=== PATIENT | male | born 1955 | race Caucasian/White ===

== ENCOUNTER 2023-10-25 07:55 | Outpatient (OUT) | payer OTHER, SELFPAY ==
--- NOTE | 2023-10-25 | XR_ITS ---
The [address] [address] Patient Name: VANESSA KEY MRN: [id number] date: 1955 Sex: M Assigned Patient Location: Current Patient Location: Accession/Order Number: [id number] Exam Date: 10/25/2023 07:56 Report Date: 10/27/2023 04:17 At the request of: NIR JEFFERS Procedure: XR shoulder LT min 2V PROCEDURE: XR shoulder LT min 2V HISTORY: LEFT SHOULDER PAIN since falling 3 months ago COMPARISON: None. FINDINGS: BONES:Small calcification along superior lateral margin of humeral head near site of rotator cuff attachment. Unremarkable glenohumeral joint and acromioclavicular joint. SOFT TISSUES:No visible soft tissue swelling. EFFUSION:None visible. OTHER: Negative. XR/XR shoulder LT min 2V IMPRESSION: 1. Nonspecific calcification near humeral head attachment of the superior rotator cuff; avulsion fracture versus calcific tendinitis. Consider MRI for further evaluation. Electronically authenticated by: NIR SANDOVAL Date: 10/27/2023 04:17
== END 2023-10-25 07:56 | disposition home or self-care (01) ==
LOC: EC 07:56
PROVIDERS: Visit Provider Orthopaedic Surgery
DX: M25.512 Pain in left shoulder (principal)
CPT/HCPCS: 73030

== ENCOUNTER 2023-12-24 10:12 | Outpatient (OUT) | payer OTHER, SELFPAY ==
--- OUTSIDE RECORDS SUMMARY | 2023-12-24 10:25 | XMS_ITS | CCD ---
Author Organization [facility] Care Team Providers Care Research Tech Name Role Phone PAULETTE CRAIN Unavailable Unavailable PAULETTE CRAIN Unavailable Unavailable REQUEST, NONE LISTED Consulting Unavaila ble REQUEST, NONE LISTED Admitting Unavaila ble REQUEST, NONE LISTED Attending Unavaila ble REQUEST, NONE LISTED Admitting Unavaila ble REQUEST, NONE LISTED Attending Unavaila ble REQUEST, NONE LISTED Consulting Unavaila ble REQUEST, NONE LISTED Consulting Unavaila ble REQUEST, NONE LISTED Admitting Unavaila ble REQUEST, NONE LISTED Attending Unavaila ble DO Corbin Mckinney Jr Attending Provider ARIELLE TERRELL Primary Care Physician Elayne Zepeda Referring Unavaila ble Elayne Zepeda Attending Unavaila Elayne Weiner Admitting Unavaila ble Elayne Zepeda Attending Unavaila ble Medications Current Medications Medication Drug Class(es) Dates Sig (Normalized) Sig (Original) {1 (Ascorbic Acid 7540 MG / POLYETHYLENE GLYCOL 3350 28815 MG / Potassium Chloride 1200 MG / Sodium Ascorbate 53018 MG / Sodium Chloride 3200 MG Powder for Oral Solution) / 1 (POLYETHYLENE GLYCOL 3350 409824 MG / Potassium Chloride 1000 MG / Sodium Chlori (1 source) Osmotic Laxative, Vitamin C Start: 12-16-2023 Plenvu oral powder for reconstitution See Instructions, 1 EA, Refill(s) 0, Oral, [id number], 78.2, kg, 12/16/23 12:35:00 EDT, Weight Dosing Start Date: 12/16/23 Status: Ordered Problems Active Problems Problem Classification Problem Date Documented Date Episodic/Chronic Other screening for suspected conditions (not mental disorders or infectious disease) (1 source) Screening for malignant neoplasm of colon done; Translations: [Encounter for screening for malignant neoplasm of colon] Onset: 12-14-2023 Episodic Unclassified (2 sources) Encounter for screening for cardiovascular disorders / Z13.6(ICD-9) Onset: 05-31-2017 Past or Other Problems Problem Classification Problem Date Documented Date Episodic/Chronic Unclassified (1 source) Encounter for screening for cardiovascular disorders; Translations: [Encounter for screening for cardiovascular disorders] Onset: 05-31-2017 Results Test Name Value Interpretation Reference Range Facility Main OR Intraoperative Recor don 12-23-2023 Main OR Intraoperative Record Main OR Intraoperative Record IntraOp Document Type FT Summary Primary Physician: Elayne Zepeda MD Finalized Date/Time: 12/23/23 10:58:27 Pt. Name: HARDYFROYLAN D.O.B./Sex: 1955 Male Med Rec #: [id number] Physician: Elayne Zepeda MD Financial #: [id number] Pt. Type: O Room/Bed: / Admit/Disch: 12/22/23 13:06:08 - 12/22/23 23:59:59 Institution: Case Times FT Entry 1 Patient Times In Room 12/22/23 14:02:00 Out Room 12/22/23 14:25:00 Procedure Times Start 12/22/23 14:04:00 Stop 12/22/23 14:22:00 Anesthesia Times Start 12/22/23 14:02:00 Stop 12/22/23 14:25:00 Time at [facility] 12/22/23 14:07:00 Last Modified By: Maria Douglas CST 12/23/23 10:58:25 General Comments: 12/23/23 Chart opened to review and send charges [facility]oth CSFA Case Attendance FT Entry 1 Entry 2 Entry 3 Case Attendee Alisha ENNIS, Yoel Pittman RN, Lisa Mohan Role Performed Anesthesiologist Repair Weaver - Primary Scrub - Primary Supervisor Keymodule [employer] Time In 12/22/23 14:00:00 12/22/23 14:00:00 12/22/23 14:00:00 Time Out 12/22/23 14:18:00 12/22/23 14:25:00 12/22/23 14:25:00 Procedure COLONOSCOPY(.) COLONOSCOPY(.) COLONOSCOPY(.) Comments Dr. Louis supervising case Last Modified By: Ish Pittman RN, RN, Ish Pires RN 12/22/23 14:25:57 12/22/23 14:25:57 12/22/23 14:25:57 Entry 4 Entry 5 Case Attendee Duane HARRIS, Elayne Murray DNP, TRAVEL ASSISTANT, [place]ie Stanley Role Performed Surgeon - Primary TRAVEL ASSISTANT Time In 12/22/23 14:00:00 12/22/23 14:17:00 Time Out 12/22/23 14:25:00 12/22/23 14:25:00 Procedure COLONOSCOPY(.) COLONOSCOPY(.) Comments Last Modified By: Ish Pittman RN, RN, Morgan E 12/22/23 14:25:57 12/22/23 14:25:57 Perioperative Protocols FT Pre-Care Text: Implements protective measures prior to operative or invasive procedure, confirms identity before the operative or invasive procedure, verifies operative procedure, surgical site, and laterality Entry 1 Procedure(s) COLONOSCOPY(.) Patient Identity Birthday, ID Band Verified (select at Check, Patient least 2): Participation Consents / H and P Anesthesia Consent, Operative Site N/A Verified H&P, Surgery/Procedure Marking Verified Consent Surgical Site No Laterality Verified n/a Verified Procedure Verified Yes Correct Patient Yes Position Verified Availability Equipment, Medication Prep Dry n/a Verified (If Applicable) PreOp Antibiotic No Time Out Yoel Shepherd, Given Participants Ish Pittman RN, Sparks, Micala E, Duane HARRIS, Elayne Mejias Time Out Complete 12/22/23 14:01:00 Outcomes Met? Yes Last Modified By: Ish Pittman RN 12/22/23 14:03:53 Post-Care Text: The patient is free from signs and symptoms of injury caused by extraneous objects Allergy Information FT Pre-Care Text: Verifies allergies Entry 1 Allergies Reviewed? Yes Allergies Reviewed Self/Patient With Outcomes Met? Yes Last Modified By: Ish Pittman RN 12/22/23 14:04:00 Post-Care Text: The patient received appropriate medication(s) safely administered during the perioperative period Surgical Procedures FT Entry 1 Procedure Description Procedure COLONOSCOPY Modifiers . Surgeon Description Colonoscopy with sigmoid colon polypectomy x2, hemoclip x1 applied to one of the polypectomy sites, sigmoid colon biopsy at 35cm, rectal polypectomy Primary Procedure Yes Primary Surgeon Elayne Zepeda MD Start 12/22/23 14:04:00 Stop 12/22/23 14:22:00 Anesthesia Type General Surgical Service Gastroenterology Wound Class 2 - Clean-Contaminated Last Modified By: Ish Pittman RN 12/22/23 14:32:37 General Case Data FT Pre-Care Text: Classifies surgical wound, implements aseptic technique, initiates traffic control Entry 1 Case Information OR ENDO 1 FT Case Level Level 2 Wound Class 2 - Clean-Contaminated Specialty Gastroenterology ASA Class 1 Preop Diagnosis Colon cancer screening Postop Same As Preop No Postop Diagnosis Diverticulosis, Sigmoid Outcomes Met? Yes colon polyps x2, Jacinta erythema in the sigmoid colon at 35cm, Rectal polyp, Internal hemorrhoids Last Modified By: Maria Douglas CST 12/23/23 10:58:10 Post-Care Text: The patient is free from signs and symptoms of infection Skin Assessment (Pre Procedure) FT Pre-Care Text: Implements protective measures to prevent skin/ tissue injury due to thermal or mechanical sources Evaluates for signs and symptoms of physical injury to skin and tissue Entry 1 Skin Integrity Dry, Warm Skin Abnormality No Outcomes Met? Yes Last Modified By: Ish Pittman RN 12/22/23 14:04:36 Post-Care Text: The patient is free from signs and symptoms of injury caused by extraneous objects Patient Positioning FT Pre-Care Text: Identifies physical alterations that require additional precautions for procedure-specific positioning, verifies presence of p (more content not included)... Normal [facility] Discharge Instructionson Discharge Instructions Discharge Instruc tions FROYLAN HARDY :1955 Visit Date:12/22/2023 Inpatient Discharge Instructions Your Care Team Admitting Physician - Elayne Zepeda MD Referring Physician - Elayne Zepeda MD Reason for Your Visit SCREEN FOR COLON CANCER Your Diagnosis Colon cancer screening Tests Performed Pathology Tissue Exam -- Results Pending -- Please visit your patient portal for your results or contact your primary care physician. Procedure History Colonoscopy (12/22/2023), right inguinal hernia repair (02/07/2016), hernia repair as child, History of right hip replacement, left ring finger tendon repair, right ankle fx. Discharge Vitals Temperature (Temporal Artery) 36.6 ?C Heart Rate (Monitored) 82 Respiratory Rate 19 Blood Pressure 120/82 Height 175.2 cm Weight 78.2 kg BMI 25.48 What to do next Instructions From Your Doctor Event Name Event Result Discharge Instructions Freetext Recommendations: Repeat colonoscopy: 3-5 years based on pathology Follow-up: in clinic for 1-2 weeks when pathology is available. Diet:: Previous. Medication resumption: Continue current medications, Avoid NSAIDs Discharge Activity Resume normal activities in 24 hours Discharge Restrictions No driving for 24 hrs Discharge Diet(s) Regular Call Your Doctor For Persistent or heavy bleeding Discharge Instructions Discharge Instructions New Follow Up Appointments after Discharge Follow Up with Duane HARRIS, ANUJA Taylor, [facility] When: Comments: Office will call to schedule follow up appointment and/or review any pending biopsy results Call for any problems. Where: [address] [place], [place] [address], [address] [address] [phone] Allergies No Known Allergies Education Materials Colon Polyps Colon polyps are tissue growths inside the colon, which is part of the large intestine. They are one of the types of polyps that can grow in the body. A polyp may be a round bump or a mushroom-shaped growth. You could have one polyp or more than one. Most colon polyps are noncancerous (benign). However, some colon polyps can become cancerous over time. Finding and removing the polyps early can help prevent this. What are the causes? The exact cause of colon polyps is not known. What increases the risk? The following factors may make you more likely to develop this condition: ? Having a family history of colorectal cancer or colon polyps. ? Being older than 45 years of age. ? Being younger than 45 years of age and having a significant family history of colorectal cancer or colon polyps or a genetic condition that puts you at higher risk of getting colon polyps. ? Having inflammatory bowel disease, such as ulcerative colitis or Crohn's disease. ? Having certain conditions passed from parent to child (hereditary conditions), such as: ? Familial adenomatous polyposis (FAP). ? Cedillo syndrome. ? Turcot syndrome. ? Peutz?Jeghers syndrome. ? MUTYH-associated polyposis (MAP). ? Being overweight. ? Certain lifestyle factors. These include smoking cigarettes, drinking too much alcohol, not getting enough exercise, and eating a diet that is high in fat and red meat and low in fiber. ? Having had childhood cancer that was treated with radiation of the abdomen. What are the signs or symptoms? Many times, there are no symptoms. If you have symptoms, they may include: ? Blood coming from the rectum during a bowel movement. ? Blood in the stool (feces). The blood may be bright red or very dark in color. ? Pain in the abdomen. ? A change in bowel habits, such as constipation or diarrhea. How is this diagnosed? This condition is diagnosed with a colonoscopy. This is a procedure in which a lighted, flexible scope is inserted into the opening between the buttocks (anus) and then passed into the colon to examine the area. Polyps are sometimes found when a colonoscopy is done as part of routine cancer screening tests. How is this treated? This condition is treated by removing any polyps that are found. Most polyps can be removed during a colonoscopy. Those polyps will then be tested for cancer. Additional treatment may be needed depending on the results of testing. Follow these instructions at home: Eating and drinking ? Eat foods that are high in fiber, such as fruits, vegetables, and whole grains. ? Eat foods that are high in calcium and vitamin D, such as milk, cheese, yogurt, eggs, liver, fish, and broccoli. ? Limit foods that are high in fat, such as fried foods and desserts. ? Limit the amount of red meat, precooked or cured meat, or other processed meat that you eat, such as hot dogs, sausages, harmon, or meat loaves. ? Limit sugary drinks. Lifestyle ? Maintain a healthy weight, or lose weight if recommended by your (more content not included)... Normal [facility] Comment on above: Result Comment: Elec tronically Signed By: Binta Silva RN\.haris\Date and Time Signed: 12/22/23 15:07 EDT Inpatient Patient Summaryon 12-22-2023 Inpatient Patient Summary Inpatient Patient Summary [place] [address] [facility] Clinical Discharge Instructions PERSON INFORMATION Name: FROYLAN HARDY PHYSICIANS Admitting Physician: Elayne Zepeda MD Attending Physician: Elayne Zepeda MD PCP: ARIELLE TERRELL DO Discharge Diagnosis: Colon cancer screening Comment: PATIENT EDUCATION INFORMATION Instructions: Medication Leaflets: Follow up: MEDICATION LIST Comment: Normal [facility] Main OR PACU II Recordon Main OR PACU II Record Main OR PACU II R ecord PACU Phase II Document Type FT Summary Primary Physician: Elayne Zepeda MD Finalized Date/Time: 12/22/23 15:35:35 Pt. Name: FROYLAN HARDY /Sex: 1955 Male Med Rec #: [id number] Physician: Elayne Zepeda MD Financial #: [id number] Pt. Type: O Room/Bed: / Admit/Disch: 12/22/23 13:06:08 - Institution: Case Times PACU II FT Pre-Care Text: Identifies barriers to communication and implements measures to provide psychological support and determines knowledge level Develops individualized plan of care, and ensures continuity of care Maintains patient's dignity and privacy, and maintains patient confidentiality Identifies and reports philosophical, cultural, and spiritual beliefs and values Identifies individual values and wishes concerning care administers prescribed antibiotic therapy and immunizing agents as ordered, Evaluates postoperative tissue perfusion Implements thermoregulation measures, and monitors body temperature Evaluates postoperative respiratory status Evaluates postoperative cardiac status Evaluates postoperative neurological status Assesses pain control, collaborated in initiating patient-controlled analgesia and implements alternative methods of pain control Verifies allergies, administers prescribed medications and solutions, evaluates response to medications Entry 1 In PACU II 12/22/23 14:26:00 Discharge from PACU 12/22/23 15:10:00 II Outcomes Met? Yes Last Modified By: Binta Silva RN 12/22/23 15:35:31 Post-Care Text: The patient demonstrates knowledge of the expected response to the operative or invasive procedure The patient's care is consistent with the individualized perioperative plan of care The patient's right to privacy is maintained The patient's value system, lifestyle, ethnicity, and culture are considered, respected, and incorporated into the perioperative plan of care The patient participates in decisions affecting his or her perioperative plan of care. The patient is free from signs and symptoms of infection The patient has wound/tissue perfusion consistent with or improved from baseline levels established preoperatively The patient is at or returning to normothermia at the conclusion of the immediate postoperative period The patient's respiratory function is consistent with or improved from baseline levels established preoperatively The patient's cardiovascular status is consistent with or improved from baseline levels established preoperatively The patient's neurological status is consistent with or improved from baseline levels established preoperatively The patient demonstrates and/or reports adequate pain control throughout the perioperative period The patient received appropriate medication(s), safely administered during the perioperative period Finalized By: Binta Silva RN Document Signatures Signed By: Binta Silva RN 12/22/23 15:35 Normal [facility] Main OR Preoperative Recordo n 12-22-2023 Main OR Preoperative Record Main OR Preoperative Record Holding Area Document Type FT Summary Primary Physician: Elayne Zepeda MD Finalized Date/Time: 12/22/23 13:17:19 Pt. Name: SHAHIDFROYLAN/Sex: 1955 Male Med Rec #: [id number] Physician: Elayne Zepeda MD Financial #: [id number] Pt. Type: O Room/Bed: / Admit/Disch: 12/22/23 13:06:08 - Institution: Case Times Holding FT Pre-Care Text: Verifies consent for planned procedure, identifies individual values and wishes concerning care, includes family members in perioperative teaching Secures patient's records' belongings, and valuables, maintains patient's dignity and privacy, and maintains patient confidentiality Entry 1 In Holding 12/22/23 13:15:00 Outcomes Met? Yes Last Modified By: Jana Harrison RN 12/22/23 13:15:58 Post-Care Text: The patient participates in decisions affecting his or her perioperative plan of care The patient's right to privacy is maintained Surgery Checklist FT Entry 1 Patient Birthday, ID Band Procedure History and Physical, Identification: Check, Patient Verification: Surgical Consent, With Participation Patient NPO after Midnight: No Date/Time: 12/22/23 08:30:00 Results Reviewed yellow results Personal Items: Glasses Comments: Personal Items right hip replacement Limitations: vision Comment: Complaints of Pain: No Pain Comment: denies Operative Site n/a Availability Equipment Marking: Verified: Does Patient Smoke No Patient states Yes Comment - Adult - Gagan postop adult Supervision supervision available Case Cancelled in No Holding Area see comments below for reason Last Modified By: Jana Harrison RN 12/22/23 13:17:15 General Comments: PT. NPO since bowel prep finished at 0830/AW RN Finalized By: Jana Harrison RN Document Signatures Signed By: Jana Harrison RN 12/22/23 13:17 Normal [facility] Outpatient Surgery Discharge Instructionon 12-22-2023 Outpatient Surgery Discharge Instruction Outpatient Surgery Discharge Instruction [place] [id number] Patient Discharge Instructions PERSON INFORMATION Name: HARDYFROYLAN Date of : 1955 Current Date: 12/22/2023 15:02:49 PHYSICIANS Admitting Physician: Duane HARRIS, Elayne Mejias Discharge Diagnosis: Colon cancer screening FROYLAN HARDY has been given the following list of follow-up instructions, prescriptions, and patient education materials: PATIENT FOLLOW-UP INFORMATION Diet: Regular Discharge Activity: Resume normal activities in 24 hours Discharge Restrictions: No driving for 24 hrs Call Your Doctor For: Persistent or heavy bleeding Additional Instructions: Recommendations: Repeat colonoscopy:: 3-5 years based on pathology . Follow-up:: in clinic for 1-2 weeks when pathology is available. Diet:: Previous. Medication resumption:: Continue current medications, Avoid NSAIDs. IF UNABLE TO CONTACT YOUR PHYSICIAN AND YOU FEEL IT IS AN EMERGENCY, GO TO THE NEAREST EMERGENCY ROOM OR CALL 911 I, FROYLAN HARDY, have received the attached patient education materials/instructions and have verbalized understanding: May we do a follow up call? Yes No I was present when discharge instructions were given Patient Signature Date Clinican/Nurse Signature ___ Date Follow up: Pharmacy Information: You may receive a survey from [facility] asking you to rate your care experience. Your feedback is important and will help us understand what we do well and how we can improve the quality of care we provide to you, your loved ones and our community. It?s an honor to serve you. Thank you for choosing [facility] HERE ARE THE MEDICATION CHANGES THAT OCCURRED DURING YOUR HOSPITAL STAY PATIENT EDUCATION INFORMATION Instructions: Medication Leaflets: Normal [facility] Ambulatory Visit Summaryon 0 12-16-2023 Ambulatory Visit Summary Ambulatory Visit Summary FROYLAN HARDY :1955 Visit Date:12/16/2023 Ambulatory Visit Instructions Your Diagnosis Screen for colon cancer Your Care Team Attending Physician - Duane HARRIS, Elayne Mejias Primary Care Physician - ARIELLE TERRELL DO This Is Your Medications List polyethylene glycol 3350 with electrolytes (Plenvu oral powder for reconstitution) Procedures Performed right inguinal hernia repair (02/07/2016), hernia repair as child, History of right hip replacement, left ring finger tendon repair, right ankle fx. Discharge Vitals Heart Rate (Peripheral) 89 Respiratory Rate 16 Blood Pressure 126/73 Weight 172.04 lb Weight 78.2 kg Medications What How Much When Why Instructions New polyethylene glycol 3350 with electrolytes (Plenvu oral powder for reconstitution) See instructions Screen for colon cancer Oral Pickup at [id number] Pharmacy Information [facility] #[id number]: [address] [place], [place] [phone] Allergies No Known Allergies Patient Survey You may receive a survey via text or e-mail asking about your office visit. Please share your experience with us by completing your survey. We appreciate your feedback and thank you for choosing us for your care. Normal [facility] Gastroenterology Office/Clin ic Noteon 12-16-2023 Gastroenterology Office/Clinic Note Gastroenterology Office/Clinic Note Chief Complaint screening HPI Staff This is a 68 year old male who presents today for a screening colonoscopy. Denies Blood Thinners. Denies GLP-1 Agonists. Denies any family history of colon cancer/polyps or IBD. Denies Dysphagia, abdominal pain, constipation, diarrhea or bloody stools. previous EGD/Colonoscopy- [address] [facility]. Denies recent imaging or labs. History of Present Illness Asymptomatic Review of Systems PHQ Score Initial Depression Screen Score: 0 SCORE Physical Exam Vitals & Measurements HR: 89(Peripheral) RR: 16 BP: 126/73 WT: 78.2 kg WT: 172.04 lb Assessment/Plan 1. Screen for colon cancer (Z12.11: Encounter for screening for malignant neoplasm of colon) discussed prep types patient is agreeable for colonoscopy Discussed all possible risk and benefits will proceed with colonoscopy, Ordered: polyethylene glycol 3350 with electrolytes, See Instructions, 1 EA, Refill(s) 0, Oral, [id number], 78.2, kg, 12/16/23 12:35:00 EDT, Weight Dosing E&M of New Patient Low 30-44 Min 34100 E&M of New Patient Moderate 45-59 Min 52354 Follow-up No qualifying data available Problem List/Past Medical History Ongoing No chronic problems Historical No qualifying data Procedure/Surgical History right inguinal hernia repair (02/07/2016), hernia repair as child, History of right hip replacement, left ring finger tendon repair, right ankle fx. Medications Plenvu oral powder for reconstitution, See Instructions Allergies No Known Allergies Social History Alcohol - Denies Alcohol Use, 01/31/2016 Substance Abuse - Denies Substance Abuse, 01/31/2016 Tobacco - Denies Tobacco Use, 01/31/2016 Never (less than 100 in lifetime) Tobacco Use:. Never Smokeless Tobacco Use:., 12/16/2023 Family History Family history is negative Normal [facility] Comment on above: Result Comment: Elec tronically Signed By: Duane HARRIS, Elayne Mejias\.haris\Date and Time Signed: 12/16/23 13:17 EDT Basophils Auto (Bld) [#/Vol] Ordered By: Corbin Mckinney on 07-01-2021 Basophils (Bld) [#/Vol] 0.0 10*3/uL 0.0-0.2 [facility] Basophils/100 WBC Auto (Bld) Ordered By: Corbin Mckinney on 07-01-2021 Basophils/100 WBC (Bld) 0.5 % [facility] Blood hemoglobin measurement (mass/volume)Ordered By: Corbin Mckinney on 07-01-2021 Hemoglobin (Bld) [Mass/Vol] 14.5 g/dL 13.0-17.0 [facility] Blood leukocytes automated c ount (number/volume)Ordered By: Corbin Mckinney on 07-01-2021 WBC (Bld) [#/Vol] 4.8 10*3/uL 4.5-11.0 [facility] Body fluid albumin measureme nt (mass/volume)Ordered By: Corbin Mckinney on 07-01-2021 Albumin (Body fld) [Mass/Vol] 4.2 g/dL 3.2-5.5 [facility] Cholesterol [Mass/volume] in Serum or PlasmaOrdered By: Corbin Mckinney on 07-01-2021 Cholesterol [Mass/Vol] 198 mg/dL 140-200 [facility] Comment on above: Chol less than 200 m g/dl low riskChol 201-239 mg/dl borderline riskChol 240 mg/dl and greater high risk Cholesterol in LDL Calc [Mas s/Vol]Ordered By: Corbin Mckinney on 07-01-2021 Cholesterol in LDL [Mass/Vol] 123 mg/dL 0-100 [facility] Comment on above: LDL ATP III CLASSIFI CATIONLDL less than 100 mg/dL OptimalLDL 100-129 mg/dL Near or above optimalLDL 130-159 mg/dL Borderline highLDL 160-189 mg/dL HighLDL greater than 189 mg/dL Very high Cholesterol in VLDL Calc [Ma ss/Vol]Ordered By: Corbin Mckinney on 07-01-2021 Cholesterol in VLDL [Mass/Vol] 24 mg/dL [facility] Complete Blood Count no refl exon 07-01-2021 Basophils (Bld) [#/Vol] 0.0 10*3/uL Normal 0.0-0.2 [facility] Comment on above: Result Comment: PERF ORMED BY: [place] [address] PATHOLOGIST LENS DOTTER COLE MELENDEZ M.D. Performed By: #### C MP, LIPID, CHC CBC #### [facility] [address] Basophils/100 WBC (Bld) 0.5 % Normal . [facility] Comment on above: Performed By: #### C MP, LIPID, CHC CBC #### [facility] [address] [place] [address] [place] Eosinophils (Bld) [#/Vol] 0.1 10*3/uL Normal 0.0-0.45 [facility] Comment on above: Performed By: #### C MP, LIPID, CHC CBC #### [facility] [address] [place] [address] [place] Eosinophils/100 WBC (Bld) 1.3 % Normal . [facility] Comment on above: Performed By: #### C MP, LIPID, CHC CBC #### [facility] [address] [place] [address] [place] Erythrocyte distribution width (RBC) [Ratio] 13.4 % Normal 12.0-14.8 [facility] Comment on above: Performed By: #### C MP, LIPID, CHC CBC #### [facility] [address] [place] [address] [place] Hematocrit (Bld) [Volume fraction] 42.1 % Normal 38.8-50.0 [facility] Comment on above: Performed By: #### C MP, LIPID, CHC CBC #### [facility] [address] Hemoglobin (Bld) [Mass/Vol] 14.5 g/dL Normal 13.0-17.0 [facility] Comment on above: Performed By: #### C MP, LIPID, CHC CBC #### [facility] [address] Lymphocytes (Bld) [#/Vol] 1.3 10*3/uL Normal 1.00-4.8 [facility] Comment on above: Performed By: #### C MP, LIPID, CHC CBC #### [address] Lymphocytes/100 WBC (Bld) 26.8 % Normal . [facility] Comment on above: Performed By: #### C MP, LIPID, CHC CBC #### [address] MCH (RBC) [Entitic mass] 32.4 pg Normal 27.5-35.2 [facility] Comment on above: Performed By: #### C MP, LIPID, CHC CBC #### [address] MCV (RBC) [Entitic vol] 93.8 fL Normal 83.5-101 [facility] Comment on above: Performed By: #### C MP, LIPID, CHC CBC #### [address] Mean Corpuscular HGB Conc 34.5 g/dL Normal 32.5-35.6 [facility] Comment on above: Performed By: #### C MP, LIPID, CHC CBC #### [place] [address] [place] Monocytes (Bld) [#/Vol] 0.4 10*3/uL Normal 0.0-0.8 [facility] Comment on above: Performed By: #### C MP, LIPID, CHC CBC #### [place] [address] [place] Monocytes/100 WBC (Bld) 7.7 % Normal . [facility] Comment on above: Performed By: #### C MP, LIPID, CHC CBC #### [facility] [address] [place] [address] [place] Neutrophils (Bld) [#/Vol] 3.0 10*3/uL Normal 1.8-7.7 [facility] Comment on above: Performed By: #### C MP, LIPID, CHC CBC #### [facility] [address] Neutrophils/100 WBC (Bld) 63.7 % Normal . [facility] Comment on above: Performed By: #### C MP, LIPID, CHC CBC #### [place] [address] [place] Nucleated RBC/100 WBC (Bld) [Ratio] 0.1 % Normal 0-0.5 [facility] Comment on above: Performed By: #### C MP, LIPID, CHC CBC #### [address] Platelet mean volume (Bld) [Entitic vol] 7.9 fL Normal 6.6-10.1 [facility] Comment on above: Performed By: #### C MP, LIPID, CHC CBC #### [place] [address] [place] Platelets (Bld) [#/Vol] 240 10*3/uL Normal 150-450 [facility] Comment on above: Performed By: #### C MP, LIPID, CHC CBC #### [facility] [address] [place] [address] [place] RBC (Bld) [#/Vol] 4.49 10*6/uL Normal 3.90-5.60 [facility] Comment on above: Performed By: #### C MP, LIPID, CHC CBC #### [place] [address] [place] WBC (Bld) [#/Vol] 4.8 10*3/uL Normal 4.5-11.0 [facility] Comment on above: Performed By: #### C MP, LIPID, CHC CBC #### [address] Comprehensive Metabolic Pane jimbo 07-01-2021 Albumin [Mass/Vol] 4.2 g/dL Normal 3.2-5.5 [facility] Comment on above: Performed By: #### C MP, LIPID, CHC CBC #### [facility] [address] Albumin/Globulin [Mass ratio] 1.7 {ratio} Normal [facility] Comment on above: Performed By: #### C MP, LIPID, CHC CBC #### [facility] [address] ALP [Catalytic activity/Vol] 49 U/L Normal 32-92 [facility] Comment on above: Performed By: #### C MP, LIPID, CHC CBC #### [address] ALT [Catalytic activity/Vol] 16 U/L Normal 10-60 [facility] Comment on above: Performed By: #### C MP, LIPID, CHC CBC #### [address] AST [Catalytic activity/Vol] 21 U/L Normal 10-42 [facility] Comment on above: Performed By: #### C MP, LIPID, CHC CBC #### [address] Bilirubin [Mass/Vol] 0.7 mg/dL Normal 0.3-1.2 [facility] Comment on above: Performed By: #### C MP, LIPID, CHC CBC #### [facility] [address] Calcium [Mass/Vol] 9.6 mg/dL Normal 8.2-10.2 [facility] Comment on above: Performed By: #### C MP, LIPID, CHC CBC #### [facility] [address] Chloride [Moles/Vol] 104 mmol/L Normal 95-114 [facility] Comment on above: Performed By: #### C MP, LIPID, CHC CBC #### [address] CO2 [Moles/Vol] 23.7 mmol/L Normal 22.0-30.0 [facility] Comment on above: Performed By: #### C MP, LIPID, CHC CBC #### [address] Creatinine [Mass/Vol] 0.92 mg/dL Normal 0.64-1.[address] [facility] Comment on above: Performed By: #### C MP, LIPID, CHC CBC #### [address] Estimated GFR ( Rebekah > 60 [facility] Comment on above: Result Comment: GFR estimated reference range: According to KDOQI guidelines, <60 ml/min/1.73m2 is sufficient to diagnose a patient with chronic kidney disease. Performed By: #### C MP, LIPID, CHC CBC #### [address] Estimated GFR (Non- Am > 60 [facility] Comment on above: Performed By: #### C MP, LIPID, CHC CBC #### [address] Globulin (S) [Mass/Vol] 2.5 g/dL [facility] Comment on above: Performed By: #### C MP, LIPID, CHC CBC #### [address] Glucose [Mass/Vol] 111 mg/dL High 70-100 [facility] Comment on above: Result Comment: [place] Glucose Reference Range is dependent on time and content of last meal. Glucose of more than 200 mg/dL in a nonstressed, ambulatory subject supports the diagnosis of Diabetes Mellitus. ADA recommended reference range Performed By: #### C MP, LIPID, CHC CBC #### [address] Potassium [Moles/Vol] 4.4 mmol/L Normal 3.5-5.[address] [facility] Comment on above: Performed By: #### C MP, LIPID, CHC CBC #### [address] [place] [address] [place] Protein [Mass/Vol] 6.7 g/dL Normal 6.1-7.9 [facility] Comment on above: Performed By: #### C MP, LIPID, CHC CBC #### [facility] [address] [place] [id number] [place] Sodium [Moles/Vol] 138 mmol/L Normal 136-146 [facility] Comment on above: Performed By: #### C MP, LIPID, CHC CBC #### [facility] [address] [place] [address] [place] Urea nitrogen [Mass/Vol] 19 mg/dL Normal 9-23 [facility] Comment on above: Performed By: #### C MP, LIPID, CHC CBC #### [facility] [address] [place] [address] [place] Creatinine and Glomerular fi ltration rate.predicted panel (S/P/Bld)Ordered By: Corbin Mckinney on 07-01-2021 Creatinine [Mass/Vol] 0.92 mg/dL 0.64-1.[address] [facility] Eosinophils Auto (Bld) [#/Vo l]Ordered By: Corbin Mckinney on 07-01-2021 Eosinophils (Bld) [#/Vol] 0.1 10*3/uL 0.0-0.45 [facility] Eosinophils/100 WBC Auto (Bl d)Ordered By: Corbin Mckinney on 07-01-2021 Eosinophils/100 WBC (Bld) 1.3 % [facility] Erythrocyte distribution wid th Auto (RBC) [Ratio]Ordered By: Corbin Mckinney on 07-01-2021 Erythrocyte distribution width (RBC) [Ratio] 13.4 % 12.0-14.8 [facility] Estimated glomerular filtrat ion rate (GFR) non- AmericanOrdered By: Corbin Mckinney on 07-01-2021 GFR/1.73 sq M.predicted among non-blacks MDRD (S/P/Bld) [Vol rate/Area] > 60 mL/Min [facility] Globulin Calc (S) [Mass/Vol] Ordered By: Corbin Mckinney on 07-01-2021 Globulin (S) [Mass/Vol] 2.5 g/dL [facility] Hematocrit Auto (Bld) [Volum e fraction]Ordered By: Corbin Mckinney on 07-01-2021 Hematocrit (Bld) [Volume fraction] 42.1 % 38.8-50.0 [facility] Laboratory - Hematology and Cell countsOrdered By: Corbin Mckinney on 07-01-2021 Nucleated RBC/100 WBC (Bld) [Ratio] 0.1 % 0-0.5 [facility] Lipid Panelon 07-01-2021 Cholesterol [Mass/Vol] 198 mg/dL Normal 140-200 [facility] Comment on above: Result Comment: Chol less than 200 mg/dl low risk Chol 201-239 mg/dl borderline risk Chol 240 mg/dl and greater high risk Performed By: #### C MP, LIPID, CHC CBC #### [facility] [address] Cholesterol in HDL [Mass/Vol] 50 mg/dL Normal 29-71 [facility] Comment on above: Result Comment: HDL CHOL ATP-III CLASSIFICATION Cardiovascular Risk HDL > or equal to 60 mg/dL LOW HDL < 40 mg/dL HIGH Performed By: #### C MP, LIPID, CHC CBC #### [facility] [address] Cholesterol.total/Chol esterol in HDL [Mass ratio] 4.0 {ratio} Normal <5.0 [facility] Comment on above: Result Comment: PERF ORMED BY: [place] [address] PATHOLOGIST LENS DOTTER COLE MELENDEZ M.D. Performed By: #### C MP, LIPID, CHC CBC #### [facility] [address] [place] [address] [place] LDL Cholesterol,Calculated 123 mg/dL High 0-100 [facility] Comment on above: Result Comment: LDL ATP III CLASSIFICATION LDL less than 100 mg/dL Optimal LDL 100-129 mg/dL Near or above optimal LDL 130-159 mg/dL Borderline high LDL 160-189 mg/dL High LDL greater than 189 mg/dL Very high Performed By: #### C MP, LIPID, CHC CBC #### [facility] [address] Triglyceride w/Reflex 124 mg/dL Normal 35-[address] [facility] Comment on above: Result Comment: TRIG ATP III CLASSIFICATION TRIG less than 150 mg/dL Normal TRIG 150-199 mg/dL Borderline high TRIG 200-500 mg/dL High TRIG greater than 500 mg/dL Very high Standard traceable to the Center for Disease Conrtrol and Prevention (CDC) test method. Performed By: #### C MP, LIPID, CHC CBC #### [facility] [address] VLDL CHOLESTEROL 24 mg/dL Normal [facility] Comment on above: Performed By: #### C MP, LIPID, CHC CBC #### [facility] [address] Lymphocytes Auto (Bld) [#/Vo l]Ordered By: Corbin Mckinney on 07-01-2021 Lymphocytes (Bld) [#/Vol] 1.3 10*3/uL 1.00-4.8 [facility] Lymphocytes/100 WBC Auto (Bl d)Ordered By: Corbin Mckinney on 07-01-2021 Lymphocytes/100 WBC (Bld) 26.8 % [facility] MCH Auto (RBC) [Entitic mass ]Ordered By: Corbin Mckinney on 07-01-2021 MCH (RBC) [Entitic mass] 32.4 pg 27.5-35.2 [facility] MCHC Auto (RBC) [Mass/Vol]Or dered By: Corbin Mckinney on 07-01-2021 MCHC (RBC) [Mass/Vol] 34.5 g/dL 32.5-35.[address] [facility] MCV Auto (RBC) [Entitic vol] Ordered By: Corbin Mckinney on 07-01-2021 MCV (RBC) [Entitic vol] 93.8 fL 83.5-101 [facility] Monocytes Auto (Bld) [#/Vol] Ordered By: Corbin Mckinney on 07-01-2021 Monocytes (Bld) [#/Vol] 0.4 10*3/uL 0.0-0.8 [facility] Monocytes/100 WBC Auto (Bld) Ordered By: Corbin Mckinney on 07-01-2021 Monocytes/100 WBC (Bld) 7.7 % [facility] Neutrophils Auto (Bld) [#/Vo l]Ordered By: Corbin Mckinney on 07-01-2021 Neutrophils (Bld) [#/Vol] 3.0 10*3/uL 1.8-7.7 [facility] Neutrophils/100 WBC Auto (Bl d)Ordered By: Corbin Mckinney on 07-01-2021 Neutrophils/100 WBC (Bld) 63.7 % [facility] No Panel InformationOrdered By: Corbin Mckinney on 07-01-2021 Estimated GFR () > 60 mL/Min [facility] Comment on above: GFR estimated refere nce range: According to KDOQI guidelines, <60 ml/min/1.73m2 is sufficient to diagnose a patient with chronic kidney disease. Pharmacy Creatinine Clearance (Chem N/A [facility] Platelet mean volume Auto (B ld) [Entitic vol]Ordered By: Corbin Mckinney on 07-01-2021 Platelet mean volume (Bld) [Entitic vol] 7.9 fL 6.6-10.1 [facility] Platelets Auto (Bld) [#/Vol] Ordered By: Corbin Mckinney on 07-01-2021 Platelets (Bld) [#/Vol] 240 10*3/uL 150-450 [facility] Protein [Mass/volume] in Ser um or PlasmaOrdered By: Corbin Mckinney on 07-01-2021 Protein [Mass/Vol] 6.7 g/dL 6.1-7.9 [facility] RBC Auto (Bld) [#/Vol]Ordere d By: Corbin Mckinney on 07-01-2021 RBC (Bld) [#/Vol] 4.49 10*6/uL 3.90-5.60 [facility] Serum or plasma alanine fiore otransferase measurement without P-5'-P (enzymatic activiOrdered By: Corbin Mckinney on 07-01-2021 ALT No additional P-5'-P [Catalytic activity/Vol] 16 U/L 10-60 [facility] Serum or plasma albumin/glob ulin mass ratioOrdered By: Corbin Mckinney on 07-01-2021 Albumin/Globulin [Mass ratio] 1.7 {ratio} [facility] Serum or plasma alkaline crow sphatase measurement (enzymatic activity/volume)Ordered By: Corbin Mckinney on 07-01-2021 ALP [Catalytic activity/Vol] 49 U/L 32-92 [facility] Serum or plasma aspartate am inotransferase measurement (enzymatic activity/volume)Ordered By: Corbin Mckinney on 07-01-2021 AST [Catalytic activity/Vol] 21 U/L 10-42 [facility] Serum or plasma calcium carlos manuel urement (mass/volume)Ordered By: Corbin Mckinney on 07-01-2021 Calcium [Mass/Vol] 9.6 mg/dL 8.2-10.2 [facility] Serum or plasma chloride rafa surement (moles/volume)Ordered By: Corbin Mckinney on 07-01-2021 Chloride [Moles/Vol] 104 mmol/L 95-114 [facility] Serum or plasma glucose carlos manuel urement (mass/volume)Ordered By: Corbin Mckinney on 07-01-2021 Glucose [Mass/Vol] 111 mg/dL 70-100 [facility] Comment on above: ADA recommended refe rence rangeRandom Glucose Reference Range is dependent on time and content of last meal. Glucose of more than 200 mg/dL in a nonstressed, ambulatory subject supports the diagnosis of Diabetes Mellitus. Serum or plasma high density lipoprotein (HDL) cholesterol measurementOrdered By: Corbin Mckinney on 07-01-2021 Cholesterol in HDL [Mass/Vol] 50 mg/dL 29-71 [facility] Comment on above: HDL CHOL ATP-III CLA SSIFICATION Cardiovascular RiskHDL > or equal to 60 mg/dL LOWHDL < 40 mg/dL HIGH Serum or plasma potassium me asurement (moles/volume)Ordered By: Corbin Mckinney on 07-01-2021 Potassium [Moles/Vol] 4.4 mmol/L 3.5-5.[address] [facility] Serum or plasma sodium measu rement (moles/volume)Ordered By: Corbin Mckinney on 07-01-2021 Sodium [Moles/Vol] 138 mmol/L 136-146 [facility] Serum or plasma total biliru bin measurement (mass/volume)Ordered By: Corbin Mckinney on 07-01-2021 Bilirubin [Mass/Vol] 0.7 mg/dL 0.3-1.2 [facility] Serum or plasma total carbon dioxide measurement (moles/volume)Ordered By: Corbin Mckinney on 07-01-2021 CO2 [Moles/Vol] 23.7 mmol/L 22.0-30.0 [facility] Serum or plasma total choles terol/high density lipoprotein (HDL) cholesterol mass ratOrdered By: Corbin Mckinney on 07-01-2021 Cholesterol.total/Chol esterol in HDL [Mass ratio] 4.0 {ratio} [facility] Serum or plasma urea nitroge n measurement (mass/volume)Ordered By: Corbin Mckinney on 07-01-2021 Urea nitrogen [Mass/Vol] 19 mg/dL 9-23 [facility] Triglyceride [Mass/volume] i n Serum or PlasmaOrdered By: Corbin Mckinney on 07-01-2021 Triglyceride [Mass/Vol] 124 mg/dL 35-149 [facility] Comment on above: TRIG ATP III CLASSIF ICATIONTRIG less than 150 mg/dL NormalTRIG 150-199 mg/dL Borderline highTRIG 200-500 mg/dL High TRIG greater than 500 mg/dL Very highStandard traceable to the Center for Disease Conrtrol and Prevention (CDC) test method. XR chest 2V*on 07-01-2021 XR chest 2V* [place] [address] XRay Report Signed Patient: Froylan Hardy MR#: [id number] : 1955 Acct:[id number] Age/Sex: 66 / M ADM Date: 07/01/21 Loc: [place] Room: Type: [facility] REF Attending Dr: Corbin Mckinney Jr, DO Ordering Provider: Corbin Mckinney DO Date of Service: 07/01/21 XR/XR chest 2V*: ANNUAL EMPLOYMENT PHYSICAL Copies to: Corbin Mckinney DO PA AND LATERAL CHEST: CLINICAL HISTORY: Employment physical COMPARISON: 10/30/2019 There is no focal parenchymal consolidation, effusion or pneumothorax. The cardiac, hilar and mediastinal silhouettes are within normal limits. There is no vascular congestion. The visualized bony thorax is intact. There is mild endplate spurring. XR/XR chest 2V* IMPRESSION: NO ACUTE CARDIOPULMONARY ABNORMALITY. Impression dictated by: Zeinab Reyes M.D.07/01/2021 10:06 AM Dictation Location: [facility]--13 Transcribed By: [facility] 07/01/21 1006 Dictated By: Zeinab Reyes MD 07/01/21 1005 Signed By: 07/01/21 1006 [facility] Vital Signs Date Time Vital Sign Value Performing Clinician Faci lity 12-16-2023 12:36-0400 Diastolic blood pressure 73 mm[Hg] Holly Sarmini [facility] 12-16-2023 12:36-0400 Heart rate 89 /min Holly Sarmini [facility] 12-16-2023 12:36-0400 Systolic blood pressure 126 mm[Hg] Holly Sarmini [facility] 12-16-2023 12:32-0400 Blood Pressure Location Holly Sarmini [facility] 12-16-2023 12:32-0400 Respiratory rate 16 /min Ohlly Sarmini [facility] Encounters Encounter Date Encounter Type Care Provider Facility Start: 12-22-2023 End: 12-22-2023 ambulatory Holly Talal Sarmini [place] Start: 12-16-2023 End: 12-16-2023 ambulatory Holly Talal Sarmini Facility:[facility] Start: 12-16-2023 End: 12-16-2023 Patient encounter procedure Holly Talal Sarmini [facility] Start: 12-02-2023 ambulatory Holly Sarmini Facili ty:[facility] Start: 07-01-2021 End: 07-01-2021 Departed Referred DO Corbin Mckinney Jr [facility] Phone[facility] [address] Start: 03-17-2021 End: 03-18-[address] NONE LISTED REQUEST Facility:[facility] Start: 06-25-2020 End: 06-26-2020 ambulatory NONE LISTED REQUEST Facility:[facility] Start: 06-03-2020 End: 06-04-2020 ambulatory NONE LISTED REQUEST Facility:[facility] Start: 05-31-2017 Ambulatory PAULETTE KUNS Facility:1 532 Start: 05-31-2017 Ambulatory Facility:9 507 Procedures Date Procedure Procedure Detail Performing Clinician Start: 07-01-2021 Plain chest X-ray DO Ed acosta Hank Odonnell Work Phone: Start: 03-17-[address] GIVENS L ISTED REQUEST Comment on above: Performed By: #### D ATPSA #### [facility] [address] [place] [address] Dr. Shelli Sood Start: 02-07-2016 right inguinal herni a repair Holly Sarmini hernia repair as child 1 Muh ammad Sarmini Comment on above: unknown side History of right hip replacement Holly Sarmini left ring finger ten don repair Holly Sarmini right ankle fx Holly Sarm ini Payers Date Payer Category Payer Medicare [id number] 2019 Private Health Insurance [id number] 1957 Self-pay [id number] 1955 Unknown [id number] [id number] 1955 Unknown [id number] [id number] 1955 Unknown [id number] [id number] [id number] Unknown FROYLAN HARDY Unknown [id number] 2.16.84 [id number] Unknown [id number] 2.16.84 [id number] Unknown [id number] [id number] [id number] Social History Date Type Detail Facility [facility] Work Phone: Start: 1955 Sex Assigned At Male [facility] Start: 12-16-2023 Tobacco smoking status Never s moked tobacco (finding) [facility] Tobacco smoking status Never [facility] Sex Assigned At Male [facility] Functional Status Date Assessment Result Facility 12-16-2023 Functional Status N/A [facility] Clinical Note 12-22-2023 Note Date & Type Note Facility 12-22-2023 Note Progress Note-Physic lilo Patient: FROYLAN HARDY Age: 68 years Sex: Male : 1955 Associated Diagnoses: None Author: Heriberto HARRIS, Carlitos Tse Preoperative Information Anesthesia Preop Info: Time patient last ate or drank 12/22/2023 00:00:00. Anesthesia history: Patient history: None. Family history+: None. Informed consent: Signed by patient. Re-evaluation prior to induction: Initial evaluation reviewed: No significant change. Review of Systems Eye Ear/Nose/Mouth/Throat Respiratory: No shortness of breath, No cough. Cardiovascular: Negative, No chest pain. Gastrointestinal: No heartburn. Musculoskeletal Neurologic Health Status Allergies: Allergic Reactions (Selected) No Known Allergies, Allergies (1) Active Severity Reaction No Known Allergies None Documented Current medications: (Selected) Inpatient Medications Ordered Sodium Chloride 0.9% IV Luci 1000 mL 1,000 mL: 1,000 mL, IV, 20 mL/hr, Routine, Start date 10/02/24 6:51:00 EDT, 50 hour(s), Total volume (mL): 1,000, 78.2 kg, No qualifying data available , Medications (1) Active Scheduled: (0) Continuous: (1) Sodium Chloride 0.9% 1,000 mL 1,000 mL, IV, 20 mL/hr PRN: (0) Problem list: All Problems No Chronic Problems / Cerner NKP, Active Problems (1) No Chronic Problems Histories Past Medical History: No active or resolved past medical history items have been selected or recorded. Family History: Entire family history is negative. Procedure history: Colonoscopy ([id number]) on 12/22/2023 at 68 Years. right inguinal hernia repair on 02/07/2016 at 60 Years. History of right hip replacement ([id number]). right ankle fx. left ring finger tendon repair. hernia repair as child. Comments: 01/31/2016 8:20 MICHELLE Chapin RN, [facility] unknown side Social History Social & Psychosocial Habits Alcohol 12/16/2023 Risk Assessment: Denies Alcohol Use Substance Abuse 12/16/2023 Risk Assessment: Denies Substance Abuse Tobacco 12/16/2023 Risk Assessment: Denies Tobacco Use 12/16/2023 Tobacco Use: Never (less than 100 in l Smokeless tobacco use: Never . Physical Examination Vital Signs 12/22/2023 15:10 EDT Heart Rate Monitored 75 bpm Respiratory Rate 16 br/min Systolic Blood Pressure 144 mmHg HI Diastolic Blood Pressure 85 mmHg Blood Pressure Location Left arm Mean Arterial Pressure, Cuff 105 mmHg SpO2 97 % 12/22/2023 14:55 EDT Heart Rate Monitored 82 bpm Respiratory Rate Monitored 16 br/min Systolic Blood Pressure 122 mmHg Diastolic Blood Pressure 101 mmHg HI Blood Pressure Location Left arm Mean Arterial Pressure, Cuff 108 mmHg SpO2 94 % 12/22/2023 14:40 EDT Heart Rate Monitored 82 bpm Respiratory Rate Monitored 19 br/min Systolic Blood Pressure 120 mmHg Diastolic Blood Pressure 82 mmHg Blood Pressure Location Left arm Mean Arterial Pressure, Cuff 95 mmHg SpO2 93 % 12/22/2023 14:35 EDT Heart Rate Monitored 93 bpm Respiratory Rate 16 br/min Systolic Blood Pressure 120 mmHg Diastolic Blood Pressure 85 mmHg Blood Pressure Location Left arm SpO2 95 % 12/22/2023 14:30 EDT Heart Rate Monitored 97 bpm Respiratory Rate Monitored 21 br/min Systolic Blood Pressure 112 mmHg Diastolic Blood Pressure 81 mmHg Blood Pressure Location Left arm SpO2 94 % 12/22/2023 14:26 EDT Temperature Temporal Artery 36.6 DegC Heart Rate Monitored 98 bpm Respiratory Rate Monitored 18 br/min Systolic Blood Pressure 108 mmHg Diastolic Blood Pressure 76 mmHg Blood Pressure Location Left arm SpO2 95 % 12/22/2023 14:21 EDT Systolic Blood Pressure 110 mmHg mmHg Diastolic Blood Pressure 73 mmHg mmHg 12/22/2023 14:20 EDT Heart Rate Monitored 90 bpm bpm Respiratory Rate 24 br/min br/min Respiratory Rate Monitored 24 br/min br/min SpO2 98 % % 12/22/2023 14:18 EDT Systolic Blood Pressure 119 mmHg mmHg Diastolic Blood Pressure 78 mmHg mmHg 12/22/2023 14:15 EDT Heart Rate Monitored 116 bpm bpm Respiratory Rate 24 br/min br/min Respiratory Rate Monitored 14 br/min br/min Systolic Blood Pressure 126 mmHg mmHg Diastolic Blood Pressure 87 mmHg mmHg SpO2 98 % % 12/22/2023 14:12 EDT Systolic Blood Pressure 125 mmHg mmHg Diastolic Blood Pressure 89 mmHg mmHg 12/22/2023 14:10 EDT Heart Rate Monitored 102 bpm bpm Respiratory Rate 24 br/min br/min Respiratory Rate Monitored 11 br/min br/min SpO2 97 % % 12/22/2023 14:09 EDT Systolic Blood Pressure 115 mmHg mmHg Diastolic Blood Pressure 86 mmHg mmHg 12/22/2023 14:06 EDT Respiratory Rate 24 br/min br/min Systolic Blood Pressure 105 mmHg mmHg Diastolic Blood Pressure 77 mmHg mmHg 12/22/2023 14:05 EDT Heart Rate Monitored 90 bpm bpm Respiratory Rate Monitored 10 br/min br/min SpO2 95 % % 12/22/2023 14:03 EDT Systolic Blood Pressure 93 mmHg mmHg Diastolic Blood Pressure 69 mmHg mmHg 12/22/2023 14:01 EDT Systolic Blood Pressure 130 mmHg mmHg Diastolic Blood Pressure 84 mmHg mmHg (more content not included)... [facility] Comment on above: Result Comment: Elec tronically Signed By: Heriberto HARRIS, Carlitos Tse\.br\Date and Time Signed: 12/22/23 16:16 EDT Clinical Note 12-22-2023 Note Date & Type Note Facility 12-22-2023 Note Progress Note-Physic lilo Patient: FROYLAN HARDY Age: 68 years Sex: Male : 1955 Associated Diagnoses: None Author: Carlitos Louis MD Postoperative Information Postoperative disposition: Postoperative disposition: To PACU. Optimetrix number: Optimetrix number [id number]. Anesthetic utilized: General. Health Status Allergies: Allergic Reactions (Selected) No Known Allergies Physical Examination Vital Signs 12/22/2023 15:10 EDT Heart Rate Monitored 75 bpm Respiratory Rate 16 br/min Systolic Blood Pressure 144 mmHg HI Diastolic Blood Pressure 85 mmHg Blood Pressure Location Left arm Mean Arterial Pressure, Cuff 105 mmHg SpO2 97 % 12/22/2023 14:55 EDT Heart Rate Monitored 82 bpm Respiratory Rate Monitored 16 br/min Systolic Blood Pressure 122 mmHg Diastolic Blood Pressure 101 mmHg HI Blood Pressure Location Left arm Mean Arterial Pressure, Cuff 108 mmHg SpO2 94 % 12/22/2023 14:40 EDT Heart Rate Monitored 82 bpm Respiratory Rate Monitored 19 br/min Systolic Blood Pressure 120 mmHg Diastolic Blood Pressure 82 mmHg Blood Pressure Location Left arm Mean Arterial Pressure, Cuff 95 mmHg SpO2 93 % Pain Assessment: Controlled. General: Awake, Appropriate. Respiratory: Adequate air exchange. Cardiovascular: Stable. Neurological Assessment Anesthetic outcome No anesthetic complications noted. Adequate pain relief. Review / Management Condition: Stable. Plan Transfer/Discharge: Transfer/Discharge Discharge when meets criteria ( To home ). [facility] Comment on above: Result Comment: Elec tronically Signed By: Carlitos Louis MD\.br\Date and Time Signed: 12/22/23 16:10 EDT Clinical Note 12-22-2023 Note Date & Type Note Facility 12-22-2023 Note Patient Education - Text Colonoscopy Care After Surgery Please read the instructions outlined below and refer to this sheet in the next few weeks. These discharge instructions provide you with general information on caring for yourself after you leave the hospital. Your doctor may also give you specific instructions. While your treatment has been planned according to the most current medical practices available, unavoidable complications occasionally occur. If you have any problems or questions after discharge, please call your doctor. ACTIVITY You may resume your regular activity, but move at a slower pace for the next 24 hours. Take frequent rest periods for the next 24 hours. Walking will help get rid of the air and reduce the bloated feeling in your abdomen (belly). No driving for 24 hours (because of the anesthesia (medicine) used during the test). You may shower. Do not sign any important legal documents or operate any machinery for 24 hours (because of the anesthesia used during the test). NUTRITION Drink plenty of fluids. You may resume your normal diet as instructed by your doctor. Begin with a light meal and progress to your normal diet. Heavy or fried foods are harder to digest and may make you feel nauseated (sick to your stomach). Avoid alcoholic beverages for 24 hours or as instructed. MEDICATIONS You may resume your normal medications unless your doctor tells you otherwise. WHAT YOU CAN EXPECT TODAY Some feelings of bloating in the abdomen. Passage of more gas than usual. Spotting of blood in your stool or on the toilet paper. FOLLOW-UP Your doctor will discuss the results of your test with you. SEEK IMMEDIATE MEDICAL ATTENTION IF: There is more than a spotting of blood in your stool. There is abdominal distention (your abdomen is swollen). There is vomiting. You have a temperature over 101.5 F. There is abdominal pain or discomfort that is severe or gets worse throughout the day. Gastroenterology Diverticulosis Diverticulosis is when small pouches called diverticula form in the wall of the colon. The colon is where water is absorbed. It is also where poop (stool) is formed. The pouches form when the inside layer of the colon pushes through weak spots in the outer layers of the colon. You may have a few pouches or many of them. In most cases, the pouches do not cause problems. If they become inflamed or infected, you may have a condition called diverticulitis. What are the causes? The cause of this condition is not known. What increases the risk? You are more likely to get this condition if: ? You are older than 60 years of age. ? You do not eat enough fiber or you get constipated a lot. ? You are overweight. ? You do not get enough exercise. ? You smoke. ? You take hxjs-biv-shnbpil pain medicines. ? You have a family history of the condition. What are the signs or symptoms? In most people, there are no symptoms. If you do have symptoms, they may include: ? Bloating. ? Stomach cramps. ? Constipation or diarrhea. ? Pain in the lower left side of your abdomen. How is this diagnosed? This condition is often diagnosed during an exam for other colon problems. It may be diagnosed when you have: ? A colonoscopy. This is when a tube with a camera on the end is used to look at your colon. ? A barium enema. This is an X-ray exam that uses dye to look at your colon. ? A CT scan. How is this treated? You may not need treatment. Your health care provider will tell you what you can do at home to help prevent problems. You may need treatment if you have symptoms or if you have had diverticulitis before. You may be told to: ? Eat a high-fiber diet. ? Take medicine to relax your colon. ? Lose weight. Follow these instructions at home: Medicines ? Take kezy-agz-ydjzkcr and prescription medicines only as told by your provider. ? If told, take a fiber supplement or probiotic. Managing constipation Your condition may cause constipation. To prevent or treat constipation, you may need to: ? Drink enough fluid to keep your pee (urine) pale yellow. ? Take wtkt-dol-ltgmhlk or prescription medicines. ? Eat foods that are high in fiber, such as beans, whole grains, and fresh fruits and vegetables. ? Limit foods that are high in fat and processed sugars, such as fried or sweet foods. Try not to strain when you poop. Contact a health care provider if: ? Your symptoms get worse all of a sudden. ? You have pain in your abdomen that gets worse. ? You have bloating or stomach cramps. ? You continue to have frequent constipation. ? You have a fever or chills. ? You vomit. ? Your poop is bloody, black, or tarry. This information is not intended to replace advice given to you by your health care provider. Make sure you discuss any questions you have with your health care provider. Document Orly (more content not included)... [facility] Clinical Note 12-22-2023 Note Date & Type Note Facility 12-22-2023 Note Endoscopic Procedure Report - Other Patient: FROYLAN HARDY Age: 68 years Sex: Male : 1955 Associated Diagnoses: None Author: Elayne Zepeda MD Pre-Procedure Procedure Date 12/22/2023 14:24:00 . Procedure Type: Colonoscopy with removal of tumor(s), polyp(s), or other lesion(s) by cold snare technique. Procedure provider Performed by Elayne Zepeda MD. Current history and physical Documented on chart. right inguinal hernia repair on 02/07/2016 at 60 Years. History of right hip replacement ([id number]). right ankle fx. left ring finger tendon repair. hernia repair as child. Comments: 01/31/2016 8:20 MICHELLE Chapin RN, [facility] unknown side. Past Medical History No active or resolved past medical history items have been selected or recorded.. reviewed. Family History Entire family history is negative.. reviewed. Procedure History right inguinal hernia repair on 02/07/2016 at 60 Years. History of right hip replacement ([id number]). right ankle fx. left ring finger tendon repair. hernia repair as child. Comments: 01/31/2016 8:20 MICHELLE Chapin RN, [facility] unknown side. Colorectal neoplasm risk assessment Average risk. Informed Consent After discussing the rationale, risks and benefits, and alternatives to this procedure, the patient provided signed consent for the procedure. Pre-procedure diagnosis: Screening. Medications (Selected) Inpatient Medications Ordered Sodium Chloride 0.9% IV Luci 1000 mL 1,000 mL: 1,000 mL, IV, 20 mL/hr, Routine, Start date 12/22/23 6:51:00 EDT, 50 hour(s), Total volume (mL): 1,000, 78.2 kg reviewed. ASA Classification: Class II. . Monitoring: See anesthesia record. . Procedure The procedure was performed in the hospital. See anesthesia record for sedation given during procedure. The patient was positioned starting in the left lateral decubitus position. Endoscope type used was an adult-size. The endoscope was lubricated then introduced through the anus. The scope was advanced to the terminal ileum. No difficulties encountered during the procedure. The bowel preparation quality was excellent and was adequate (see polyps greater than or equal to 6 millimeters). The patient tolerated the procedure well. Time to Cecum: 3 min Withdrawal time 15 min Last colonoscopy: 10 years ago Findings 1. moderate internal hemorrhoids seen on retroflexion 2. Moderate sigmoid diverticulosis 3. 5 mm sessile polyp in the rectum, resected with cold snare completely and retrieved 4. Another 2 sessile polyps in the sigmoid colon, 2-7 mm in size, resected with cold snare completely and retrieved. 1 clip was placed at the 7 mm polyp polypectomy site 5. Normal examined terminal ileum Images Procedure images: Rec1_hd_video__[id number] pg Rec1_hd_video__[id number] pg Rec1_hd_video___[id number].j pg Rec1_hd_video__[id number].j pg Rec1_hd_video__30_[id number].j pg Rec1_hd_video__[id number].j pg Rec1_hd_video___[id number].j pg Rec1_hd_video___[id number].j pg Rec1_hd_video__[id number].j pg Rec1_hd_video__25_[id number].j pg Rec1_hd_video__[id number].j pg Rec1_hd_video__20_[id number].j pg Rec1_hd_video__[id number].j pg Rec1_hd_video__[id number].j pg Rec1_hd_video_2023_10___[id number].j pg Rec1_hd_video_2023____29_315.j pg Rec1_hd_video_2023____24_[id number].j pg . Post-Procedure Complications: none. Estimated blood loss: Minimal. Specimens: sent to pathology. Devices/ implants: none left in place. Impression and Plan 1. moderate internal hemorrhoids seen on retroflexion 2. Moderate sigmoid diverticulosis 3. 5 mm sessile polyp in the rectum, resected with cold snare completely and retrieved 4. Another 2 sessile polyps in the sigmoid colon, 2-7 mm in size, resected with cold snare completely and retrieved. 1 clip was placed at the 7 mm polyp polypectomy site 5. Normal examined terminal ileum Recommendations: Repeat colonoscopy:: 3-5 years based on pathology . Follow-up:: in clinic for 1-2 weeks when pathology is available. Diet:: Previous. Medication resumption:: Continue current medications, Avoid NSAIDs. (more content not included)... [facility] Comment on above: Result Comment: Elec tronically Signed By: Duane HARRIS, Elayne Mejias\.br\Date and Time Signed: 12/22/23 14:27 EDT Other Comment: Noreen schulte Attachment - attachment storage system not supported [id number] Can be viewed in source system Missing Attachment - attachment storage system not supported [id number] Can be viewed in source system Missing Attachment - attachment storage system not supported [id number] Can be viewed in source system Missing Attachment - attachment storage system not supported [id number] Can be viewed in source system Missing Attachment - attachment storage system not supported [id number] Can be viewed in source system Missing Attachment - attachment storage system not supported [id number] Can be viewed in source system Missing Attachment - attachment storage system not supported [id number] Can be viewed in source system Missing Attachment - attachment storage system not supported [id number] Can be viewed in source system Missing Attachment - attachment storage system not supported [id number] Can be viewed in source system Missing Attachment - attachment storage system not supported [id number] Can be viewed in source system Missing Attachment - attachment storage system not supported [id number] Can be viewed in source system Missing Attachment - attachment storage system not supported [id number] Can be viewed in source system Missing Attachment - attachment storage system not supported [id number] Can be viewed in source system Missing Attachment - attachment storage system not supported [id number] Can be viewed in source system Missing Attachment - attachment storage system not supported [id number] Can be viewed in source system Missing Attachment - attachment storage system not supported [id number] Can be viewed in source system Missing Attachment - attachment storage system not supported [id number] Can be viewed in source system History and physical note 12-22-2023 Note Date & Type Note Facility 12-22-2023 Note History and Physical Patient: FROYLAN HARDY Age: 68 years Sex: Male : 1955 Associated Diagnoses: None Author: Duane HARRIS, Elayne Mejias Preoperative Information Indication for procedure and diagnosis: screening colon cancer Chief Complaint as above Review of Systems All systems reviewed, negative except as mentioned above Health Status Current medications: (Selected) Inpatient Medications Ordered Sodium Chloride 0.9% IV Luci 1000 mL 1,000 mL: 1,000 mL, IV, 20 mL/hr, Routine, Start date 12/22/23 6:51:00 EDT, 50 hour(s), Total volume (mL): 1,000, 78.2 kg, No qualifying data available Problem list: All Problems No Chronic Problems / Cerner NKP Histories Past Medical History: No active or resolved past medical history items have been selected or recorded. Family History: Entire family history is negative. Procedure history: right inguinal hernia repair on 02/07/2016 at 60 Years. History of right hip replacement ([id number]). right ankle fx. left ring finger tendon repair. hernia repair as child. Comments: 01/31/2016 8:20 MICHELLE Chapin RN, [facility] unknown side Social History Social & Psychosocial Habits Alcohol 12/16/2023 Risk Assessment: Denies Alcohol Use Substance Abuse 12/16/2023 Risk Assessment: Denies Substance Abuse Tobacco 12/16/2023 Risk Assessment: Denies Tobacco Use 12/16/2023 Tobacco Use: Never (less than 100 in l Smokeless tobacco use: Never . Physical Examination Vital Signs (last 24 hrs) Last Charted Temp Temporal 36.5 DegC (DEC 21:) Heart Rate Monitored 97 bpm (DEC 21:) Resp Rate 19 br/min (DEC 21:) SBP 127 mmHg (DEC 21:) DBP 89 mmHg (DEC 21:) Weight 78.2 kg (DEC 21 13:) BMI 25.48 (DEC 21:) General: in Nad Abdomen: Soft, NTND Impression and Plan Impression: screening colon cancer Plan: - Colonoscopy [facility] Comment on above: Result Comment: Elec tronically Signed By: Duane HARRIS, Elayne Mejias\.br\Date and Time Signed: 12/22/23 13:57 EDT Evaluation + Plan note Note Date & Type Note Facility Evaluation + Plan note Future Appointments Appointment Date:12/22/2023 02:00:00 PM Scheduled Provider: Location:[facility] Appointment Type:Surgery [facility] Evaluation note Note Date & Type Note Facility [facility] Narrative Note Date & Type Note Facility Hospital course Narrative No data available for this section [facility] Hospital Discharge instructions Note Date & Type Note Facility Hospital Discharge instructions No data available for this section [facility] Progress note Note Date & Type Note Facility Progress note No data available for this section [facility] Summary Purpose Family History No Family History Records FoundNo Family History Records FoundNo Family History Records FoundNo Family History Records Found No data available for this section No Family History Records Found Advance Directives No Advanced Directives Records FoundNo Advanced Directives Records FoundNo Advanced Directives Records FoundNo Advanced Directives Records FoundNo Advanced Directives Records Found Chief Complaint and Reason for Visit Chief Complaint LABS Additional Source Comments (unrecognized sect ion and content) No Status Records FoundNo Status Records FoundNo Status Records FoundNo Status Records FoundNo Status Records Found INFORMATION SOURCE (unrecogn ized section and content) DATE CREATED AUTHOR 09/10/2017 [facility] DATE CREATED AUTHOR AUTHOR'S ORGANIZ ATION 09/10/2017 [facility] DATE CREATED AUTHOR AUTHOR'S ORGANIZ ATION 03/18/2021 [facility] DATE CREATED AUTHOR AUTHOR'S ORGANIZ ATION 07/02/2021 [facility] DATE CREATED AUTHOR AUTHOR'S ORGANIZ ATION 12/24/2023 Vivek Maier [facility] Care Teams (unrecognized sec tion and content) Team Status: Inactive Member Role Status Dates Corbin Mckinney Jr, Attending Provider Active Goals (unrecognized section and content) Goals may be documented in a n alternate section No data available for this section FOR RECORDS PERTAINING TO PATIENTS WHO ARE OR HAVE BEEN ENROLLED IN A CHEMICAL DEPENDENCY/SUBSTANCEABUSE PROGRAM, SOME INFORMATION MAY BE OMITTED. This clinical summary was aggregated from multiple sources. Caution should be exercised in using it in the provision of clinical care. This summary normalizes information from multiple sources, and as a consequence, information in this document may materially change the coding, format and clinical context of patient data. In addition, data may be omitted in some cases. CLINICAL DECISIONS SHOULD BE BASED ON THE PRIMARY CLINICAL RECORDS. [facility] [employer] provides no warranty or guarantee of the accuracy or completeness of information in this document.
[2023-12-24 12:02] LABS: Prostate Specific Antigen Scrn 1.01 ng/mL (<=4.00)
== END 2023-12-24 10:13 | disposition home or self-care (01) ==
LOC: LAB 10:15
PROVIDERS: PCP Internal Medicine; Visit Provider Internal Medicine
DX: Z12.5 Encounter for screening for malignant neoplasm of prostate (principal)
CPT/HCPCS: 36415; G0103

== ENCOUNTER 2023-12-31 07:55 | Outpatient (OUT) | payer OTHER, SELFPAY ==
--- OUTSIDE RECORDS SUMMARY | 2023-12-31 07:58 | XMS_ITS | CCD ---
Author Organization [facility] Care Team Providers Care Tank Processor Name Role Phone PAULETTE CRAIN Unavailable Unavailable [...] ble DO Corbin Mckinney Jr Attending Provider [phone] ARIELLE TERRELL Primary Care Physician Elayne Zepeda Referring Unavaila ble Elayne Zepeda Attending Unavaila Elayne Weiner Admitting Unavaila ble Elayne Zepeda Attending Unavaila ble Medications Current Medications Medication Drug Class(es) Dates Sig (Normalized) Sig (Original) {1 (Ascorbic Acid 7540 MG / POLYETHYLENE GLYCOL 3350 75944 MG / Potassium Chloride 1200 MG / Sodium Ascorbate 19748 MG / Sodium Chloride 3200 MG Powder for Oral Solution) / 1 (POLYETHYLENE GLYCOL 3350 317536 MG / Potassium Chloride 1000 MG / [...] conditions (not mental disorders or infectious disease) (2 sources) Screening for malignant neoplasm of colon done; [...] Test Name Value Interpretation Reference Range Facility Surgical Pathology Reporton 12-27-2023 Surgical Pathology Report [facility] [address] [place] [address]- Surgical Pathology Report Collected Date/Time: 12/22/2023 14:14 EDT Pathologist: Barrie HARRIS PhD, Shelli Toney Received Date/Time: 12/23/2023 08:42 EDT Duane HARRIS, Elayne Zepeda MD, Elayne Mejias 07 Surgical Pathology Report - 12/27/2023 13:20 EDT - Auth (Verified) Final Diagnosis A: POLYPS, SIGMOID COLON, POLYPECTOMY: - HYPERPLASTIC POLYPS. B: SIGMOID COLON, 35 CM, BIOPSY: - COLONIC MUCOSA WITH FOCAL HYPERPLASTIC CHANGES. C: POLYP, RECTUM, POLYPECTOMY: - SESSILE SERRATED ADENOMA. (Electronic Signature) Shelli Sood MD PhD 12/27/2023 13:20 Clinical Information Colon cancer screening Pre-Op Diagnosis: Colon cancer screening Procedure: Colonoscopy Post-Op Diagnosis: 1. Moderate internal hemorrhoids seen on retroflexion 2. Moderate sigmoid diverticulosis 3. 5 mm sessile polyp in the rectum, resected with cold snare completely and retrieved 4. Another 2 sessile polyps in the sigmoid colon, 2-7 mm in size, resected with cold snare completely and retrieved. One clip was placed at the 7 mm polyp polypectomy site 5. Normal examined terminal ileum Specimen(s) Received A: Sigmoid colon polyps B: Sigmoid colon biopsy at 35cm C: Rectal polyp Gross Description A: Received in formalin labeled with patient name, number, and sigmoid colon polyps are multiple fragments of marse tissue ranging from less than 0.1 cm up to 0.5 cm in greatest dimension measuring in aggregate 1 x 0.3 x 0.1 cm. The specimen is entirely submitted in one cassette. B: Received in formalin labeled with patient name, number, and sigmoid colon biopsy at 35 cm is a single fragment of mares tissue measuring 0.1 x 0.1 x 0.1 cm. Specimen is entirely submitted in one cassette. C: Received in formalin labeled with patient name, number, and rectal polyp are multiple fragments of mares/pink tissue ranging from less than 0.1 cm up to 0.5 cm in greatest dimension. Specimen measures in aggregate 1 x 0.7 x 0.1 cm. It is entirely submitted in one cassette. (DC) DC:[facility] Microscopic Description Microscopic examination performed unless gross only specified. Normal [facility] Comment on above: Performed By: #### [id number] #### [facility] [address] [place] [address] Main OR Intraoperative Recor don 12-23-2023 Main OR Intraoperative Record Main OR Intraoperative Record IntraOp Document Type FT Summary Primary Physician: Elayne Zepeda MD Finalized Date/Time: 12/23/23 10:58:27 Pt. Name: SHAHID FROYLANARNAV Ken/Sex: 1955 Male Med Rec #: [id number] Physician: Elayne Zepeda MD Financial #: [id number] Pt. Type: O Room/Bed: / Admit/Disch: 12/22/23 [...] Pittman RN, Lisa Mohan Role Performed Anesthesiologist Candy Starch Mold Printer - Primary Scrub - Primary Claim Trainee Time In 12/22/23 14:00:00 12/22/23 14:00:00 12/22/23 14:00:00 Time Out 12/22/23 14:18:00 12/22/23 14:25:00 12/22/23 14:25:00 Procedure COLONOSCOPY(.) COLONOSCOPY(.) COLONOSCOPY(.) Comments Dr. Louis supervising case Last Modified By: Ish Pittman RN, RN, Ish Pires RN 12/22/23 14:25:57 12/22/23 14:25:57 12/22/23 14:25:57 Entry 4 Entry 5 Case Attendee Duane HARRIS, Elayne Murray DNP, COSMETIC SALES ADVISOR, [place] Stanley Role Performed Surgeon - Primary COSMETIC SALES ADVISOR Time In 12/22/23 14:00:00 12/22/23 14:17:00 Time [...] rectal polypectomy Primary Procedure Yes Primary Surgeon Duane HARRIS, Elayne Mejias Start 12/22/23 14:04:00 Stop 12/22/23 14:22:00 Anesthesia [...] of p (more content not included)... Normal [facility] Discharge Instructionson Discharge Instructions Discharge Instruc tions SHAHID FROYLAN G :1955 Visit Date:12/22/2023 Inpatient Discharge Instructions Your Care Team Admitting Physician - Elayne Zepeda MD Referring Physician - Duane HARRIS, Elayne Mejias Reason for Your Visit SCREEN FOR COLON [...] after Discharge Follow Up with Duane HARRIS, Elayne Mejias, [facility] When: Comments: Office will call to schedule follow up appointment and/or review any pending biopsy results Call for any problems. Where: [facility] [address], [address] [phone] Allergies No Known Allergies Education Materials Colon [...] by your (more content not included)... Normal [facility] Comment on above: Result Comment: Elec tronically Signed By: Ricardo LOMBARDO, Binta\.br\Date and Time Signed: 12/22/23 15:07 EDT Inpatient Patient Summaryon 12-22-2023 Inpatient Patient Summary Inpatient Patient Summary [place] [id number] [facility] Clinical Discharge Instructions PERSON INFORMATION Name: FROYLAN HARDY PHYSICIANS Admitting Physician: Elayne Zepeda MD Attending Physician: Elayne Zepeda MD PCP: ARIELLE TERRELL DO Discharge Diagnosis: Colon cancer screening Comment: PATIENT EDUCATION INFORMATION Instructions: Medication Leaflets: Follow up: MEDICATION LIST Comment: Normal [facility] Main OR PACU II Recordon Main OR PACU II Record Main OR PACU II R ecord PACU Phase II Document Type FT Summary Primary Physician: Elayne Zepeda MD Finalized Date/Time: 12/22/23 15:35:35 Pt. Name: HARDYFROYLAN D.O.B./Sex: 1955 Male Med Rec #: [id number] Physician: Elayne Zepeda MD Financial #: [id number] Pt. Type: O Room/Bed: / Admit/Disch: 12/22/23 [...] By: Binta Silva RN 12/22/23 15:35 Normal [facility] Main OR Preoperative Recordo n 12-22-2023 Main OR Preoperative Record Main OR Preoperative Record Holding Area Document Type FT Summary Primary Physician: Elayne Zepeda MD Finalized Date/Time: 12/22/23 13:17:19 Pt. Name: FROYLAN HARDY/Sex: 1955 Male Med Rec #: [id number] Physician: Elayne Zepeda MD Financial #: [id number] Pt. Type: O Room/Bed: / Admit/Disch: 12/22/23 [...] By: Jana Harrison RN 12/22/23 13:17 Normal [facility] Outpatient Surgery Discharge Instructionon 12-22-2023 Outpatient Surgery Discharge Instruction Outpatient Surgery Discharge Instruction [place] [id number] Patient Discharge Instructions PERSON INFORMATION Name: FROYLAN HARDY Date of : 1955 Current Date: 12/22/2023 15:02:49 PHYSICIANS Admitting Physician: Elayne Zepeda MD Discharge Diagnosis: Colon cancer screening FROYLAN HARDY [...] to serve you. Thank you for choosing [facility] HERE ARE THE MEDICATION CHANGES THAT OCCURRED DURING YOUR HOSPITAL STAY PATIENT EDUCATION INFORMATION Instructions: Medication Leaflets: Normal [facility] Ambulatory Visit Summaryon 0 12-16-2023 Ambulatory Visit [...] Screen for colon cancer Oral Pickup at [facility] #[id number] Pharmacy Information [facility]/pharmacy #[id number]: [address], [place] [id number] [phone] Allergies No Known Allergies Patient Survey You may receive a survey via text or e-mail asking about your office visit. Please share your experience with us by completing your survey. We appreciate your feedback and thank you for choosing us for your care. [facility] Gastroenterology Office/Clin ic Noteon 12-16-2023 Gastroenterology Office/Clinic Note Gastroenterology Office/Clinic Note Chief Complaint screening HPI Staff This is a 68 year old male who presents today for a screening colonoscopy. Denies Blood Thinners. Denies GLP-1 Agonists. Denies any family history of colon cancer/polyps or IBD. Denies Dysphagia, abdominal pain, constipation, diarrhea or bloody stools. previous EGD/Colonoscopy- 10 years [facility]. Denies recent imaging or labs. History of [...] See Instructions, 1 EA, Refill(s) 0, Oral, [facility] #[id number], 78.2, kg, 12/16/23 12:35:00 EDT, Weight Dosing E&M of New Patient Low 30-44 Min 16301 E&M of New Patient Moderate 45-59 Min 26974 Follow-up No qualifying data available Problem List/Past [...] Family History Family history is negative Normal [facility] Comment on above: Result Comment: Elec tronically Signed By: Duane HARRIS, Elayne Mejias\.br\Date and Time Signed: 12/16/23 13:17 EDT Basophils Auto (Bld) [#/Vol] Ordered By: Corbin Mckinney on 07-01-2021 Basophils (Bld) [#/Vol] 0.0 10*3/uL 0.0-0.2 [facility] Basophils/100 WBC Auto (Bld) Ordered By: Corbin Mckinney on 07-01-2021 Basophils/100 WBC (Bld) 0.5 % [facility] Blood hemoglobin measurement (mass/volume)Ordered By: Corbin Mckinney on 07-01-2021 Hemoglobin (Bld) [Mass/Vol] 14.5 g/dL 13.0-17.0 [facility] Blood leukocytes automated c ount (number/volume)Ordered By: Corbin Mckinney on 07-01-2021 WBC (Bld) [#/Vol] 4.8 10*3/uL 4.5-11.0 [facility] Body fluid albumin measureme nt (mass/volume)Ordered By: Corbin Mckinney on 07-01-2021 Albumin (Body fld) [Mass/Vol] 4.2 g/dL 3.2-5.5 [facility] Cholesterol [Mass/volume] in Serum or PlasmaOrdered By: Corbin Mckinney on 07-01-2021 Cholesterol [Mass/Vol] 198 mg/dL 140-200 [facility] Comment on above: Chol less than 200 m g/dl low riskChol 201-239 mg/dl borderline riskChol 240 mg/dl and greater high risk Cholesterol in LDL Calc [Mas s/Vol]Ordered By: Corbin Mckniney on 07-01-2021 Cholesterol in LDL [Mass/Vol] 123 mg/dL 0-100 [facility] Comment on above: LDL ATP III CLASSIFI CATIONLDL less than 100 mg/dL OptimalLDL 100-129 mg/dL Near or above optimalLDL 130-159 mg/dL Borderline highLDL 160-189 mg/dL HighLDL greater than 189 mg/dL Very high Cholesterol in VLDL Calc [Ma ss/Vol]Ordered By: Corbin Mckinney on 07-01-2021 Cholesterol in VLDL [Mass/Vol] 24 mg/dL [facility] Complete Blood Count no refl exon 07-01-2021 Basophils (Bld) [#/Vol] 0.0 10*3/uL Normal 0.0-0.2 [facility] Comment on above: Result Comment: PERF ORMED BY: [place] [address] PATHOLOGIST SPINE SPECIALIST COLE MELENDEZ M.D. Performed By: #### C MP, LIPID, [facility] CBC #### [facility] [address] [place] [address] [place] Basophils/100 WBC (Bld) 0.5 % Normal . [facility] Comment on above: Performed By: #### C MP, LIPID, [facility] CBC #### [facility] [address] [place] [address] [place] Eosinophils (Bld) [#/Vol] 0.1 10*3/uL Normal 0.0-0.45 [facility] Comment on above: Performed By: #### C MP, LIPID, [facility] CBC #### [facility] [address] [place] [address] [place] Eosinophils/100 WBC (Bld) 1.3 % Normal . [facility] Comment on above: Performed By: #### C MP, LIPID, [facility] CBC #### [facility] [address] [place] [address] [place] Erythrocyte distribution width (RBC) [Ratio] 13.4 % Normal 12.0-14.8 [facility] Comment on above: Performed By: #### C MP, LIPID, [facility] CBC #### [facility] [address] Hematocrit (Bld) [Volume fraction] 42.1 % Normal 38.8-50.0 [facility] Comment on above: Performed By: #### C MP, LIPID, [facility] CBC #### [facility] [address] Hemoglobin (Bld) [Mass/Vol] 14.5 g/dL Normal 13.0-17.0 [facility] Comment on above: Performed By: #### C MP, LIPID, [facility] CBC #### [facility] [address] Lymphocytes (Bld) [#/Vol] 1.3 10*3/uL Normal 1.00-4.8 [facility] Comment on above: Performed By: #### C MP, LIPID, [facility] CBC #### [address] Lymphocytes/100 WBC (Bld) 26.8 % Normal . [facility] Comment on above: Performed By: #### C MP, LIPID, [facility] CBC #### [address] MCH (RBC) [Entitic mass] 32.4 pg Normal 27.5-35.2 [facility] Comment on above: Performed By: #### C MP, LIPID, [facility] CBC #### [address] MCV (RBC) [Entitic vol] 93.8 fL Normal 83.5-101 [facility] Comment on above: Performed By: #### C MP, LIPID, [facility] CBC #### [address] Mean Corpuscular HGB Conc 34.5 g/dL Normal 32.5-35.6 [facility] Comment on above: Performed By: #### C MP, LIPID, [facility] CBC #### [place] [address] [place] Monocytes (Bld) [#/Vol] 0.4 10*3/uL Normal 0.0-0.8 [facility] Comment on above: Performed By: #### C MP, LIPID, [facility] CBC #### [facility] [address] [place] [address] [place] Monocytes/100 WBC (Bld) 7.7 % Normal . [facility] Comment on above: Performed By: #### C MP, LIPID, [facility] CBC #### [facility] [address] Neutrophils (Bld) [#/Vol] 3.0 10*3/uL Normal 1.8-7.7 [facility] Comment on above: Performed By: #### C MP, LIPID, [facility] CBC #### [facility] [address] [place] [address] [place] Neutrophils/100 WBC (Bld) 63.7 % Normal . [facility] Comment on above: Performed By: #### C MP, LIPID, [facility] CBC #### [facility] [address] [place] [address] [place] Nucleated RBC/100 WBC (Bld) [Ratio] 0.1 % Normal 0-0.5 [facility] Comment on above: Performed By: #### C MP, LIPID, [facility] CBC #### [facility] [address] [place] [address] [place] Platelet mean volume (Bld) [Entitic vol] 7.9 fL Normal 6.6-10.1 [facility] Comment on above: Performed By: #### C MP, LIPID, [facility] CBC #### [facility] [address] [place] [address] [place] Platelets (Bld) [#/Vol] 240 10*3/uL Normal 150-450 [facility] Comment on above: Performed By: #### C MP, LIPID, [facility] CBC #### [facility] [address] [place] [address] [place] RBC (Bld) [#/Vol] 4.49 10*6/uL Normal 3.90-5.60 [facility] Comment on above: Performed By: #### C MP, LIPID, [facility] CBC #### [facility] [address] [place] [address] [place] WBC (Bld) [#/Vol] 4.8 10*3/uL Normal 4.5-11.0 [facility] Comment on above: Performed By: #### C MP, LIPID, [facility] CBC #### [facility] [address] Comprehensive Metabolic Pane jimbo 07-01-2021 Albumin [Mass/Vol] 4.2 g/dL Normal 3.2-5.5 [facility] Comment on above: Performed By: #### C MP, LIPID, [facility] CBC #### [facility] [address] Albumin/Globulin [Mass ratio] 1.7 {ratio} Normal [facility] Comment on above: Performed By: #### C MP, LIPID, [facility] CBC #### [address] ALP [Catalytic activity/Vol] 49 U/L Normal 32-92 [facility] Comment on above: Performed By: #### C MP, LIPID, [facility] CBC #### [address] ALT [Catalytic activity/Vol] 16 U/L Normal 10-60 [facility] Comment on above: Performed By: #### C MP, LIPID, [facility] CBC #### [address] AST [Catalytic activity/Vol] 21 U/L Normal 10-42 [facility] Comment on above: Performed By: #### C MP, LIPID, [facility] CBC #### [address] Bilirubin [Mass/Vol] 0.7 mg/dL Normal 0.3-1.2 [facility] Comment on above: Performed By: #### C MP, LIPID, [facility] CBC #### [facility] [address] Calcium [Mass/Vol] 9.6 mg/dL Normal 8.2-10.2 [facility] Comment on above: Performed By: #### C MP, LIPID, [facility] CBC #### [address] [place] [address] [place] Chloride [Moles/Vol] 104 mmol/L Normal 95-114 [facility] Comment on above: Performed By: #### C MP, LIPID, [facility] CBC #### [address] CO2 [Moles/Vol] 23.7 mmol/L Normal 22.0-30.0 [facility] Comment on above: Performed By: #### C MP, LIPID, [facility] CBC #### [address] Creatinine [Mass/Vol] 0.92 mg/dL Normal 0.64-1.27 [facility] Comment on above: Performed By: #### C MP, LIPID, [facility] CBC #### [address] Estimated GFR ( Rebekah > 60 [facility] Comment on above: Result Comment: GFR estimated reference range: According to KDOQI guidelines, <60 ml/min/1.73m2 is sufficient to diagnose a patient with chronic kidney disease. Performed By: #### C MP, LIPID, [facility] CBC #### [address] Estimated GFR (Non- Am > 60 [facility] Comment on above: Performed By: #### C MP, LIPID, [facility] CBC #### [address] Globulin (S) [Mass/Vol] 2.5 g/dL [facility] Comment on above: Performed By: #### C MP, LIPID, [facility] CBC #### [place] [address] [place] Glucose [Mass/Vol] 111 mg/dL High 70-100 [facility] Comment on above: Result Comment: [facility] Glucose Reference Range is dependent on time and content of last meal. Glucose of more than 200 mg/dL in a nonstressed, ambulatory subject supports the diagnosis of Diabetes Mellitus. ADA recommended reference range Performed By: #### C MP, LIPID, [facility] CBC #### [place] [id number] [place] Potassium [Moles/Vol] 4.4 mmol/L Normal 3.5-5.1 [facility] Comment on above: Performed By: #### C MP, LIPID, [facility] CBC #### [facility] [address] [place] [address] [place] Protein [Mass/Vol] 6.7 g/dL Normal 6.1-7.9 [facility] Comment on above: Performed By: #### C MP, LIPID, [facility] CBC #### [facility] [address] [place] [address] [place] Sodium [Moles/Vol] 138 mmol/L Normal 136-146 [facility] Comment on above: Performed By: #### C MP, LIPID, [facility] CBC #### [facility] [address] [place] [address] [place] Urea nitrogen [Mass/Vol] 19 mg/dL Normal 9-23 [facility] Comment on above: Performed By: #### C MP, LIPID, [facility] CBC #### [facility] [address] [place] [address] [place] Creatinine and Glomerular fi ltration rate.predicted panel (S/P/Bld)Ordered By: Corbin Mckinney on 07-01-2021 Creatinine [Mass/Vol] 0.92 mg/dL 0.64-1.27 [facility] Eosinophils Auto (Bld) [#/Vo l]Ordered By: Corbin Mckinney on 07-01-2021 Eosinophils (Bld) [#/Vol] 0.1 10*3/uL 0.0-0.45 [facility] Eosinophils/100 WBC Auto (Bl d)Ordered By: Corbin Mckinney on 07-01-2021 Eosinophils/100 WBC (Bld) 1.3 % [facility] Erythrocyte distribution wid th Auto (RBC) [Ratio]Ordered By: Corbin Mckinney on 07-01-2021 Erythrocyte distribution width (RBC) [Ratio] 13.4 % 12.0-14.8 [facility] Estimated glomerular filtrat ion rate (GFR) non- AmericanOrdered By: Corbin Mckinney on 07-01-2021 GFR/1.73 sq M.predicted among non-blacks MDRD (S/P/Bld) [Vol rate/Area] > 60 mL/Min [facility] Globulin Calc (S) [Mass/Vol] Ordered By: Corbin Mckinney on 07-01-2021 Globulin (S) [Mass/Vol] 2.5 g/dL [facility] Hematocrit Auto (Bld) [Volum e fraction]Ordered By: Corbin Mckinney on 07-01-2021 Hematocrit (Bld) [Volume fraction] 42.1 % 38.8-50.0 [facility] Laboratory - Hematology and Cell countsOrdered By: Corbin Mckinney on 07-01-2021 Nucleated RBC/100 WBC (Bld) [Ratio] 0.1 % 0-0.5 [facility] Lipid Panelon 07-01-2021 Cholesterol [Mass/Vol] 198 mg/dL Normal 140-200 [facility] Comment on above: Result Comment: Chol less than 200 mg/dl low risk Chol 201-239 mg/dl borderline risk Chol 240 mg/dl and greater high risk Performed By: #### C MP, LIPID, [facility] CBC #### [facility] [address] Cholesterol in HDL [Mass/Vol] 50 mg/dL Normal 29-71 [facility] Comment on above: Result Comment: HDL CHOL ATP-III CLASSIFICATION Cardiovascular Risk HDL > or equal to 60 mg/dL LOW HDL < 40 mg/dL HIGH Performed By: #### C MP, LIPID, [facility] CBC #### [facility] [address] Cholesterol.total/Chol esterol in HDL [Mass ratio] 4.0 {ratio} Normal <5.0 [facility] Comment on above: Result Comment: PERF ORMED BY: [facility] [address] [place] [address] PATHOLOGIST SPINE SPECIALIST COLE MELENDEZ M.D. Performed By: #### C MP, LIPID, [facility] CBC #### [facility] [address] [place] [id number] [facility] LDL Cholesterol,Calculated 123 mg/dL High 0-100 [facility] Comment on above: Result Comment: LDL ATP III CLASSIFICATION LDL less than 100 mg/dL Optimal LDL 100-129 mg/dL Near or above optimal LDL 130-159 mg/dL Borderline high LDL 160-189 mg/dL High LDL greater than 189 mg/dL Very high Performed By: #### C MP, LIPID, [facility] CBC #### [facility] [address] Triglyceride w/Reflex 124 mg/dL Normal 35-149 [facility] Comment on above: Result Comment: TRIG ATP III CLASSIFICATION TRIG less than 150 mg/dL Normal TRIG 150-199 mg/dL Borderline high TRIG 200-500 mg/dL High TRIG greater than 500 mg/dL Very high Standard traceable to the Center for Disease Conrtrol and Prevention (CDC) test method. Performed By: #### C MP, LIPID, [facility] CBC #### [facility] [address] VLDL CHOLESTEROL 24 mg/dL Normal [facility] Comment on above: Performed By: #### C MP, LIPID, [facility] CBC #### [facility] [address] Lymphocytes Auto (Bld) [#/Vo l]Ordered By: Corbin Mckinney on 07-01-2021 Lymphocytes (Bld) [#/Vol] 1.3 10*3/uL 1.00-4.8 [facility] Lymphocytes/100 WBC Auto (Bl d)Ordered By: Corbin Mckinney on 07-01-2021 Lymphocytes/100 WBC (Bld) 26.8 % [facility] MCH Auto (RBC) [Entitic mass ]Ordered By: Corbin Mckinney on 07-01-2021 MCH (RBC) [Entitic mass] 32.4 pg 27.5-35.2 [facility] MCHC Auto (RBC) [Mass/Vol]Or dered By: Corbin Mckinney on 07-01-2021 MCHC (RBC) [Mass/Vol] 34.5 g/dL 32.5-35.6 [facility] MCV Auto (RBC) [Entitic vol] Ordered By: Corbin Mckinney on 07-01-2021 MCV (RBC) [Entitic vol] 93.8 fL 83.5-101 [facility] Monocytes Auto (Bld) [#/Vol] Ordered By: Corbin Mckinney on 07-01-2021 Monocytes (Bld) [#/Vol] 0.4 10*3/uL 0.0-0.8 [facility] Monocytes/100 WBC Auto (Bld) Ordered By: Corbin Mckinney on 07-01-2021 Monocytes/100 WBC (Bld) 7.7 % [facility] Neutrophils Auto (Bld) [#/Vo l]Ordered By: Corbin Mckinney on 07-01-2021 Neutrophils (Bld) [#/Vol] 3.0 10*3/uL 1.8-7.7 [facility] Neutrophils/100 WBC Auto (Bl d)Ordered By: Corbin Mckinney on 07-01-2021 Neutrophils/100 WBC (Bld) 63.7 % [facility] No Panel InformationOrdered By: Corbin Mckinney on 07-01-2021 Estimated GFR () > 60 mL/Min [facility] Comment on above: GFR estimated refere nce range: According to KDOQI guidelines, <60 ml/min/1.73m2 is sufficient to diagnose a patient with chronic kidney disease. Pharmacy Creatinine Clearance (Chem N/A [facility] Platelet mean volume Auto (B ld) [Entitic vol]Ordered By: Corbin Mckinney on 07-01-2021 Platelet mean volume (Bld) [Entitic vol] 7.9 fL 6.6-10.1 [facility] Platelets Auto (Bld) [#/Vol] Ordered By: Corbin Mckinney on 07-01-2021 Platelets (Bld) [#/Vol] 240 10*3/uL 150-450 [facility] Protein [Mass/volume] in Ser um or PlasmaOrdered By: Corbin Mckinney on 07-01-2021 Protein [Mass/Vol] 6.7 g/dL 6.1-7.9 [facility] RBC Auto (Bld) [#/Vol]Ordere d By: Corbin Mckinney on 07-01-2021 RBC (Bld) [#/Vol] 4.49 10*6/uL 3.90-5.60 [facility] Serum or plasma alanine fiore otransferase measurement without P-5'-P (enzymatic activiOrdered By: Corbin Mckinney on 07-01-2021 ALT No additional P-5'-P [Catalytic activity/Vol] 16 U/L 10-60 [facility] Serum or plasma albumin/glob ulin mass ratioOrdered By: Corbin Mckinney on 07-01-2021 Albumin/Globulin [Mass ratio] 1.7 {ratio} [facility] Serum or plasma alkaline crow sphatase measurement (enzymatic activity/volume)Ordered By: Corbin Mckinney on 07-01-2021 ALP [Catalytic activity/Vol] 49 U/L 32-92 [facility] Serum or plasma aspartate am inotransferase measurement (enzymatic activity/volume)Ordered By: Corbin Mckinney on 07-01-2021 AST [Catalytic activity/Vol] 21 U/L 10-42 [facility] Serum or plasma calcium carlos manuel urement (mass/volume)Ordered By: Corbin Mckinney on 07-01-2021 Calcium [Mass/Vol] 9.6 mg/dL 8.2-10.2 [facility] Serum or plasma chloride rafa surement (moles/volume)Ordered By: Corbin Mckinney on 07-01-2021 Chloride [Moles/Vol] 104 mmol/L 95-114 [facility] Serum or plasma glucose carlos manuel urement (mass/volume)Ordered By: Corbin Mckinney on 07-01-2021 Glucose [Mass/Vol] 111 mg/dL 70-100 [facility] Comment on above: ADA recommended refe rence rangeRandom Glucose Reference Range is dependent on time and content of last meal. Glucose of more than 200 mg/dL in a nonstressed, ambulatory subject supports the diagnosis of Diabetes Mellitus. Serum or plasma high density lipoprotein (HDL) cholesterol measurementOrdered By: Corbin Mckinney on 07-01-2021 Cholesterol in HDL [Mass/Vol] 50 mg/dL 29-71 [facility] Comment on above: HDL CHOL ATP-III CLA SSIFICATION Cardiovascular RiskHDL > or equal to 60 mg/dL LOWHDL < 40 mg/dL HIGH Serum or plasma potassium me asurement (moles/volume)Ordered By: Corbin Mckinney on 07-01-2021 Potassium [Moles/Vol] 4.4 mmol/L 3.5-5.1 [facility] Serum or plasma sodium measu rement (moles/volume)Ordered By: Corbin Mckinney on 07-01-2021 Sodium [Moles/Vol] 138 mmol/L 136-146 [facility] Serum or plasma total biliru bin measurement (mass/volume)Ordered By: Corbin Mckinney on 07-01-2021 Bilirubin [Mass/Vol] 0.7 mg/dL 0.3-1.2 [facility] Serum or plasma total carbon dioxide measurement (moles/volume)Ordered By: Corbin Mckinney on 07-01-2021 CO2 [Moles/Vol] 23.7 mmol/L 22.0-30.0 [facility] Serum or plasma total choles terol/high density lipoprotein (HDL) cholesterol mass ratOrdered By: Corbin Mckinney on 07-01-2021 Cholesterol.total/Chol esterol in HDL [Mass ratio] 4.0 {ratio} [facility] Serum or plasma urea nitroge n measurement (mass/volume)Ordered By: Corbin Mckinney on 07-01-2021 Urea nitrogen [Mass/Vol] 19 mg/dL 9-23 [facility] Triglyceride [Mass/volume] i n Serum or PlasmaOrdered By: Corbin Mckinney on 07-01-2021 Triglyceride [Mass/Vol] 124 mg/dL 35-149 [facility] Comment on above: TRIG ATP III CLASSIF ICATIONTRIG less than 150 mg/dL NormalTRIG 150-199 mg/dL Borderline highTRIG 200-500 mg/dL High TRIG greater than 500 mg/dL Very highStandard traceable to the Center for Disease Conrtrol and Prevention (CDC) test method. XR chest 2V*on 07-01-2021 XR chest 2V* [facility] [address] XRay Report Signed Patient: Froylan Hardy MR#: [id number] : 1955 Acct:[id number] Age/Sex: 66 / M ADM Date: 07/01/21 Loc: [place] Room: Type: REG REF Attending Dr: Corbin Mckinney Jr, DO Ordering Provider: Corbin Mckinney DO Date of Service: 07/01/21 XR/XR chest 2V*: ANNUAL EMPLOYMENT PHYSICAL Copies to: Corbin Mckinney,DO PA AND LATERAL CHEST: CLINICAL HISTORY: Employment physical COMPARISON: 10/30/2019 There is no focal parenchymal consolidation, effusion or pneumothorax. The cardiac, hilar and mediastinal silhouettes are within normal limits. There is no vascular congestion. The visualized bony thorax is intact. There is mild endplate spurring. XR/XR chest 2V* IMPRESSION: NO ACUTE CARDIOPULMONARY ABNORMALITY. Impression dictated by: Zeinab Reyes M.D.07/01/2021 10:06 AM Dictation Location: RADIO-PC-13 Transcribed By: JULISA 07/01/21 1006 Dictated By: Zeinab Reyes MD 07/01/21 1005 Signed By: 07/01/21 1006 [facility] Vital Signs Date Time Vital Sign Value Performing Clinician Facility 12-22-2023 15:10-0400 Blood Pressure Location Holly Sarmini [facility] 12-22-2023 15:10-0400 Diastolic blood pressure 85 mm[Hg] Holly Sarmini [facility] 12-22-2023 15:10-0400 Heart rate 75 /min Holly Sarmini [facility] 12-22-2023 15:10-0400 Mean blood pressure 105 mm[Hg] Holly Sarmini [facility] 12-22-2023 15:10-0400 Respiratory rate 16 /min Holly Sarmini [facility] 12-22-2023 15:10-0400 SaO2% (BldA) [Mass fraction] 97 % Holly Sarmini [facility] 12-22-2023 15:10-0400 Systolic blood pressure 144 mm[Hg] Holly Sarmini [facility] 12-22-2023 14:55-0400 Blood Pressure Location Holly Sarmini [facility] 12-22-2023 14:55-0400 Diastolic blood pressure 101 mm[Hg] Holly Sarmini [facility] 12-22-2023 14:55-0400 Heart rate 82 /min Holly Sarmini [facility] 12-22-2023 14:55-0400 Mean blood pressure 108 mm[Hg] Holly Sarmini [facility] 12-22-2023 14:55-0400 Respiratory rate 16 /min Holly Sarmini [facility] 12-22-2023 14:55-0400 SaO2% (BldA) [Mass fraction] 94 % Holly Sarmini [facility] 12-22-2023 14:55-0400 Systolic blood pressure 122 mm[Hg] Holly Sarmini [facility] 12-22-2023 14:40-0400 Blood Pressure Location Holly Sarmini [facility] 12-22-2023 14:40-0400 Diastolic blood pressure 82 mm[Hg] Holly Sarmini [facility] 12-22-2023 14:40-0400 Heart rate 82 /min Holly Sarmini [facility] 12-22-2023 14:40-0400 Mean blood pressure 95 mm[Hg] Holly Sarmini [facility] 12-22-2023 14:40-0400 Respiratory rate 19 /min Holly Sarmini [facility] 12-22-2023 14:40-0400 SaO2% (BldA) [Mass fraction] 93 % Holly Sarmini [facility] 12-22-2023 14:40-0400 Systolic blood pressure 120 mm[Hg] Holly Sarmini [facility] 12-22-2023 14:35-0400 Respiratory rate 16 /min Holly Sarmini [facility] 12-22-2023 14:30-0400 Respiratory rate 21 /min Holly Sarmini [facility] 12-22-2023 14:26-0400 Body temperature 97.88 [degF] Holly Sarmini [facility] 12-22-2023 14:20-0400 Respiratory rate 24 /min Holly Sarmini [facility] 12-22-2023 13:29-0400 Body temperature 97.7 [degF] Holly Sarmini [facility] 12-16-2023 12:36-0400 Diastolic blood pressure 73 mm[Hg] Holly Sarmini [facility] 12-16-2023 12:36-0400 Heart rate 89 /min Holly Sarmini [facility] 12-16-2023 12:36-0400 Systolic blood pressure 126 mm[Hg] Holly Sarmini [facility] 12-16-2023 12:32-0400 Blood Pressure Location Holly Sarmini [facility] 12-16-2023 12:32-0400 Respiratory rate 16 /min Holly Rafmini [facility] Encounters Encounter Date Encounter Type Care Provider Facility Start: 12-22-2023 End: 12-22-2023 ambulatory Holly Talal Rafmini Facility:[facility] Start: 12-22-2023 End: 12-22-2023 Patient encounter procedure Holly Talal Rafmini [facility] Start: 12-16-2023 End: 12-16-2023 ambulatory Holly Talal Rafmini Facility:[facility] Start: 12-16-2023 End: 12-16-2023 Patient encounter procedure Holly Talal Sarmini [facility] Start: 12-02-2023 ambulatory Holly Rafmini Facili ty:[facility] Start: 07-01-2021 End: 07-01-2021 Departed Referred DO Corbin Mckinney Jr Work Phone: [facility] [address] Start: 03-17-2021 End: 03-18-[address] NONE LISTED REQUEST Facility:[facility]1 Start: 06-25-2020 End: 06-26-[address] NONE LISTED REQUEST Facility: Start: 06-03-2020 End: 06-04-[address] NONE LISTED REQUEST Facility: Start: 05-31-2017 Ambulatory PAULETTE CRAIN Facility:[id number] Start: 05-31-2017 Ambulatory Facility:[id number] Procedures Date Procedure Procedure Detail Performing Clinician Start: 12-22-2023 Colonoscopy Holly S carleyini Start: 07-01-2021 Plain chest X-ray DO Jonel Mckinney Jr Work Phone: Start: 03-17-[address] GIVENS L ISTED REQUEST Comment on above: Performed By: #### D ATPSA #### [facility] [address] [address] [address] Shelli Sood Start: 02-07-2016 right inguinal herni a repair Elayne Zepeda hernia repair as child 1 Rosita Zepeda Comment on above: unknown side History of right hip replacement Elayne Zepeda left ring finger ten don repair Elayne Zepeda right ankle fx Elayne Jacobs ini Payers Date Payer Category Payer Medicare [id number] 2019 Private Health Insurance [id number] 1957 Self-pay [id number] 1955 Unknown [id number] 1955 Unknown [id number] [id number] [id number] 1955 Unknown [id number] 2.16.8 [id number] Unknown FROYLAN HARDY Unknown [id number] 2.16.84 [id number] Unknown [id number] 2.16.84 [id number] Unknown [id number] [id number] [id number] Social History Date Type Detail [facility] Work Phone: Start: 1955 Sex Assigned At Male [facility] Start: 12-16-2023 Tobacco smoking status Never s moked tobacco (finding) [facility] Tobacco smoking status Never Heribert[facility] Sex Assigned At Male [facility] Functional Status Date Assessment Result Facility 12-22-2023 Functional Status N/A Vivek Bradley [facility] 12-16-2023 Functional Status N/A DoyleJony [facility] Clinical Notes 12-22-2023 Note Date & Type Note Facility 12-22-2023 Hospital Discharg e instructions Patient Education 12/22/2023 15:03:38 Colon Polyps Colon Polyps Colon polyps are tissue growths [...] you more likely to develop this condition: Having a family history of colorectal cancer or colon polyps. Being older than 45 years of age. Being younger than 45 years of age and having a significant family history of colorectal cancer or colon polyps or a genetic condition that puts you at higher risk of getting colon polyps. Having inflammatory bowel disease, such as ulcerative colitis or Crohn's disease. Having certain conditions passed from parent to child (hereditary conditions), such as: ?Familial adenomatous polyposis (FAP). ?Cedillo syndrome. ?Turcot syndrome. ?Peutz Jeghers syndrome. ?MUTYH-associated polyposis (MAP). Being overweight. Certain lifestyle factors. These include smoking cigarettes, drinking too much alcohol, not getting enough exercise, and eating a diet that is high in fat and red meat and low in fiber. Having had childhood cancer that was treated with radiation of the abdomen. What are the signs or symptoms? Many times, there are no symptoms. If you have symptoms, they may include: Blood coming from the rectum during a bowel movement. Blood in the stool (feces). The blood may be bright red or very dark in color. Pain in the abdomen. A change in bowel habits, such as [...] these instructions at home: Eating and drinking Eat foods that are high in fiber, such as fruits, vegetables, and whole grains. Eat foods that are high in calcium and vitamin D, such as milk, cheese, yogurt, eggs, liver, fish, and broccoli. Limit foods that are high in fat, such as fried foods and desserts. Limit the amount of red meat, precooked or cured meat, or other processed meat that you eat, such as hot dogs, sausages, harmon, or meat loaves. Limit sugary drinks. Lifestyle Maintain a healthy weight, or lose weight if recommended by your health care provider. Exercise every day or as told by your health care provider. Do not use any products that contain nicotine or tobacco, such as cigarettes, e-cigarettes, and chewing tobacco. If you need help quitting, ask your health care provider. Do not drink alcohol if: ?Your health care provider tells you not to drink. ?You are , may be , or are planning to become . If you drink alcohol: ?Limit how much you use to: ?0 1 drink a day for women. ?0 2 drinks a day for men. ?Know how much alcohol is in your drink. In the [place] one drink equals one 12 oz bottle of beer (355 mL), one 5 oz glass of wine (148 mL), or one 1 oz glass of hard liquor (44 mL). General instructions Take bdth-uyp-rjggqeh and prescription medicines only as told by your health care provider. Keep all follow-up visits. This is important. This includes having regularly scheduled colonoscopies. Talk to your health care provider about when you need a colonoscopy. Contact a health care provider if: You have new or worsening bleeding during a bowel movement. You have new or increased blood in your stool. You have a change in bowel habits. You lose weight for no known reason. Summary Colon polyps are tissue growths inside the colon, which is part of the large intestine. They are one type of polyp that can grow in the body. Most colon polyps are noncancerous (benign), but some can become cancerous over time. This condition is diagnosed with a colonoscopy. This condition is treated by removing any polyps that are found. Most polyps can be removed during a colonoscopy. This information is not intended to replace advice given to you by your health care provider. Make sure you discuss any questions you have with your health care provider. Document Revised: 06/26/2020 Document Reviewed: 06/26/2020 [employer] Patient Education 2023 [employer] 12/22/2023 15:03:35 Colonoscopy, Care After Surgery Salam (CUSTOM) Colonoscopy Care After Surgery Please read the [...] severe or gets worse throughout the day. 12/22/2023 15:03:27 Diverticulosis Diverticulosis Diverticulosis is when small pouches called [...] more likely to get this condition if: You are older than 60 years of age. You do not eat enough fiber or you get constipated a lot. You are overweight. You do not get enough exercise. You smoke. You take tgvh-ezq-azuqkxr pain medicines. You have a family history of the condition. What are the signs or symptoms? In most people, there are no symptoms. If you do have symptoms, they may include: Bloating. Stomach cramps. Constipation or diarrhea. Pain in the lower left side of your abdomen. How is this diagnosed? This condition is often diagnosed during an exam for other colon problems. It may be diagnosed when you have: A colonoscopy. This is when a tube with a camera on the end is used to look at your colon. A barium enema. This is an X-ray exam that uses dye to look at your colon. A CT scan. How is this treated? You may not need treatment. Your health care provider will tell you what you can do at home to help prevent problems. You may need treatment if you have symptoms or if you have had diverticulitis before. You may be told to: Eat a high-fiber diet. Take medicine to relax your colon. Lose weight. Follow these instructions at home: Medicines Take atbv-xzc-wruyaqs and prescription medicines only as told by your provider. If told, take a fiber supplement or probiotic. Managing constipation Your condition may cause constipation. To prevent or treat constipation, you may need to: Drink enough fluid to keep your pee (urine) pale yellow. Take zzfh-bue-eoqvxpl or prescription medicines. Eat foods that are high in fiber, such as beans, whole grains, and fresh fruits and vegetables. Limit foods that are high in fat and processed sugars, such as fried or sweet foods. Try not to strain when you poop. Contact a health care provider if: Your symptoms get worse all of a sudden. You have pain in your abdomen that gets worse. You have bloating or stomach cramps. You continue to have frequent constipation. You have a fever or chills. You vomit. Your poop is bloody, black, or tarry. This information is not intended to replace advice given to you by your health care provider. Make sure you discuss any questions you have with your health care provider. Document Revised: 12/03/2022 Document Reviewed: 12/03/2022 [employer] Patient Education 2023 [employer] 12/22/2023 15:03:20 Hemorrhoids, Uznf-qz-Wvkg Hemorrhoids Hemorrhoids are swollen veins that may form: In the butt (rectum). These are called internal hemorrhoids. Around the opening of the butt (anus). These are called external hemorrhoids. Most hemorrhoids do not cause very bad problems. They often get better with changes to your lifestyle and what you eat. What are the causes? Having trouble pooping (constipation) or watery poop (diarrhea). Pushing too hard when you poop. . Being very overweight (obese). Sitting for too long. Riding a bike for a long time. Heavy lifting or other things that take a lot of effort. Anal sex. What are the signs or symptoms? Pain. Itching or soreness in the butt. Bleeding from the butt. Leaking poop. Swelling. One or more lumps around the opening of your butt. How is this treated? In most cases, hemorrhoids can be treated at home. You may be told to: Change what you eat. Make changes to your lifestyle. If these treatments do not help, you may need to have a procedure done. Your doctor may need to: Place rubber bands at the bottom of the hemorrhoids to make them fall off. Put medicine into the hemorrhoids to shrink them. Shine a type of light on the hemorrhoids to cause them to fall off. Do surgery to get rid of the hemorrhoids. Follow these instructions at home: Medicines Take gygp-rsi-ukpiavt and prescription medicines only as told by your doctor. Use creams with medicine in them or medicines that you put in your butt as told by your doctor. Eating and drinking Eat foods that have a lot of fiber in them. These include whole grains, beans, nuts, fruits, and vegetables. Ask your doctor about taking products that have fiber added to them (fibersupplements). Take in less fat. You can do this by: ?Eating low-fat dairy products. ?Eating less red meat. ?Staying away from processed foods. Drink enough fluid to keep your pee (urine) pale yellow. Managing pain and swelling Take a warm-water bath (sitz bath) for 20 minutes to ease pain. Do this 3 4 times a day. You may do this in a bathtub. You may also use a portable sitz bath that fits over the toilet. If told, put ice on the painful area. It may help to use ice between your warm baths. ?Put ice in a plastic bag. ?Place a towel between your skin and the bag. ?Leave the ice on for 20 minutes, 2 3 times a day. If your skin turns bright red, take off the ice right away to prevent skin damage. The risk of damage is higher if you cannot feel pain, heat, or cold. General instructions Exercise. Ask your doctor how much and what kind of exercise is best for you. Go to the bathroom when you need to poop. Do not wait. Try not to push too hard when you poop. Keep your butt dry and clean. Use wet toilet paper or moist towelettes after you poop. Do not sit on the toilet for a long time. Contact a doctor if: You have pain and swelling that do not get better with treatment. You have trouble pooping. You cannot poop. You have pain or swelling outside the area of the hemorrhoids. Get help right away if: You have bleeding from the butt that will not stop. This information is not intended to replace advice given to you by your health care provider. Make sure you discuss any questions you have with your health care provider. Document Revised: 11/18/2022 Document Reviewed: 11/18/2022 [employer] Patient Education 2023 [employer] Follow Up Care 12/16/2023 13:40:15 With:Duane HARRIS, ANUJA Taylor, [facility] Address: [address] [place] [address], [address] [phone] [phone] When: Unknown Comments:Office will call to schedule follow up appointment and/or review any pending biopsy resultsCall for any problems. [facility] 12-22-2023 Note Progress Note-Levy nagy Patient: FROYLAN HARDY Age: 68 years Sex: [...] family history is negative. Procedure history: Colonoscopy ([id number]) on 12/22/2023 at 68 Years. right inguinal hernia repair on 02/07/2016 at 60 Years. History of right hip replacement ([id number]). right ankle fx. left ring finger tendon [...] 84 mmHg mmHg (more content not included)... [facility] Comment on above: Result Comment: Elec tronically Signed By: Carlitos Louis MD\.br\Date and Time Signed: 12/22/23 16:16 EDT 12-22-2023 Note Progress Note-Physic lilo Patient: FROYLAN HARDY Age: 68 years Sex: Male : 1955 Associated Diagnoses: None Author: Carlitos Louis MD Postoperative Information Postoperative disposition: Postoperative disposition: To PACU. Optimetrix number: Optimetrix number [id number]. Anesthetic utilized: General. Health Status Allergies: Allergic [...] when meets criteria ( To home ). [facility] Comment on above: Result Comment: Harvey garcia Signed By: Heriberto HARRIS, Carlitos Tse\.br\Date and Time Signed: 12/22/23 16:10 EDT 12-22-2023 Note Patient Education - Text Colonoscopy [...] exercise. ? You smoke. ? You take wtmv-gdd-jmqfzvk pain medicines. ? You have a family [...] these instructions at home: Medicines ? Take ijqv-bes-vtuhphw and prescription medicines only as told by your provider. ? If told, take a fiber supplement or probiotic. Managing constipation Your condition may cause constipation. To prevent or treat constipation, you may need to: ? Drink enough fluid to keep your pee (urine) pale yellow. ? Take bbdp-bol-ovbxznp or prescription medicines. ? Eat foods that [...] provider. Document Orly (more content not included)... [facility] 12-22-2023 Note Endoscopic Procedure Report - Other [...] 60 Years. History of right hip replacement ([id number]). right ankle fx. left ring finger tendon repair. hernia repair as child. Comments: 01/31/2016 8:20 Aviva Wu RN unknown side. Past Medical History No active or resolved past medical history items have been selected or recorded.. reviewed. Family History Entire family history is negative.. reviewed. Procedure History right inguinal hernia repair on 02/07/2016 at 60 Years. History of right hip replacement ([id number]). right ankle fx. left ring finger tendon repair. hernia repair as child. Comments: 01/31/2016 8:20 Aviva Wu RN unknown side. Colorectal neoplasm risk assessment Average [...] Normal examined terminal ileum Images Procedure images: Rec_hd_video___32_ 35_[id number].jpg Rec_hd_video__32_ 24_849.jpg Rec1_hd_video__31_ 02_595.jpg Rec1_hd_video__30_ 25_257.jpg Rec1_hd_video__30_ 11_415.jpg Rec1_hd_video__29_ 58_249.jpg Rec1_hd_video__28_ 47_991.jpg Rec1_hd_video_2023__3_28_ 37_661.jpg Rec1_hd_video_2023__3_26_ 44_572.jpg Rec1_hd_video_2023__3_25_ 24_316.jpg Rec1_hd_video_2023__T13_23_ 01_815.jpg Rec1_hd_video_2023__T13_20_ 13_217.jpg Rec1_hd_video_2023___19_ [id number].jpg Rec1_hd_video_2023__3_17_ 58_[id number].jpg Rec1_hd_video_2023__3_17_ 47_832.jpg Rec1_hd_video_2023__3_17_ 29_315.jpg Rec1_hd_video_2023__3_17_ 24_069.jpg . Post-Procedure Complications: none. Estimated blood loss: [...] medications, Avoid NSAIDs. (more content not included)... [facility] Comment on above: Result Comment: Elec tronically Signed By: Elayne Zepeda MD\.br\Date and Time Signed: 12/22/23 14:27 EDT Other Comment: Noreen schulte Attachment - attachment storage system not supported [id number] Can be viewed in source system Missing Attachment - attachment storage system not supported [id number] Can be viewed in source system Missing Attachment - attachment storage system not supported [id number] Can be viewed in source system Missing Attachment - attachment storage system not supported [id number] Can be viewed in source system Missing Attachment - attachment storage system not supported [id number] Can be viewed in source system Missing Attachment - attachment storage system not supported [id number] Can be viewed in source system Missing Attachment - attachment storage system not supported [id number] Can be viewed in source system Missing Attachment - attachment storage system not supported [id number] Can be viewed in source system Missing Attachment - attachment storage system not supported [id number] Can be viewed in source system Missing Attachment - attachment storage system not supported [id number] Can be viewed in source system Missing Attachment - attachment storage system not supported [id number] Can be viewed in source system Missing Attachment - attachment storage system not supported [id number] Can be viewed in source system Missing Attachment - attachment storage system not supported [id number] Can be viewed in source system Missing Attachment - attachment storage system not supported [id number] Can be viewed in source system Missing Attachment - attachment storage system not supported [id number] Can be viewed in source system Missing Attachment - attachment storage system not supported [id number] Can be viewed in source system Missing Attachment - attachment storage system not supported [id number] Can be viewed in source system 12-22-2023 Evaluation + Plan note Extrac nancy from: Title:ANES Pre-operative Note 2022 Author:Carlitos Jones Date:12/22/23 Plan [place] [employer] (ASA) physical status classification: Class I. Anesthetic Preoperative Plan: Anesthesia General. Extracted from: Title:ANES Post-operative Note---General Author: Carlitos Louis MD Date:12/22/23 Plan Transfer/Discharge: Transfer/Discharge Discharge when meets criteria ( To home ). Extracted from: Title:1Preop H&P Author:Elayne Zepeda MD Date:12/22/23 Impression and Plan Impression: screening colon cancer Plan: - Colonoscopy [facility] 10-02-2024 NoteHistory and Physical Patient: FROYLAN HARDY Age: 68 [...] 60 Years. History of right hip replacement ([id number]). right ankle fx. left ring finger tendon [...] (DEC 21:) Weight 78.2 kg (DEC 21 13:17) BMI 25.48 (DEC 21 13:) General: in Nad Abdomen: Soft, NTND Impression and Plan Impression: screening colon cancer [facility]Result Comment: Electronically Signed By: Duane HARRIS, Elayne Mejias\.haris\Date and Time Signed: 12/22/23 13:57 EDTEvaluation + Plan note Future Appointments Appointment Date:12/22/2023 02:00:00 PM Scheduled Provider: Location:[facility] Appointment Type:Surgery [facility] Evaluation noteNo assessment information available [facility] Work Phone: Hospital course Narrative No data available for this section [facility] Hospital Discharge instructions No data available for this section [facility] Progress note No data available for this section [facility] Summary Purpose Family History No Family History Records FoundNo Family History Records FoundNo Family History Records FoundNo Family History Records Found No data available for this section No Family History Records Found No data available for this section No Family History Records FoundNo Family History Records Found Advance Directives No [...] section and content) DATE CREATED AUTHOR 09/10/2017 [facility] DATE CREATED AUTHOR AUTHOR'S ORGANIZ ATION 09/10/2017 [facility] DATE CREATED AUTHOR AUTHOR'S ORGANIZ ATION 03/18/2021 [facility] DATE CREATED AUTHOR AUTHOR'S ORGANIZ ATION 07/02/2021 [facility] DATE CREATED AUTHOR AUTHOR'S ORGANIZ ATION 12/24/2023 [facility] DATE CREATED AUTHOR AUTHOR'S ORGANIZ ATION 12/28/2023 [facility] DATE CREATED AUTHOR AUTHOR'S RENETTA ATION 12/29/2023 Vivek Maier [facility] Teams (unrecognized sec tion and content) Team Status: Inactive Member Role Status Dates Corbin Mckinney Jr, DO Attending Provider Active Goals (unrecognized section and content) Goals may be documented in a n alternate section No data available for this section No data available for this section [...] BE BASED ON THE PRIMARY CLINICAL RECORDS. [facility]. provides no warranty or guarantee of the accuracy or completeness of information in this document.
--- NOTE | 2023-12-31 08:04 | ECG_ITS ---
[facility] Test Date: 2023-12-31 Pat Name: VANESSA KEY Department: Room: - Gender: Male Monitoring And Evaluation Advisor: : [id number] Requested By: Ramiro Villalpando Order Number: [id number] Reading MD: ARIELLE TERRELL Measurements Intervals [place] Rate: 54 P: 20 [place]: 194 QRS: -2 QRSD: 91 T: 42 QT: 440 QTc: 419 Interpretive Statements SINUS BRADYCARDIA No previous ECG available for comparison Electronically Signed On 12-31-2023 18:32:08 EDT by ARIELLE TERRELL
== END 2023-12-31 07:56 | disposition home or self-care (01) ==
LOC: PST 07:55
PROVIDERS: PCP Internal Medicine; Visit Provider Orthopaedic Surgery
DX: Z01.810 Encounter for preprocedural cardiovascular examination (principal); M75.122 Complete rotator cuff tear or rupture of left shoulder, not specified as traumatic
CPT/HCPCS: 93005

== ENCOUNTER 2024-01-10 11:20 | Day surgery (SDC) | payer OTHER, SELFPAY ==
[2023-12-31 08:44] VITALS: BP 131/86; PULSE 73; TEMP 36.4; O2SAT 98; BMI 24.9
[2024-01-10] VITALS (11 sets, daily range): BP systolic 127–167; BP diastolic 82–97; PULSE 75–100; TEMP 36.1–36.4; O2SAT 92–99; BMI 24.8
--- OUTSIDE RECORDS SUMMARY | 2024-01-10 11:24 | XMS_ITS | CCD ---
Author Organization [facility] Care Team Providers Care Filling Mixer Name Role Phone PAULETTE CRAIN Unavailable Unavailable [...] ble DO Corbin Mckinney Jr Attending Provider [phone] RICHARD RAHMAN Primary Care Physician [phone] Elayne Zepeda Admitting Unavaila ble Elayne Zepeda Attending Unavaila ble Elayne Zepeda Referring Unavaila ble RafminElayne lacy Attending Unavaila ble SarminElayne lacy Attending Unavaila ble Medications Current Medications Medication Drug Class(es) Dates Sig (Normalized) Sig (Original) {1 (Ascorbic Acid 7540 MG / POLYETHYLENE GLYCOL 3350 66322 MG / Potassium Chloride 1200 MG / Sodium Ascorbate 47461 MG / Sodium Chloride 3200 MG Powder for Oral Solution) / 1 (POLYETHYLENE GLYCOL 3350 911289 MG / Potassium Chloride 1000 MG / [...] conditions (not mental disorders or infectious disease) (6 sources) Screening for malignant neoplasm of colon [...] Test Name Value Interpretation Reference Range Facility Reminderson 12-30-2023 Reminders Reminders From: Elmer Powers To: [facility] - Reminders/Recalls; Sent: 12/30/2023 16:11:25 EDT Show up: 11/20/2030 16:11:00 EDT Subject: Ambulatory Reminder Due Date/Time: 12/21/2030 16:11:00 EDT Reminder/Recall Repeat colonoscopy in 7 years(2030) - serrated adenoma Normal [facility] Surgical Pathology Reporton 12-27-2023 Surgical [place] [address]- Surgical Pathology Report Collected Date/Time: 12/22/2023 14:14 EDT Pathologist: Barrie HARRIS PhD, Shelli Rizo Date/Time: 12/23/2023 08:42 EDT Duane HARRIS, Elayne [...] sigmoid colon polyps are multiple fragments of mares tissue ranging from less than 0.1 cm [...] is entirely submitted in one cassette. (DC) DC:[facility] Microscopic Description Microscopic examination performed unless gross only specified. Normal [facility] Comment on above: Performed By: #### [id number] #### [facility] [address] [place] [address] Main OR Intraoperative Recor don 12-23-2023 Main OR Intraoperative Record Main OR Intraoperative Record IntraOp Document Type FT Summary Primary Physician: Elayne Zepeda MD Finalized Date/Time: 12/23/23 10:58:27 Pt. Name: FROYLAN HARDY/Sex: 1955 Male Med Rec #: [id number] Physician: Elayne Zepeda MD Financial #: [id number] Pt. Type: O Room/Bed: / Admit/Disch: 12/22/23 [...] Pittman RN, Lisa Mohan Role Performed Anesthesiologist Information [employer] - Primary Scrub - Primary Information Technology Internship Time In 12/22/23 14:00:00 12/22/23 14:00:00 12/22/23 14:00:00 Time Out 12/22/23 14:18:00 12/22/23 14:25:00 12/22/23 14:25:00 Procedure COLONOSCOPY(.) COLONOSCOPY(.) COLONOSCOPY(.) Comments Dr. Louis supervising case Last Modified By: Zain LOMBARDO, Ish Pittman RN, Ish Pittman RN, Ish Madrigal 12/22/23 14:25:57 12/22/23 14:25:57 12/22/23 14:25:57 Entry 4 Entry 5 Case Attendee Duane HARRIS, Elayne Murray DNP, BOTTOM CRANE OPERATOR, [facility] Lizeth Role Performed Surgeon - Primary BOTTOM CRANE OPERATOR Time In 12/22/23 14:00:00 12/22/23 14:17:00 Time Out 12/22/23 14:25:00 12/22/23 14:25:00 Procedure COLONOSCOPY(.) COLONOSCOPY(.) Comments Last Modified By: Zain LOMBARDO, Ish Pittman RN, Ish Madrigal 12/22/23 14:25:57 12/22/23 14:25:57 Perioperative Protocols FT [...] of p (more content not included)... Normal [facility] Discharge Instructionson Discharge Instructions Discharge Instruc [...] Follow Up with Duane HARRIS, Elayne Mejias, [facility], [facility] When: Comments: Office will call to schedule follow up appointment and/or review any pending biopsy results Call for any problems. Where: Roberto Luz, [address] [phone] Allergies No Known Allergies Education Materials Colon [...] recommended by your (more content not included)... [facility] Comment on above: Result Comment: Elec tronically Signed By: Ricardo LOMBARDO, Binta\.br\Date and Time Signed: 12/22/23 15:07 EDT Inpatient Patient Summaryon 12-22-2023 Inpatient Patient Summary Inpatient Patient Summary [place] [id number] [facility] Clinical Discharge Instructions PERSON INFORMATION Name: FROYLAN HARDY PHYSICIANS Admitting Physician: Elayne Zepeda MD Attending Physician: Elayne Zepeda MD PCP: RICHARD RAHMAN DO Diagnosis: Colon cancer screening Comment: PATIENT EDUCATION INFORMATION Instructions: Medication Leaflets: Follow up: MEDICATION LIST Comment: [facility] Main OR PACU II Recordon Main OR PACU II Record Main OR PACU II R ecord PACU Phase II Document Type FT Summary Primary Physician: Elayne Zepeda MD Finalized Date/Time: 12/22/23 15:35:35 Pt. Name: FROYLAN HARDY/Sex: 1955 Male Med Rec #: [id number] Physician: Elayne Zepeda MD Financial #: [id number] Pt. Type: O Room/Bed: / Admit/Disch: 12/22/23 [...] By: Binta Silva RN 12/22/23 15:35 Normal [facility] Main OR Preoperative Recordo n 12-22-2023 Main OR Preoperative Record Main OR Preoperative Record Holding Area Document Type FT Summary Primary Physician: Elayne Zepeda MD Finalized Date/Time: 12/22/23 13:17:19 Pt. Name: FROYLAN HARDY/Sex: 1955 Male Med Rec #: [id number] Physician: Elayne Zepeda MD Financial #: [id number] Pt. Type: O Room/Bed: / Admit/Disch: 12/22/23 [...] By: Jana [facility] RN 12/22/23 13:17 Normal [facility] Outpatient Surgery Discharge Instructionon 12-22-2023 Outpatient Surgery Discharge Instruction Outpatient Surgery Discharge Instruction [place] [id number] Patient Discharge Instructions PERSON INFORMATION Name: FROYLAN [...] THE NEAREST EMERGENCY ROOM OR CALL 911 SHAHID Lacy DANIEL G, have received the attached patient education materials/instructions and have verbalized understanding: May we do a follow up call? Yes No I was present when discharge instructions were given Patient Signature Date Clinican/Nurse Signature ___ Date Follow up: Pharmacy Information: You may receive a survey from [employer] asking you to rate your care experience. Your feedback is important and will help us understand what we do well and how we can improve the quality of care we provide to you, your loved ones and our community. It?s an honor to serve you. Thank you for choosing [facility] HERE ARE THE MEDICATION CHANGES THAT OCCURRED DURING YOUR HOSPITAL STAY PATIENT EDUCATION INFORMATION Instructions: Medication Leaflets: Normal [facility] Ambulatory Visit Summaryon 0 12-16-2023 Ambulatory Visit Summary Ambulatory Visit Summary FROYLAN HARDY :1955 Visit Date:12/16/2023 Ambulatory Visit Instructions Your Diagnosis Screen for colon cancer Your Care Team Attending Physician - Duane HARRIS, Elayne Mejias Primary Care Physician - RICHARD RAHMAN DO This Is Your Medications List polyethylene [...] Screen for colon cancer Oral Pickup at [facility]/pharmacy #[id number] Pharmacy Information [facility]/pharmacy #[id number]: [address], [place] [id number] [phone] Allergies No Known Allergies Patient Survey You may receive a survey via text or e-mail asking about your office visit. Please share your experience with us by completing your survey. We appreciate your feedback and thank you for choosing us for your care. Normal [facility] Gastroenterology Office/Clin ic Noteon 12-16-2023 Gastroenterology Office/Clinic Note Gastroenterology Office/Clinic Note Chief Complaint screening HPI Staff This is a 68 year old male who presents today for a screening colonoscopy. Denies Blood Thinners. Denies GLP-1 Agonists. Denies any family history of colon cancer/polyps or IBD. Denies Dysphagia, abdominal pain, constipation, diarrhea or bloody stools. previous EGD/Colonoscopy- 10 years [facility]. Denies recent imaging or labs. [...] E&M of New Patient Low 30-44 Min [id number] E&M of New Patient Moderate 45-59 Min [id number] Follow-up No qualifying data available Problem List/Past [...] Family History Family history is negative Normal [facility] Comment on above: Result Comment: Elec tronically Signed By: Duane HARRIS, Elayne Mejias\.br\Date and Time Signed: 12/16/23 13:17 EDT Basophils Auto (Bld) [#/Vol] Ordered By: Corbin Mckinney on 07-01-2021 Basophils (Bld) [#/Vol] 0.0 10*3/uL 0.0-0.2 [facility] Basophils/100 WBC Auto (Bld) Ordered By: Corbin Mckinney on 07-01-2021 Basophils/100 WBC (Bld) 0.5 % [facility] Blood hemoglobin measurement (mass/volume)Ordered By: Corbin Mckinney on 07-01-2021 Hemoglobin (Bld) [Mass/Vol] 14.5 g/dL 13.0-17.0 [facility] Blood leukocytes automated c ount (number/volume)Ordered By: Corbin Mckinney on 07-01-2021 WBC (Bld) [#/Vol] 4.8 10*3/uL 4.5-11.0 [facility] Body fluid albumin measureme nt (mass/volume)Ordered By: Corbin Mckinney on 07-01-2021 Albumin (Body fld) [Mass/Vol] 4.2 g/dL 3.2-5.5 [facility] Cholesterol [Mass/volume] in Serum or PlasmaOrdered By: Corbin Mckinney on 07-01-2021 Cholesterol [Mass/Vol] 198 mg/dL 140-200 [facility] Comment on above: Chol less than 200 m g/dl low riskChol 201-239 mg/dl borderline riskChol 240 mg/dl and greater high risk Cholesterol in LDL Calc [Mas s/Vol]Ordered By: Corbin Mckinney on 07-01-2021 Cholesterol in LDL [Mass/Vol] 123 mg/dL 0-100 [facility] Comment on above: LDL ATP III CLASSIFI CATIONLDL less than 100 mg/dL OptimalLDL 100-129 mg/dL Near or above optimalLDL 130-159 mg/dL Borderline highLDL 160-189 mg/dL HighLDL greater than 189 mg/dL Very high Cholesterol in VLDL Calc [Ma ss/Vol]Ordered By: Corbin Mckinney on 07-01-2021 Cholesterol in VLDL [Mass/Vol] 24 mg/dL [facility] Complete Blood Count no refl exon 07-01-2021 Basophils (Bld) [#/Vol] 0.0 10*3/uL Normal 0.0-0.2 [facility] Comment on above: Result Comment: PERF ORMED BY: [place] [address] PATHOLOGIST CARD SORTER COLE MELENDEZ M.D. Performed By: #### C MP, LIPID, CHC CBC #### [facility] [address] [place] [address] [place] Basophils/100 WBC (Bld) 0.5 % Normal . [facility] Comment on above: Performed By: #### C MP, LIPID, CHC CBC #### [facility] [address] [place] [address] [place] Eosinophils (Bld) [#/Vol] 0.1 10*3/uL Normal 0.0-0.45 [facility] Comment on above: Performed By: #### C MP, LIPID, CHC CBC #### [facility] [address] Eosinophils/100 WBC (Bld) 1.3 % Normal . [facility] Comment on above: Performed By: #### C MP, LIPID, CHC CBC #### [facility] [address] Erythrocyte distribution width (RBC) [Ratio] 13.4 % Normal 12.0-14.8 [facility] Comment on above: Performed By: #### C MP, LIPID, CHC CBC #### [address] Hematocrit (Bld) [Volume fraction] 42.1 % Normal 38.8-50.0 [facility] Comment on above: Performed By: #### C MP, LIPID, CHC CBC #### [facility] [address] Hemoglobin (Bld) [Mass/Vol] 14.5 g/dL Normal 13.0-17.0 [facility] Comment on above: Performed By: #### C MP, LIPID, CHC CBC #### [place] [address] [place] Lymphocytes (Bld) [#/Vol] 1.3 10*3/uL Normal 1.00-4.8 [facility] Comment on above: Performed By: #### C MP, LIPID, CHC CBC #### [place] [address] [place] Lymphocytes/100 WBC (Bld) 26.8 % Normal . [facility] Comment on above: Performed By: #### C MP, LIPID, CHC CBC #### [facility] [address] [place] [address] [place] MCH (RBC) [Entitic mass] 32.4 pg Normal 27.5-35.2 [facility] Comment on above: Performed By: #### C MP, LIPID, CHC CBC #### [facility] [address] [place] [address] [place] MCV (RBC) [Entitic vol] 93.8 fL Normal 83.5-101 [facility] Comment on above: Performed By: #### C MP, LIPID, CHC CBC #### [facility] [address] Mean Corpuscular HGB Conc 34.5 g/dL Normal 32.5-35.6 [facility] Comment on above: Performed By: #### C MP, LIPID, CHC CBC #### [facility] [address] Monocytes (Bld) [#/Vol] 0.4 10*3/uL Normal 0.0-0.8 [facility] Comment on above: Performed By: #### C MP, LIPID, CHC CBC #### [facility] [address] Monocytes/100 WBC (Bld) 7.7 % Normal . [facility] Comment on above: Performed By: #### C MP, LIPID, CHC CBC #### [facility] [address] Neutrophils (Bld) [#/Vol] 3.0 10*3/uL Normal 1.8-7.7 [facility] Comment on above: Performed By: #### C MP, LIPID, CHC CBC #### [place] [address] [place] Neutrophils/100 WBC (Bld) 63.7 % Normal . [facility] Comment on above: Performed By: #### C MP, LIPID, CHC CBC #### [facility] [address] [place] [address] [place] Nucleated RBC/100 WBC (Bld) [Ratio] 0.1 % Normal 0-0.5 [facility] Comment on above: Performed By: #### C MP, LIPID, CHC CBC #### [facility] [address] [place] [address] [place] Platelet mean volume (Bld) [Entitic vol] 7.9 fL Normal 6.6-10.1 [facility] Comment on above: Performed By: #### C MP, LIPID, CHC CBC #### [facility] [address] [place] [address] [place] Platelets (Bld) [#/Vol] 240 10*3/uL Normal 150-450 [facility] Comment on above: Performed By: #### C MP, LIPID, CHC CBC #### [facility] [address] RBC (Bld) [#/Vol] 4.49 10*6/uL Normal 3.90-5.60 [facility] Comment on above: Performed By: #### C MP, LIPID, CHC CBC #### [address] WBC (Bld) [#/Vol] 4.8 10*3/uL Normal 4.5-11.0 [facility] Comment on above: Performed By: #### C MP, LIPID, CHC CBC #### [address] Comprehensive Metabolic Pane jimbo 07-01-2021 Albumin [Mass/Vol] 4.2 g/dL Normal 3.2-5.5 [facility] Comment on above: Performed By: #### C MP, LIPID, CHC CBC #### [address] Albumin/Globulin [Mass ratio] 1.7 {ratio} Normal [facility] Comment on above: Performed By: #### C MP, LIPID, CHC CBC #### [address] ALP [Catalytic activity/Vol] 49 U/L Normal 32-92 [facility] Comment on above: Performed By: #### C MP, LIPID, CHC CBC #### [facility] [address] [place] [address] ALT [Catalytic activity/Vol] 16 U/L Normal 10-60 [facility] Comment on above: Performed By: #### C MP, LIPID, CHC CBC #### [address] AST [Catalytic activity/Vol] 21 U/L Normal 10-42 [facility] Comment on above: Performed By: #### C MP, LIPID, CHC CBC #### [facility] [address] [place] [address] [place] Bilirubin [Mass/Vol] 0.7 mg/dL Normal 0.3-1.2 [facility] Comment on above: Performed By: #### C MP, LIPID, CHC CBC #### [facility] [address] Calcium [Mass/Vol] 9.6 mg/dL Normal 8.2-10.2 [facility] Comment on above: Performed By: #### C MP, LIPID, CHC CBC #### [facility] [address] Chloride [Moles/Vol] 104 mmol/L Normal 95-114 [facility] Comment on above: Performed By: #### C MP, LIPID, CHC CBC #### [facility] [address] CO2 [Moles/Vol] 23.7 mmol/L Normal 22.0-30.0 [facility] Comment on above: Performed By: #### C MP, LIPID, CHC CBC #### [facility] [address] Creatinine [Mass/Vol] 0.92 mg/dL Normal 0.64-1.27 [facility] Comment on above: Performed By: #### C MP, LIPID, [facility] CBC #### [facility] [address] Estimated GFR ( Rebekah > 60 [facility] Comment on above: Result Comment: GFR estimated reference range: According to KDOQI guidelines, <60 ml/min/1.73m2 is sufficient to diagnose a patient with chronic kidney disease. Performed By: #### C MP, LIPID, CHC CBC #### [facility] [address] Estimated GFR (Non- Am > 60 [facility] Comment on above: Performed By: #### C MP, LIPID, CHC CBC #### [facility] [address] [place] [address] [place] Globulin (S) [Mass/Vol] 2.5 g/dL [facility] Comment on above: Performed By: #### C MP, LIPID, CHC CBC #### [facility] [address] [place] [address] [place] Glucose [Mass/Vol] 111 mg/dL High 70-100 [facility] Comment on above: Result Comment: [place] Glucose Reference Range is dependent on time and content of last meal. Glucose of more than 200 mg/dL in a nonstressed, ambulatory subject supports the diagnosis of Diabetes Mellitus. ADA recommended reference range Performed By: #### C MP, LIPID, CHC CBC #### [facility] [address] Potassium [Moles/Vol] 4.4 mmol/L Normal 3.5-5.1 [facility] Comment on above: Performed By: #### C MP, LIPID, CHC CBC #### [facility] [address] Protein [Mass/Vol] 6.7 g/dL Normal 6.1-7.9 [facility] Comment on above: Performed By: #### C MP, LIPID, CHC CBC #### [facility] [address] [place] [address] [place] Sodium [Moles/Vol] 138 mmol/L Normal 136-146 [facility] Comment on above: Performed By: #### C MP, LIPID, CHC CBC #### [facility] [address] [place] [address] [place] Urea nitrogen [Mass/Vol] 19 mg/dL Normal 9-23 [facility] Comment on above: Performed By: #### C MP, LIPID, CHC CBC #### [facility] [address] [place] [address] [place] Creatinine and Glomerular fi ltration rate.predicted panel (S/P/Bld)Ordered By: Corbin Mckinney on 07-01-2021 Creatinine [Mass/Vol] 0.92 mg/dL 0.64-1.27 [facility] Eosinophils Auto (Bld) [#/Vo l]Ordered By: Corbin Mckinney on 07-01-2021 Eosinophils (Bld) [#/Vol] 0.1 10*3/uL 0.0-0.45 [facility] Eosinophils/100 WBC Auto (Bl d)Ordered By: Corbin Mckinney on 07-01-2021 Eosinophils/100 WBC (Bld) 1.3 % [facility] Erythrocyte distribution wid th Auto (RBC) [Ratio]Ordered By: Corbin Mckinney on 07-01-2021 Erythrocyte distribution width (RBC) [Ratio] 13.4 % 12.0-14.8 [facility] Estimated glomerular filtrat ion rate (GFR) non- AmericanOrdered By: Corbin Mckinney on 07-01-2021 GFR/1.73 sq M.predicted among non-blacks MDRD (S/P/Bld) [Vol rate/Area] > 60 mL/Min [facility] Globulin Calc (S) [Mass/Vol] Ordered By: Corbin Mckinney on 07-01-2021 Globulin (S) [Mass/Vol] 2.5 g/dL [facility] Hematocrit Auto (Bld) [Volum e fraction]Ordered By: Corbin Mckinney on 07-01-2021 Hematocrit (Bld) [Volume fraction] 42.1 % 38.8-50.0 [facility] - Hematology and Cell countsOrdered By: Corbin Mckinney on 07-01-2021 Nucleated RBC/100 WBC (Bld) [Ratio] 0.1 % 0-0.5 [facility] Lipid Panelon 07-01-2021 Cholesterol [Mass/Vol] 198 mg/dL Normal 140-200 [facility] Comment on above: Result Comment: Chol less than 200 mg/dl low risk Chol 201-239 mg/dl borderline risk Chol 240 mg/dl and greater high risk Performed By: #### C MP, LIPID, CHC CBC #### [facility] [address] [place] [address] [place] Cholesterol in HDL [Mass/Vol] 50 mg/dL Normal 29-71 [facility] Comment on above: Result Comment: HDL CHOL ATP-III CLASSIFICATION Cardiovascular Risk HDL > or equal to 60 mg/dL LOW HDL < 40 mg/dL HIGH Performed By: #### C MP, LIPID, CHC CBC #### [facility] [address] [place] [address] [place] Cholesterol.total/Chol esterol in HDL [Mass ratio] 4.0 {ratio} Normal <5.0 [facility] Comment on above: Result Comment: PERF ORMED BY: [place] [address] PATHOLOGIST CARD SORTER COLE MELENDEZ M.D. Performed By: #### C MP, LIPID, [facility] CBC #### [address] LDL Cholesterol,Calculated 123 mg/dL High 0-100 [facility] Comment on above: Result Comment: LDL ATP III CLASSIFICATION LDL less than 100 mg/dL Optimal LDL 100-129 mg/dL Near or above optimal LDL 130-159 mg/dL Borderline high LDL 160-189 mg/dL High LDL greater than 189 mg/dL Very high Performed By: #### C MP, LIPID, [facility] CBC #### [address] Triglyceride w/Reflex 124 mg/dL Normal 35-149 [facility] Comment on above: Result Comment: TRIG ATP III CLASSIFICATION TRIG less than 150 mg/dL Normal TRIG 150-199 mg/dL Borderline high TRIG 200-500 mg/dL High TRIG greater than 500 mg/dL Very high Standard traceable to the Center for Disease Conrtrol and Prevention (CDC) test method. Performed By: #### C MP, LIPID, [facility] CBC #### [address] VLDL CHOLESTEROL 24 mg/dL Normal [facility] Comment on above: Performed By: #### C MP, LIPID, [facility] CBC #### [place] [address] [place] Lymphocytes Auto (Bld) [#/Vo l]Ordered By: Corbin Mckinney on 07-01-2021 Lymphocytes (Bld) [#/Vol] 1.3 10*3/uL 1.00-4.8 [facility] Lymphocytes/100 WBC Auto (Bl d)Ordered By: Corbin Mckinney on 07-01-2021 Lymphocytes/100 WBC (Bld) 26.8 % [facility] MCH Auto (RBC) [Entitic mass ]Ordered By: Corbin Mckinney on 07-01-2021 MCH (RBC) [Entitic mass] 32.4 pg 27.5-35.2 [facility] MCHC Auto (RBC) [Mass/Vol]Or dered By: Corbin Mckinney on 07-01-2021 MCHC (RBC) [Mass/Vol] 34.5 g/dL 32.5-35.6 [facility] MCV Auto (RBC) [Entitic vol] Ordered By: Corbin Mckinney on 07-01-2021 MCV (RBC) [Entitic vol] 93.8 fL 83.5-101 [facility] Monocytes Auto (Bld) [#/Vol] Ordered By: Corbin Mckinney on 07-01-2021 Monocytes (Bld) [#/Vol] 0.4 10*3/uL 0.0-0.8 [facility] Monocytes/100 WBC Auto (Bld) Ordered By: Corbin Mckinney on 07-01-2021 Monocytes/100 WBC (Bld) 7.7 % [facility] Neutrophils Auto (Bld) [#/Vo l]Ordered By: Corbin Mckinney on 07-01-2021 Neutrophils (Bld) [#/Vol] 3.0 10*3/uL 1.8-7.7 [facility] Neutrophils/100 WBC Auto (Bl d)Ordered By: Corbin Mckinney on 07-01-2021 Neutrophils/100 WBC (Bld) 63.7 % [facility] No Panel InformationOrdered By: Corbin Mckinney on 07-01-2021 Estimated GFR () > 60 mL/Min [facility] Comment on above: GFR estimated refere nce range: According to KDOQI guidelines, <60 ml/min/1.73m2 is sufficient to diagnose a patient with chronic kidney disease. Pharmacy Creatinine Clearance (Chem N/A [facility] Platelet mean volume Auto (B ld) [Entitic vol]Ordered By: Corbin Mckinney on 07-01-2021 Platelet mean volume (Bld) [Entitic vol] 7.9 fL 6.6-10.1 [facility] Platelets Auto (Bld) [#/Vol] Ordered By: Corbin Mckinney on 07-01-2021 Platelets (Bld) [#/Vol] 240 10*3/uL 150-450 [facility] Protein [Mass/volume] in Ser um or PlasmaOrdered By: Corbin Mckinney on 07-01-2021 Protein [Mass/Vol] 6.7 g/dL 6.1-7.9 [facility] RBC Auto (Bld) [#/Vol]Ordere d By: Corbin Mckinney on 07-01-2021 RBC (Bld) [#/Vol] 4.49 10*6/uL 3.90-5.60 [facility] Serum or plasma alanine fiore otransferase measurement without P-5'-P (enzymatic activiOrdered By: Corbin Mckinney on 07-01-2021 ALT No additional P-5'-P [Catalytic activity/Vol] 16 U/L 10-60 [facility] Serum or plasma albumin/glob ulin mass ratioOrdered By: Crobin Mckinney on 07-01-2021 Albumin/Globulin [Mass ratio] 1.7 {ratio} [facility] Serum or plasma alkaline crow sphatase measurement (enzymatic activity/volume)Ordered By: Corbin Mckinney on 07-01-2021 ALP [Catalytic activity/Vol] 49 U/L 32-92 [facility] Serum or plasma aspartate am inotransferase measurement (enzymatic activity/volume)Ordered By: Corbin Mckinney on 07-01-2021 AST [Catalytic activity/Vol] 21 U/L 10-42 [facility] Serum or plasma calcium carlos manuel urement (mass/volume)Ordered By: Corbin Mckinney on 07-01-2021 Calcium [Mass/Vol] 9.6 mg/dL 8.2-10.2 [facility] Serum or plasma chloride rafa surement (moles/volume)Ordered By: Corbin Mckinney on 07-01-2021 Chloride [Moles/Vol] 104 mmol/L 95-114 [facility] Serum or plasma glucose carlos manuel urement (mass/volume)Ordered By: Corbin Mckinney on 07-01-2021 Glucose [Mass/Vol] 111 mg/dL 70-100 [facility] Comment on above: ADA recommended refe rence rangeRandom Glucose Reference Range is dependent on time and content of last meal. Glucose of more than 200 mg/dL in a nonstressed, ambulatory subject supports the diagnosis of Diabetes Mellitus. Serum or plasma high density lipoprotein (HDL) cholesterol measurementOrdered By: Corbin Mckinney on 07-01-2021 Cholesterol in HDL [Mass/Vol] 50 mg/dL 29-71 [facility] Comment on above: HDL CHOL ATP-III CLA SSIFICATION Cardiovascular RiskHDL > or equal to 60 mg/dL LOWHDL < 40 mg/dL HIGH Serum or plasma potassium me asurement (moles/volume)Ordered By: Corbin Mckinney on 07-01-2021 Potassium [Moles/Vol] 4.4 mmol/L 3.5-5.1 [facility] Serum or plasma sodium measu rement (moles/volume)Ordered By: Corbin Mckinney on 07-01-2021 Sodium [Moles/Vol] 138 mmol/L 136-146 [facility] Serum or plasma total biliru bin measurement (mass/volume)Ordered By: Corbin Mckinney on 07-01-2021 Bilirubin [Mass/Vol] 0.7 mg/dL 0.3-1.2 [facility] Serum or plasma total carbon dioxide measurement (moles/volume)Ordered By: Corbin Mckinney on 07-01-2021 CO2 [Moles/Vol] 23.7 mmol/L 22.0-30.0 [facility] Serum or plasma total choles terol/high density lipoprotein (HDL) cholesterol mass ratOrdered By: Corbin Mckinney on 07-01-2021 Cholesterol.total/Chol esterol in HDL [Mass ratio] 4.0 {ratio} [facility] Serum or plasma urea nitroge n measurement (mass/volume)Ordered By: Corbin Mckinney on 07-01-2021 Urea nitrogen [Mass/Vol] 19 mg/dL 9-23 [facility] Triglyceride [Mass/volume] i n Serum or PlasmaOrdered By: Corbin Mckinney on 07-01-2021 Triglyceride [Mass/Vol] 124 mg/dL 35-149 [facility] Comment on above: TRIG ATP III CLASSIF ICATIONTRIG less than 150 mg/dL NormalTRIG 150-199 mg/dL Borderline highTRIG 200-500 mg/dL High TRIG greater than 500 mg/dL Very highStandard traceable to the Center for Disease Conrtrol and Prevention (CDC) test method. XR chest 2V*on 07-01-2021 XR chest 2V* [facility] Main [place] [address] [place], [place] [id number] XRay Report Signed Patient: Froylan Hardy MR#: [id number] : 1955 Acct:[id number] Age/Sex: 66 / M ADM Date: 07/01/21 [...] Zeinab Reyes M.D.07/01/2021 10:06 AM Dictation Location: [place] [address] Transcribed By: [facility] 07/01/21 1006 Dictated By: Zeinab Reyes MD 07/01/21 1005 Signed By: 07/01/21 1006 Normal [facility] Vital Signs Date Time Vital Sign Value Performing Clinician Facility 12-24-2023 09:15-0400 Body mass index (BMI) [Ratio] 24.7 kg/m2 [facility] 12-24-2023 09:15-0400 Diastolic blood pressure 85 mm[Hg] [facility] 12-24-2023 09:15-0400 Systolic blood pressure 135 mm[Hg] [facility] 12-24-2023 08:57-0400 Body height 175.26 cm [facility] 12-24-2023 08:57-0400 Body weight 75.92 kg [facility] 12-24-2023 08:57-0400 Respiratory rate 12 /min [facility] 12-22-2023 15:10-0400 Blood Pressure Location Holly Sarmini [facility] 12-22-2023 15:10-0400 Diastolic blood pressure 85 mm[Hg] Holly Sarmini [facility] 12-22-2023 15:10-0400 Heart rate 75 /min Holly Sarmini [facility] 12-22-2023 15:10-0400 Mean blood pressure 105 mm[Hg] Holly Sarmini [facility] 12-22-2023 15:10-0400 Respiratory rate 16 /min Holly Sarmini [facility] 12-22-2023 15:10-0400 SaO2% (BldA) [Mass fraction] 97 % Holly Sarmini [facility] 12-22-2023 15:10-0400 Systolic blood pressure 144 mm[Hg] Holly Sarmini [facility] 12-22-2023 14:55-0400 Blood Pressure Location Holly Sarmini [facility] 12-22-2023 14:55-0400 Diastolic blood pressure 101 mm[Hg] Holly Sarmini [facility] 12-22-2023 14:55-0400 Heart rate 82 /min Holly Sarmini [facility] 12-22-2023 14:55-0400 Mean blood pressure 108 mm[Hg] Holly Sarmini [facility] 12-22-2023 14:55-0400 Respiratory rate 16 /min Holly Sarmini [facility] 12-22-2023 14:55-0400 SaO2% (BldA) [Mass fraction] 94 % Holly Sarmini [facility] 12-22-2023 14:55-0400 Systolic blood pressure 122 mm[Hg] Holly Sarmini [facility] 12-22-2023 14:40-0400 Blood Pressure Location Holly Sarmini [facility] 12-22-2023 14:40-0400 Diastolic blood pressure 82 mm[Hg] Holly Sarmini [facility] 12-22-2023 14:40-0400 Heart rate 82 /min Holly Sarmini [facility] 12-22-2023 14:40-0400 Mean blood pressure 95 mm[Hg] Holly Sarmini [facility] 12-22-2023 14:40-0400 Respiratory rate 19 /min Holly Sarmini [facility] 12-22-2023 14:40-0400 SaO2% (BldA) [Mass fraction] 93 % Holly Sarmini [facility] 12-22-2023 14:40-0400 Systolic blood pressure 120 mm[Hg] Holly Sarmini [facility] 12-22-2023 14:35-0400 Respiratory rate 16 /min Holly Sarmini [facility] 12-22-2023 14:30-0400 Respiratory rate 21 /min Holly Sarmini [facility] 12-22-2023 14:26-0400 Body temperature 97.88 [degF] Holly Sarmini [facility] 12-22-2023 14:20-0400 Respiratory rate 24 /min Holly Sarmini [facility] 12-22-2023 13:29-0400 Body temperature 97.7 [degF] Holly Sarmini [facility] 12-16-2023 12:36-0400 Diastolic blood pressure 73 mm[Hg] Holly Sarmini [facility] 12-16-2023 12:36-0400 Heart rate 89 /min Holly Sarmini [facility] 12-16-2023 12:36-0400 Systolic blood pressure 126 mm[Hg] Holly Sarmini [facility] 12-16-2023 12:32-0400 Blood Pressure Location Holly Sarmini [facility] 12-16-2023 12:32-0400 Respiratory rate 16 /min Holly Sarmini [facility] Encounters Encounter Date Encounter Type Care Provider Facility Start: 01-26-2024 ambulatory Holly Talal Sarmini Facility:[facility] Start: 12-24-2023 End: 12-24-2023 ambulatory [facility] Work Phone: Start: 12-24-2023 End: 12-24-2023 Patient encounter procedure [facility] Work Phone: Start: 12-22-2023 End: 12-22-2023 ambulatory Holyl Talal Sarmini Facility:[facility] Start: 12-22-2023 End: 12-22-2023 Patient encounter procedure Holly Talal Sarmini [facility] Start: 12-16-2023 End: 12-16-2023 ambulatory Holly Magalie Nunezi Facility:[facility] Start: 12-16-2023 End: 12-16-2023 Patient encounter procedure Elayne Zepeda [facility] Start: 12-02-2023 ambulatory Elayne Carbonemini Facili ty:[facility] Start: 07-01-2021 End: 07-01-2021 Departed Referred DO Corbin Mckinney Jr Work Phone: [facility] [address] Start: 03-17-2021 End: 03-18-[address] NONE LISTED REQUEST Facility:[facility] Start: 06-25-2020 End: 06-26-[address] NONE LISTED REQUEST Facility:[facility] Start: 06-03-2020 End: 06-04-[address] NONE LISTED REQUEST Facility: Start: 05-31-2017 Ambulatory PAULETTE CRAIN Facility:[id number] Start: 05-31-2017 Ambulatory Facility:[id number] Procedures Date Procedure Procedure Detail Performing Clinician Start: 12-22-2023 Colonoscopy Elayne Camara carleymannie Start: 07-01-2021 Plain chest X-ray DO Jonel Mckinney Jr Work Phone: Start: 03-17-[address] GIVENS L ISTED REQUEST Comment on above: Performed By: #### D ATPSA #### [facility] [address] [place] [address] Dr. Shelli Sood Start: 02-07-2016 right inguinal herni a repair Elayne Nunezi hernia repair as child 1 Munya Nunezi Comment on above: unknown side History of right hip replacement Holly Enriquei left ring finger ten don repair Elayne Nunezi right ankle fx Elayne Jacobs ini Plan of Treatment Date Care Activity Detail Author [facility] Payers Date Payer Category Payer Medicare [id number] 2019 Private Health Insurance [id number] 1957 Self-pay [id number] 1955 Unknown [id number] 2.16.8 [id number] 1955 Unknown [id number] 2.16.8 [id number] 1955 Unknown [id number] 2.16.8 [id number] 1955 Unknown [id number] 2.16.8 [id number] Medicare Medicare [id number] Unknown FROYLAN HARDY Unknown [id number] 2.16.84 [id number] Unknown [id number] 2.16.84 [id number] Unknown [id number] 2.16.84 [id number] Social History Date Type Detail [facility] Work Phone: Start: 1955 Sex Assigned At Male [facility] Start: 12-16-2023 Tobacco smoking status Never s moked tobacco (finding) [facility] Tobacco smoking status Never [facility]ra [facility] Sex Assigned At Male [facility] Functional Status Date Assessment Result Facility 12-22-2023 Functional Status N/A [facility] 12-16-2023 Functional Status N/A [facility] Clinical Notes 12-22-2023 Note Date [...] hard liquor (44 mL). General instructions Take sgma-sxj-qociiey and prescription medicines only as told by [...] provider. Document Revised: 06/26/2020 Document Reviewed: 06/26/2020 [employer] Patient Education 2023 [employer]. 12/22/2023 15:03:35 Colonoscopy, Care After Surgery Salam [...] get enough exercise. You smoke. You take qacs-mwq-vloexfa pain medicines. You have a family history [...] Follow these instructions at home: Medicines Take pkox-yjs-zakwytm and prescription medicines only as told by your provider. If told, take a fiber supplement or probiotic. Managing constipation Your condition may cause constipation. To prevent or treat constipation, you may need to: Drink enough fluid to keep your pee (urine) pale yellow. Take cszm-dnt-fgwytel or prescription medicines. Eat foods that are [...] provider. Document Revised: 12/03/2022 Document Reviewed: 12/03/2022 [employer] Patient Education 2023 [employer]. 12/22/2023 15:03:20 Hemorrhoids, Ueqw-dy-Oaak Hemorrhoids Hemorrhoids are swollen veins that may [...] Follow these instructions at home: Medicines Take ulzd-riy-fvwymdd and prescription medicines only as told by [...] provider. Document Revised: 11/18/2022 Document Reviewed: 11/18/2022 [employer] Patient Education 2023 [employer] Follow Up Care 12/16/2023 13:40:15 With:Duane HARRIS, ANUJA Taylor, [facility] Address: [address] [place] [address], [address] [address] [phone] When: Unknown Comments:Office will call to schedule follow up appointment and/or review any pending biopsy resultsCall for any problems. [facility] 12-22-2023 Note Progress Note-Levy nagy Patient: [...] family history is negative. Procedure history: Colonoscopy ([id number]) on 12/22/2023 at 68 Years. right inguinal hernia repair on 02/07/2016 at 60 Years. History of right hip replacement ([id number]). right ankle fx. left ring finger tendon [...] 84 mmHg mmHg (more content not included)... [facility] Comment on above: Result Comment: Elec tronically Signed By: Carlitos Louis MD\.br\Date and Time Signed: 12/22/23 16:16 EDT 12-22-2023 Note Progress Note-Physic lilo Patient: FROYLAN HARDY Age: 68 years Sex: Male : 1955 Associated Diagnoses: None Author: Carlitos Louis MD Postoperative Information Postoperative disposition: Postoperative disposition: To PACU. Optimetrix number: Optimetrix number [id number]. Anesthetic utilized: General. Health Status Allergies: Allergic [...] when meets criteria ( To home ). [facility] Comment on above: Result Comment: Harvey garcia [...] exercise. ? You smoke. ? You take ovmk-yxe-jvyepau pain medicines. ? You have a family [...] these instructions at home: Medicines ? Take olkm-ffx-ehexmuj and prescription medicines only as told by your provider. ? If told, take a fiber supplement or probiotic. Managing constipation Your condition may cause constipation. To prevent or treat constipation, you may need to: ? Drink enough fluid to keep your pee (urine) pale yellow. ? Take iheb-hja-zytoupq or prescription medicines. ? Eat foods that [...] provider. Document Orly (more content not included)... [facility] 12-22-2023 Note Endoscopic Procedure Report - Other [...] 60 Years. History of right hip replacement ([id number]). right ankle fx. left ring finger tendon repair. hernia repair as child. Comments: 01/31/2016 8:20 Aviva Wu RN unknown side. Past Medical History No active or resolved past medical history items have been selected or recorded.. reviewed. Family History Entire family history is negative.. reviewed. Procedure History right inguinal hernia repair on 02/07/2016 at 60 Years. History of right hip replacement ([id number]). right ankle fx. left ring finger tendon [...] Normal examined terminal ileum Images Procedure images: Rec_hd_video__32_ 35_991.jpg Rec_hd_video__32_ 24_849.jpg Rec_hd_video__31_ 02_595.jpg Rec1_hd_video__30_ 25_257.jpg Rec1_hd_video__30_ 11_415.jpg Rec_hd_video__29_ 58_249.jpg Rec1_hd_video__28_ 47_991.jpg Rec1_hd_video_2023__3_28_ 37_661.jpg Rec1_hd_video_2023__3_26_ 44_572.jpg Rec1_hd_video_2023__T13_25_ 24_316.jpg Rec1_hd_video_2023__3_23_ 01_815.jpg Rec1_hd_video_2023__T13_20_ 13_217.jpg Rec1_hd_video_2023__T13_19_ 43_549.jpg Rec1_hd_video_2023__3_17_ 58_460.jpg Rec1_hd_video_2023__3_17_ 47_832.jpg Rec1_hd_video_2023__3_17_ 29_315.jpg Rec1_hd_video_2023__T13_17_ 24_069.jpg . Post-Procedure Complications: none. Estimated blood [...] medications, Avoid NSAIDs. (more content not included)... [facility] Comment on above: Result Comment: Elec tronically Signed By: Duane HARRIS, Elayne Mejias\.br\Date and Time Signed: 12/22/23 14:27 EDT Other Comment: Noreen schulte Attachment - attachment storage system not supported [id number] Can be viewed in source system Missing Attachment - attachment storage system not supported [id number] Can be viewed in source system Missing Attachment - attachment storage system not supported [id number] Can be viewed in source system Missing Attachment - attachment storage system not supported [id number] Can be viewed in source system Missing Attachment - attachment storage system not supported [id number] Can be viewed in source system Missing Attachment - attachment storage system not supported [id number] Can be viewed in source system Missing Attachment - attachment storage system not supported [id number] Can be viewed in source system Missing Attachment - attachment storage system not supported [id number] Can be viewed in source system Missing Attachment - attachment storage system not supported [id number] Can be viewed in source system Missing Attachment - attachment storage system not supported [id number] Can be viewed in source system Missing Attachment - attachment storage system not supported [id number] Can be viewed in source system Missing Attachment - attachment storage system not supported [id number] Can be viewed in source system Missing Attachment - attachment storage system not supported [id number] Can be viewed in source system Missing Attachment - attachment storage system not supported [id number] Can be viewed in source system Missing Attachment - attachment storage system not supported [id number] Can be viewed in source system Missing Attachment - attachment storage system not supported [id number] Can be viewed in source system Missing Attachment - attachment storage system not supported [id number] Can be viewed in source system 12-22-2023 Evaluation + Plan note Extrac nancy from: Title:ANES Pre-operative Note 2022 Author:Carlitos Jones Date:12/22/23 Plan Citizen Of [place] Society of Anesthesiologists (ASA) physical status classification: Class I. Anesthetic Preoperative Plan: Anesthesia General. Extracted from: Title:ANES Post-operative Note---General Author: Carlitos Louis MD Date:12/22/23 Plan Transfer/Discharge: Transfer/Discharge Discharge when meets criteria ( To home ). Extracted from: Title:1Preop H&P Author:Elayne Zepeda MD Date:12/22/23 Impression and Plan Impression: screening colon cancer Plan: - Colonoscopy [facility] 10-02-2024 NoteHistory and Physical Patient: FROYLAN [...] 60 Years. History of right hip replacement ([id number]). right ankle fx. left ring finger tendon [...] mmHg (DEC 21:) Weight 78.2 kg (DEC 21:) BMI 25.48 (DEC 21:) General: in Nad Abdomen: Soft, NTND Impression and Plan Impression: screening colon cancer [facility]Result Comment: Electronically Signed By: Duane HARRIS, Elayne Kyle\Date and Time Signed: 12/22/23 13:57 EDTEvaluation + Plan note Future Appointments Appointment Date:12/22/2023 02:00:00 PM Scheduled Provider: Location:[facility] Appointment Type:Surgery FT [facility] Evaluation noteNo assessment information available [facility] Work Phone: Evaluation note* Diagnosis Onset Date Resolution Status Screening for colon cancer a cute Screening PSA (prostate specific antigen) acute [facility] Work Phone: Hospital course Narrative No data available for this section [facility] Hospital Discharge instructions No data available for this section [facility] Progress note No data available for this section [facility] Summary Purpose Family History No Family History Records FoundNo Family History Records FoundNo Family History Records FoundNo Family History Records Found No data available for this section No data available for this section No Family History Records FoundNo Family History Records FoundNo Family History Records Found Advance Directives No Advanced Directives Records Found Advance Directive Response Recorded Date/ Time Advance Directives No December 24, 2023 8:49am Chief Complaint and Reason for Visit Chief Complaint LABS Chief Complaint Wellness Reason for Visit Screening for colon cancer Screening PSA (prostate specific antigen) Additional Source Comments (unrecognized sect ion and content) No Status Records FoundNo Status Records FoundNo Status Records FoundNo Status Records FoundNo Status Records FoundNo Status Records FoundNo Status Records Found INFORMATION SOURCE (unrecogn ized section and content) DATE CREATED AUTHOR 09/10/2017 [facility] DATE CREATED AUTHOR AUTHOR'S ORGANIZ ATION 09/10/2017 [facility] [place] DATE CREATED AUTHOR AUTHOR'S ORGANIZ ATION 03/18/2021 [facility] DATE CREATED AUTHOR AUTHOR'S ORGANIZ ATION 07/02/2021 [facility] DATE CREATED AUTHOR AUTHOR'S ORGANIZ ATION 12/28/2023 [facility] DATE CREATED AUTHOR AUTHOR'S ORGANIZ ATION 01/02/2024 [facility] DATE CREATED AUTHOR AUTHOR'S ORGANIZ ATION 01/05/2024 [facility] Care Teams (unrecognized sec tion and content) Team Status: Inactive Member Role Status Dates Corbin Mckinney Jr, DO Attending Provider Active Team Status: Active Member Role Status Dates Richard Rahman DO Primary Care Provider Active Team Status: Inactive Member Role Status Dates Richard Rahman DO Primary Care Provide r, Attending Provider Active Start: December 24, 2023 End: December 24, 2023 Goals (unrecognized section and content) Goals may be documented in a n alternate section No data available for this section No data available for this sectionGoals may be documented in an alternate section FOR RECORDS PERTAINING TO PATIENTS WHO [...] BE BASED ON THE PRIMARY CLINICAL RECORDS. [employer] provides no warranty or guarantee of the accuracy or completeness of information in this document.
[2024-01-10 11:37] LABS: Basophils Percent Auto 0.6 % (0.2-2.0); Eosinophils Absolute Auto 0.1 10^3/uL (0.0-0.7); Eosinophils Percent Auto 0.9 % (0.9-7.0); Hematocrit 39.7 % (42.0-54.0); Immature Granulocytes Abs Auto 0.01 10^3/uL (0.00-0.03); Immature Granulocytes Pct Auto 0.2 % (0.0-0.5); Lymphocytes Absolute Auto 1.6 10^3/uL (1.2-3.8); Lymphocytes Percent Auto 24.3 % (20.5-60.0); Mean Corpuscular HGB Conc 35.3 g/dL (29.9-35.2); Mean Corpuscular Hemoglobin 32.3 pg (25.9-34.0); Mean Corpuscular Volume 91.7 fL (80.0-94.0); Mean Platelet Volume 9.4 fL (9.5-13.5); Monocytes Absolute Auto 0.5 10^3/uL (0.3-0.8); Neutrophils Absolute Auto 4.4 10^3/uL (1.4-6.5); Platelet Count 235 10^3/uL (150-450); Red Blood Count 4.33 10^6/uL (4.70-6.10); Red Cell Distribution Width 11.9 % (11.0-15.0); White Blood Count 6.5 10^3/uL (4.0-11.0)
[2024-01-10] MEDS: LACTATED RINGER'S SOLUTION 1,000 ML 50 ML IV ×2 (12:07→14:52)
[2024-01-10] MEDS: CEFAZOLIN SODIUM 2 GM/50 ML D5W PREMIX IV (13:12)
[2024-01-10] MEDS: EPINEPHRINE HCL PF 1 MG/ML AMPULE 4 MG INJ (14:40)
[2024-01-10] MEDS: HYDROMORPHONE HCL 0.5 MG/0.5 ML SYRINGE IV (15:14)
--- NOTE | 2024-01-10 15:16 | P.ORPRC_ITS ---
Procedure Note Date of procedure: 01/10/24 Pre-op diagnosis: Left shoulder rotator cuff tear and degenerative joint disease Post-op diagnosis: same as pre-op Procedure: Operation: Left shoulder arthroscopic rotator cuff repairs of the subscapularis, supraspinatus and infraspinatus tendons and extensive debridement anterior labrum, glenoid chondromalacia, bursitis Operation performed: After informed consent was obtained the patient was brought to the operating r oom where general anesthetic was administered. Preoperatively regional block was placed. Patient was placed in the beachchair position. Exam under anesthesia of the left shoulder revealed full range of motion and no instability. The left arm was prepped and draped in the usual sterile fashion. Diagnostic arthroscopy was performed the standard anterior, posterior, and lateral arthroscopy portals. Findings included a full-thickness moderately retracted tear of the upper 1-1/2 cm of subscapularis tendon. Biceps tendon was intact without any tearing. Type I tearing of the anterior labrum which was debrided with the arthroscopic shaver back to stable edge. Anterior third of the glenoid had diffuse grade III chondromalacia which was debrided with arthroscopic shaver back to more stable articular cartilage. Superior labrum was intact. Full-thickness moderately retracted tears of the supraspinatus and infraspinatus tendons that were mobile and easily to the greater tuberosity. Axillary recess had no loose bodies. Posterior humeral head had small osteophyte formation. Attention was next turned to repair of the subscapularis tendon. Arthroscopic shaver was used debride the lesser tuberosity where the rotator cuff and torn from down to bleeding bed of bone. An Arthrex 5.5 FT bio composite suture anchor was placed in the lesser tuberosity where the rotator cuff and torn from. 90 degree suture lasso was used to pass 2 sutures through the subscapularis tendon. These were then tied in a simple fashion nicely repairing the subscapularis tendon back down to the bone. The arthroscope was introduced in the subacromial space and there was moderate bursal inflammation which was debrided with arthroscopic shaver. Greater tuberosity where the supra and infraspinatus tendons and torn from was debrided down to bleeding bed of bone. 1 Arthrex suture tape was placed in an inverted horizontal mattress fashion in the supraspinatus tendon and then a torn. Next an Arthrex fiber tape was placed in an inverted horizontal mattress fashion in the torn infraspinatus tendon. These were then repaired to the greater tuberosity with 1 Arthrex 5.5 bio composite swivel lock. Larger suture anchor was used due to soft bone. Nice repair was achieved. Shoulder was drained of arthroscopy fluid. Portals were closed with a nylon suture. Sterile dressing was placed. UltraSling was placed. Patient was awakened and brought to the recovery room in stable condition. There were no intraoperative or immediate postoperative complications.
== END 2024-01-10 16:15 | disposition home or self-care (01) ==
PROVIDERS: Anesthesiology; PCP Internal Medicine; Visit Provider Orthopaedic Surgery
PROC: (CPT 1630; principal; 2024-01-10 13:00)
DX: S46.012A Strain of muscle(s) and tendon(s) of the rotator cuff of left shoulder, initial encounter (principal); M19.012 Primary osteoarthritis, left shoulder; Z96.641 Presence of right artificial hip joint
CPT/HCPCS: 29827; 36415; 64415; 85025; C1713; J0131; J0690; J1100; J1171; J1885; J2250; J2371; J2405; J2704; J2795

== ENCOUNTER 2024-02-07 09:00 | Outpatient (RCR) | payer OTHER, SELFPAY | END 2024-02-08 15:49 | disposition home or self-care (01) | LOC: PT 09:00 | PROVIDERS: PCP Internal Medicine; Visit Provider Orthopaedic Surgery | DX: S46.012D Strain of muscle(s) and tendon(s) of the rotator cuff of left shoulder, subsequent encounter (principal) | CPT/HCPCS: 97110; 97161 ==

== ENCOUNTER 2024-02-21 08:01 | Outpatient (OUT) | payer OTHER, SELFPAY ==
--- NOTE | 2024-02-21 | XR_ITS ---
[address] [address] Patient Name: VANESSA KEY MRN: [id number] date: 1955 Sex: M Assigned Patient Location: Current Patient Location: Accession/Order Number: [id number] Exam Date: 02/21/2024 08:08 Report Date: 02/22/2024 06:25 At the request of: NIR JEFFERS Procedure: XR lumbar spine min 4V EXAMINATION: XR lumbar spine min 4V HISTORY: LUMBAR SPINE PAIN COMPARISON: No relevant comparison available. FINDINGS: BONES: Multilevel grade 1 listhesis: Retrolisthesis of L2 on 3 and L3 on 4. Anterior listhesis of L4 on 5 and of L5 on S1. No significant change in alignment during flexion and extension. Slight anterior wedging of L1 without increased trabecular density. Moderate-marked degenerative facet arthropathy L3-L4 through L5-S1 with bone encroachment on the neural foramen at most lumbar levels. Mild scoliotic curvature. DISC SPACES: Marked narrowing L4-L5, L5-S1. Moderate narrowing at remaining levels. PARASPINOUS: Atherosclerotic disease of aorta. OTHER: Negative. XR/XR lumbar spine min 4V IMPRESSION: 1. Marked degenerative changes of lumbar spine. Electronically authenticated by: NIR SANDOVAL Date: 02/22/2024 06:25
--- OUTSIDE RECORDS SUMMARY | 2024-02-21 08:17 | XMS_ITS | CCD ---
Author Organization [facility] Care Team Providers Care Plate Grinder Name Role Phone PAULETTE CRAIN Unavailable Unavailable [...] ble DO Corbin Mckinney Jr Attending Provider RICHARD RAHMAN Primary Care Physician [phone] Elayne Jewell Attending Unavaila ble Elayne Jewell Admitting Unavaila ble Elayne Jewell Attending Unavaila ble Elayne Jewell Referring Unavaila ble Elayne Jewell Attending Unavaila ble Medications Current Medications Medication Drug Class(es) Dates Sig (Normalized) Sig (Original) {1 (Ascorbic Acid 7540 MG / POLYETHYLENE GLYCOL 3350 25583 MG / Potassium Chloride 1200 MG / Sodium Ascorbate 89598 MG / Sodium Chloride 3200 MG Powder for Oral Solution) / 1 (POLYETHYLENE GLYCOL 3350 257765 MG / Potassium Chloride 1000 MG / Sodium Chlori (1 source) Osmotic Laxative, Vitamin C Start: 12-16-2023 Plenvu oral powder for reconstitution See Instructions, 1 EA, Refill(s) 0, Oral, [id number], 78.2, kg, 12/16/23 12:35:00 EDT, Weight Dosing Start Date: 12/16/23 Status: Ordered Completed/Discontinued Medications Medication Drug Class(es) Dates Sig (Normalized) Sig (Original) celecoxib 200 mg oral capsule (1 source) Nonsteroidal Anti-inflammatory Drug Start: 01-25-2024 celecoxib 200 mg Cap 30 EA, 0 Refill(s), TAKE 1 CAPSULE BY MOUTH EVERY DAY FOR 30 DAYS, Refills(s) 0 Start Date: 01/25/24 Status: Ordered Problems Active Problems Problem Classification Problem Date Documented Date Episodic/Chronic Other and unspecified benign neoplasm (2 sources) Polyp of colon; Translations: [Polyp of colon] Onset: 01-25-2024 Episodic Other screening for suspected conditions (not mental disorders or infectious disease) (6 sources) Screening for malignant neoplasm of colon done; Translations: [Encounter for screening for malignant neoplasm of colon] Onset: 12-14-2023 Episodic Unclassified (2 sources) Encounter for screening for cardiovascular disorders / Z13.6(ICD-9) Onset: 05-31-2017 Unclassified (1 source) Screening for malignant neoplasm of colon done Onset: 12-14-2023 01-25-2024 Past or Other Problems Problem Classification Problem Date Documented Date Episodic/Chronic Unclassified (1 source) Encounter for screening for cardiovascular disorders; Translations: [Encounter for screening for cardiovascular disorders] Onset: 05-31-2017 Results Test Name Value Interpretation Reference Range Facility Reminderson 01-28-2024 Reminders Reminders From: Adrianna Mccarty To: [facility] Reminders/Recalls; Sent: 01/28/2024 13:02:00 EST Show up: 11/20/2028 13:01:00 EDT Subject: Ambulatory Reminder Due Date/Time: 12/20/2028 13:01:00 EDT Reminder/Recall Addendum by Adrianna Mccarty on January 28, 2024 12:58:27 EST 12/21/2028 From: Elayne Jewell MD To: Adrianna Mccarty; Sent: 01/26/2024 09:08:01 EST Subject: General Message Caller Name: FROYLAN HARDY; Caller Number: , M Colonoscopy [address] [facility] Reminders Reminders From: Elmer Powers To: [facility] - Reminders/Recalls; Sent: 12/30/2023 16:11:25 EDT Show up: 11/20/2030 16:11:00 EDT Subject: Ambulatory Reminder Due Date/Time: 12/21/2030 16:11:00 EDT Reminder/Recall Repeat colonoscopy in 7 years(2030) - serrated adenoma per dr jewell, changed it to five.. disregard. Normal [facility] Ambulatory Visit Summaryon 1 03-27-2023 Ambulatory Visit Summary Ambulatory Visit Summary FROYLAN HARDY :1955 Visit Date:01/26/2024 Ambulatory Visit Instructions Your Diagnosis Colon polyps Your Care Team Attending Physician - Duane HARRIS, Elayne Mejias Primary Care Physician - NIDHI RUSHING, RICHARD This Is Your Medications List Contact prescribing physician if questions or concerns celecoxib (celecoxib 200 mg Cap) Procedures Performed Colonoscopy (12/22/2023), right inguinal hernia repair (02/07/2016), hernia repair as child, History of right hip replacement, left ring finger tendon repair, right ankle fx. Discharge Vitals Heart Rate (Peripheral) 78 Respiratory Rate 18 Blood Pressure 124/78 Height 175 cm Height 69 in Weight 76 kg Weight 167.2 lb BMI 24.82 Medications What When Instructions Unchanged celecoxib (celecoxib 200 mg Cap) 30 EA, 0 Refill(s), TAKE 1 CAPSULE BY MOUTH EVERY DAY FOR 30 DAYS Contact prescribing physician if questions or concerns Allergies No Known Allergies Problems Ongoing - Any problem that you are currently receiving treatment for. Colon polyps Screening for malignant neoplasm of colon done Patient Survey You may receive a survey via text or e-mail asking about your office visit. Please share your experience with us by completing your survey. We appreciate your feedback and thank you for choosing us for your care. [facility] Gastroenterology Office/Clin ic Noteon 01-26-2024 Gastroenterology Office/Clinic Note Gastroenterology Office/Clinic Note Chief Complaint f/u colonoscopy HPI Staff Patient is a(n) 68 year old male who presents today for a follow up to Colonoscopy on 10/2/24. 7 year colon recall placed. Any GI complaints? none Denies blood thinners. Denies GLP-1 agonists. Last visit 12/16/23 w/Dr. Jewell: Assessment/Plan 1. Screen for colon cancer (Z12.11: Encounter for screening for malignant neoplasm of colon) discussed prep types patient is agreeable for colonoscopy Discussed all possible risk and benefits will proceed with colonoscopy, Colonoscopy: Impression and Plan 1. moderate internal hemorrhoids [...] colonoscopy:: 3-5 years based on pathology . Pathology: Final Diagnosis ( Modified ) A: POLYPS, SIGMOID COLON, POLYPECTOMY: ??? HYPERPLASTIC POLYPS. B: SIGMOID COLON, 35 CM, BIOPSY: ??? COLONIC MUCOSA WITH FOCAL HYPERPLASTIC CHANGES. C: POLYP, RECTUM, POLYPECTOMY: ??? SESSILE SERRATED ADENOMA. Review of Systems PHQ Score Initial Depression Screen Score: 0 SCORE Physical Exam Vitals & Measurements HR: 78(Peripheral) RR: 18 BP: 124/78 HT: 69 in HT: 175 cm WT: 76 kg WT: 167.2 lb BMI: 24.82 Assessment/Plan 1. Colon polyps (K63.5: Polyp of colon) 1 serrated polyp in the rectum, repeat in 5 years Follow-up No qualifying data available Problem List/Past Medical History Ongoing Colon polyps Screening for malignant neoplasm of colon done Historical No qualifying data Procedure/Surgical History Colonoscopy (12/22/2023), right inguinal hernia repair (02/07/2016), hernia repair as child, History of right hip replacement, left ring finger tendon repair, right ankle fx. Medications celecoxib 200 mg Cap Allergies No Known Allergies Social History Alcohol - Denies Alcohol Use, 01/31/2016 Never., 01/26/2024 Substance Abuse - Denies Substance Abuse, 01/31/2016 Never., 01/26/2024 Tobacco - Denies Tobacco Use, 01/31/2016 Never (less than 100 in lifetime) Tobacco Use:., 01/26/2024 Family History Family history is negative Immunizations Vaccine Date Status influenza virus vaccine, inactivated 01/07/2022 Recorded SARS-CoV-2 (COVID-19) mRNAMUL.[id number] 01/07/2022 Recorded SARS-CoV-2 (COVID-19) mRNA BNT-162b2 vax 02/11/2021 Recorded influenza virus vaccine, inactivated 01/24/2021 Recorded SARS-CoV-2 (COVID-19) mRNA BNT-162b2 vax 06/25/2020 Recorded SARS-CoV-2 (COVID-19) mRNA BNT-162b2 vax 06/03/2020 Recorded influenza virus vaccine, inactivated 01/05/2020 Recorded zoster vaccine, inactivated 08/01/2018 Recorded zoster vaccine, inactivated 04/28/2018 Recorded Normal [facility] Comment on above: Result Comment: Elec tronically Signed By: Duane HARRIS, Elayne Mejias\.br\Date and Time Signed: 01/26/24 09:07 EST Surgical Pathology Reporton 12-27-2023 Surgical Pathology Report [address] [address]- Surgical Pathology Report Collected Date/Time: 12/22/2023 14:14 EDT Pathologist: Barrie HARRIS PhD, Shelli Toney Received Date/Time: 12/23/2023 08:42 EDT Duane HARRIS, Elayne Jewell MD, Elayne Mejias 07 Surgical Pathology Report [...] and rectal polyp are multiple fragments of maers/pink tissue ranging from less than 0.1 cm up to 0.5 cm in greatest dimension. Specimen measures in aggregate 1 x 0.7 x 0.1 cm. It is entirely submitted in one cassette. (DC) DC:[facility] Microscopic Description Microscopic examination performed unless gross only specified. Normal [facility] Comment on above: Performed By: #### [id number] #### [facility] [address] [place] [address] Main OR Intraoperative Recor don 12-23-2023 Main OR Intraoperative Record Main OR Intraoperative Record IntraOp Document Type FT Summary Primary Physician: Elayne Jewell MD Finalized Date/Time: 12/23/23 10:58:27 Pt. Name: FROYLAN HARDY/Sex: 1955 Male Med Rec #: [id number] Physician: Elayne Jewell MD Financial #: [id number] Pt. Type: O Room/Bed: / Admit/Disch: 12/22/23 [...] 1 Entry 2 Entry 3 Case Attendee Yoel Shepherd RN, Lisa Mohan Role Performed Anesthesiologist Service Crew Leader - Primary Scrub - Primary Automotive Parts Specialist Time In 12/22/23 14:00:00 12/22/23 14:00:00 12/22/23 14:00:00 Time Out 12/22/23 14:18:00 12/22/23 14:25:00 12/22/23 14:25:00 Procedure COLONOSCOPY(.) COLONOSCOPY(.) COLONOSCOPY(.) Comments Dr. Louis supervising case Last Modified By: Zain LOMBARDO, Ish Pittman RN, Ish Pires RN 12/22/23 14:25:57 12/22/23 14:25:57 12/22/23 14:25:57 Entry 4 Entry 5 Case Attendee Duane HARRIS, Elayne Murray DNP, TOBACCO SCRAP SIFTER, [facility] Role Performed Surgeon - Primary TOBACCO SCRAP SIFTER Time In 12/22/23 14:00:00 12/22/23 14:17:00 Time [...] of p (more content not included)... Normal [facility] Discharge Instructionson Discharge Instructions Discharge Instruc tions FROYLAN HARDY :1955 Visit Date:12/22/2023 Inpatient Discharge Instructions Your Care Team Admitting Physician - Elayne Jewell MD Referring Physician - Elayne Jewell MD Reason for Your Visit SCREEN FOR [...] Follow Up with Duane HARRIS, Elayne Mejias, [facility], [facility] When: Comments: Office will call to schedule follow up appointment and/or review any pending biopsy results Call for any problems. Where: [address] [place] [address], [address] [address]- [phone] Allergies No Known Allergies Education Materials Colon [...] recommended by your (more content not included)... [facility] Comment on above: Result Comment: Elec tronically Signed By: Ricardo LOMBARDO, Binta\.br\Date and Time Signed: 12/22/23 15:07 EDT Inpatient Patient Summaryon 12-22-2023 Inpatient Patient Summary Inpatient Patient Summary [place] [id number] [facility] Clinical Discharge Instructions PERSON INFORMATION Name: FROYLAN HARDY PHYSICIANS Admitting Physician: Elayne Jewell MD Attending Physician: Elayne Jewell MD PCP: RICHARD RAHMAN DO Discharge Diagnosis: Colon cancer screening Comment: PATIENT EDUCATION INFORMATION Instructions: Medication Leaflets: Follow up: MEDICATION LIST Comment: [facility] Main OR PACU II Recordon Main OR PACU II Record Main OR PACU II R ecord PACU Phase II Document Type FT Summary Primary Physician: Elayne Jewell MD Finalized Date/Time: 12/22/23 15:35:35 Pt. Name: FROYLAN HARDY D.O.B./Sex: 1955 Male Med Rec #: [id number] Physician: Elayne Jewell MD Financial #: [id number] Pt. Type: O Room/Bed: / Admit/Disch: 12/22/23 [...] By: Binta Silva RN 12/22/23 15:35 Normal [facility] Main OR Preoperative Recordo n 12-22-2023 Main OR Preoperative Record Main OR Preoperative Record Holding Area Document Type FT Summary Primary Physician: Elayne Jewell MD Finalized Date/Time: 12/22/23 13:17:19 Pt. Name: FROYLAN HARDY/Sex: 1955 Male Med Rec #: [id number] Physician: Elayne Jewell MD Financial #: [id number] Pt. Type: O Room/Bed: / Admit/Disch: 12/22/23 [...] By: Jana Harrison RN 12/22/23 13:17 Normal [facility] Outpatient Surgery Discharge Instructionon 12-22-2023 Outpatient Surgery Discharge Instruction Outpatient Surgery Discharge Instruction [place] [id number] Patient Discharge Instructions PERSON INFORMATION Name: FROYLAN HARDY Date of : 1955 Current Date: 12/22/2023 15:02:49 PHYSICIANS Admitting Physician: Elayne Jewell MD Discharge Diagnosis: Colon cancer screening FROYLAN [...] NEAREST EMERGENCY ROOM OR CALL 911 SHAHID Wyatt DANIEL G, have received the attached patient [...] to serve you. Thank you for choosing [facility] HERE ARE THE MEDICATION CHANGES THAT OCCURRED DURING YOUR HOSPITAL STAY PATIENT EDUCATION INFORMATION Instructions: Medication Leaflets: Normal [facility] Ambulatory Visit Summaryon 0 12-16-2023 Ambulatory [...] Screen for colon cancer Oral Pickup at [id number] Pharmacy Information [facility][id number]: [address], [place] [id number] [phone] Allergies No Known Allergies Patient Survey You may receive a survey via text or e-mail asking about your office visit. Please share your experience with us by completing your survey. We appreciate your feedback and thank you for choosing us for your care. Graciela [facility] Gastroenterology Office/Clin ic Noteon 12-16-2023 Gastroenterology Office/Clinic Note Gastroenterology Office/Clinic Note Chief Complaint screening HPI Staff This is a 68 year old male who presents today for a screening colonoscopy. Denies Blood Thinners. Denies GLP-1 Agonists. Denies any family history of colon cancer/polyps or IBD. Denies Dysphagia, abdominal pain, constipation, diarrhea or bloody stools. previous EGD/Colonoscopy- 10 years [facility]. Denies recent imaging or labs. History of [...] E&M of New Patient Low 30-44 Min [id number] E&M of New Patient Moderate 45-59 Min [id number] Follow-up No qualifying data available Problem List/Past [...] Family History Family history is negative Normal [facility] Comment on above: Result Comment: Elec tronically Signed By: Duane HARRIS, Elayne Mejias\.br\Date and Time Signed: 12/16/23 13:17 EDT Basophils Auto (Bld) [#/Vol] Ordered By: Corbin Mckinney on 07-01-2021 Basophils (Bld) [#/Vol] 0.0 10*3/uL 0.0-0.2 [facility] Basophils/100 WBC Auto (Bld) Ordered By: Corbin Mckinney on 07-01-2021 Basophils/100 WBC (Bld) 0.5 % [facility] Blood hemoglobin measurement (mass/volume)Ordered By: Corbin Mckinney on 07-01-2021 Hemoglobin (Bld) [Mass/Vol] 14.5 g/dL 13.0-17.0 [facility] Blood leukocytes automated c ount (number/volume)Ordered By: Corbin Mckinney on 07-01-2021 WBC (Bld) [#/Vol] 4.8 10*3/uL 4.5-11.0 [facility] Body fluid albumin measureme nt (mass/volume)Ordered By: Corbin Mckinney on 07-01-2021 Albumin (Body fld) [Mass/Vol] 4.2 g/dL 3.2-5.5 [facility] Cholesterol [Mass/volume] in Serum or PlasmaOrdered By: Corbin Mckinney on 07-01-2021 Cholesterol [Mass/Vol] 198 mg/dL 140-200 [facility] Comment on above: Chol less than 200 m g/dl low riskChol 201-239 mg/dl borderline riskChol 240 mg/dl and greater high risk Cholesterol in LDL Calc [Mas s/Vol]Ordered By: Corbin Mckinney on 07-01-2021 Cholesterol in LDL [Mass/Vol] 123 mg/dL 0-100 [facility] Comment on above: LDL ATP III CLASSIFI CATIONLDL less than 100 mg/dL OptimalLDL 100-129 mg/dL Near or above optimalLDL 130-159 mg/dL Borderline highLDL 160-189 mg/dL HighLDL greater than 189 mg/dL Very high Cholesterol in VLDL Calc [Ma ss/Vol]Ordered By: Corbin Mckinney on 07-01-2021 Cholesterol in VLDL [Mass/Vol] 24 mg/dL [facility] Complete Blood Count no refl exon 07-01-2021 Basophils (Bld) [#/Vol] 0.0 10*3/uL Normal 0.0-0.2 [facility] Comment on above: Result Comment: PERF ORMED BY: [place] [address] PATHOLOGIST CAMPUS MANAGER COLE MELENDEZ M.D. Performed By: #### C MP, LIPID, CHC CBC #### [facility] [address] [place] [address] [place] Basophils/100 WBC (Bld) 0.5 % Normal . [facility] Comment on above: Performed By: #### C MP, LIPID, CHC CBC #### [facility] [address] [place] [address] [place] Eosinophils (Bld) [#/Vol] 0.1 10*3/uL Normal 0.0-0.45 [facility] Comment on above: Performed By: #### C MP, LIPID, CHC CBC #### [facility] [address] [place] [address] [place] Eosinophils/100 WBC (Bld) 1.3 % Normal . [facility] Comment on above: Performed By: #### C MP, LIPID, CHC CBC #### [address] Erythrocyte distribution width (RBC) [Ratio] 13.4 % Normal 12.0-14.8 [facility] Comment on above: Performed By: #### C MP, LIPID, CHC CBC #### [address] Hematocrit (Bld) [Volume fraction] 42.1 % Normal 38.8-50.0 [facility] Comment on above: Performed By: #### C MP, LIPID, CHC CBC #### [address] Hemoglobin (Bld) [Mass/Vol] 14.5 g/dL Normal 13.0-17.0 [facility] Comment on above: Performed By: #### C MP, LIPID, CHC CBC #### [address] Lymphocytes (Bld) [#/Vol] 1.3 10*3/uL Normal 1.00-4.8 [facility] Comment on above: Performed By: #### C MP, LIPID, CHC CBC #### [address] Lymphocytes/100 WBC (Bld) 26.8 % Normal . [facility] Comment on above: Performed By: #### C MP, LIPID, CHC CBC #### [address] MCH (RBC) [Entitic mass] 32.4 pg Normal 27.5-35.2 [facility] Comment on above: Performed By: #### C MP, LIPID, CHC CBC #### [address] MCV (RBC) [Entitic vol] 93.8 fL Normal 83.5-101 [facility] Comment on above: Performed By: #### C MP, LIPID, CHC CBC #### [address] Mean Corpuscular HGB Conc 34.5 g/dL Normal 32.5-35.6 [facility] Comment on above: Performed By: #### C MP, LIPID, CHC CBC #### [facility] [address] [place] [address] [place] Monocytes (Bld) [#/Vol] 0.4 10*3/uL Normal 0.0-0.8 [facility] Comment on above: Performed By: #### C MP, LIPID, CHC CBC #### [facility] [address] [place] [address] [place] Monocytes/100 WBC (Bld) 7.7 % Normal . [facility] Comment on above: Performed By: #### C MP, LIPID, CHC CBC #### [facility] [address] Neutrophils (Bld) [#/Vol] 3.0 10*3/uL Normal 1.8-7.7 [facility] Comment on above: Performed By: #### C MP, LIPID, CHC CBC #### [facility] [address] [place] [address] [place] Neutrophils/100 WBC (Bld) 63.7 % Normal . [facility] Comment on above: Performed By: #### C MP, LIPID, CHC CBC #### [facility] [address] [place] [address] [place] Nucleated RBC/100 WBC (Bld) [Ratio] 0.1 % Normal 0-0.5 [facility] Comment on above: Performed By: #### C MP, LIPID, CHC CBC #### [facility] [address] [place] [address] [place] Platelet mean volume (Bld) [Entitic vol] 7.9 fL Normal 6.6-10.1 [facility] Comment on above: Performed By: #### C MP, LIPID, CHC CBC #### [facility] [address] [place] [address] [place] Platelets (Bld) [#/Vol] 240 10*3/uL Normal 150-450 [facility] Comment on above: Performed By: #### C MP, LIPID, CHC CBC #### [facility] [address] RBC (Bld) [#/Vol] 4.49 10*6/uL Normal 3.90-5.60 [facility] Comment on above: Performed By: #### C MP, LIPID, CHC CBC #### [facility] [address] WBC (Bld) [#/Vol] 4.8 10*3/uL Normal 4.5-11.0 [facility] Comment on above: Performed By: #### C MP, LIPID, CHC CBC #### [facility] [address] [place] [address] Comprehensive Metabolic Pane jimbo 07-01-2021 Albumin [Mass/Vol] 4.2 g/dL Normal 3.2-5.5 [facility] Comment on above: Performed By: #### C MP, LIPID, [facility] CBC #### [address] Albumin/Globulin [Mass ratio] 1.7 {ratio} Normal [facility] Comment on above: Performed By: #### C MP, LIPID, [facility] CBC #### [address] ALP [Catalytic activity/Vol] 49 U/L Normal 32-92 [facility] Comment on above: Performed By: #### C MP, LIPID, [facility] CBC #### [facility] [address] [place] [address] ALT [Catalytic activity/Vol] 16 U/L Normal 10-60 [facility] Comment on above: Performed By: #### C MP, LIPID, CHC CBC #### [facility] [address] [place] [address] AST [Catalytic activity/Vol] 21 U/L Normal 10-42 [facility] Comment on above: Performed By: #### C MP, LIPID, CHC CBC #### [facility] [address] [place] [address] Bilirubin [Mass/Vol] 0.7 mg/dL Normal 0.3-1.2 [facility] Comment on above: Performed By: #### C MP, LIPID, CHC CBC #### [facility] [address] Calcium [Mass/Vol] 9.6 mg/dL Normal 8.2-10.2 [facility] Comment on above: Performed By: #### C MP, LIPID, CHC CBC #### [facility] [address] Chloride [Moles/Vol] 104 mmol/L Normal 95-114 [facility] Comment on above: Performed By: #### C MP, LIPID, CHC CBC #### [address] CO2 [Moles/Vol] 23.7 mmol/L Normal 22.0-30.0 [facility] Comment on above: Performed By: #### C MP, LIPID, CHC CBC #### [address] Creatinine [Mass/Vol] 0.92 mg/dL Normal 0.64-1.27 [facility] Comment on above: Performed By: #### C MP, LIPID, CHC CBC #### [address] Estimated GFR ( Rebekah > 60 [facility] Comment on above: Result Comment: GFR estimated reference range: According to KDOQI guidelines, <60 ml/min/1.73m2 is sufficient to diagnose a patient with chronic kidney disease. Performed By: #### C MP, LIPID, CHC CBC #### [address] Estimated GFR (Non- Am > 60 [facility] Comment on above: Performed By: #### C MP, LIPID, CHC CBC #### [address] Globulin (S) [Mass/Vol] 2.5 g/dL [facility] Comment on above: Performed By: #### C MP, LIPID, CHC CBC #### [address] Glucose [Mass/Vol] 111 mg/dL High 70-100 [facility] Comment on above: Result Comment: [facility][note 3] Glucose Reference Range is dependent on time and content of last meal. Glucose of more than 200 mg/dL in a nonstressed, ambulatory subject supports the diagnosis of Diabetes Mellitus. ADA recommended reference range Performed By: #### C MP, LIPID, CHC CBC #### [facility] [address] Potassium [Moles/Vol] 4.4 mmol/L Normal 3.5-5.1 [facility] Comment on above: Performed By: #### C MP, LIPID, CHC CBC #### [facility] [address] Protein [Mass/Vol] 6.7 g/dL Normal 6.1-7.9 [facility] Comment on above: Performed By: #### C MP, LIPID, CHC CBC #### [facility] [address] Sodium [Moles/Vol] 138 mmol/L Normal 136-146 [facility] Comment on above: Performed By: #### C MP, LIPID, CHC CBC #### [facility] [address] [place] [address] [place] Urea nitrogen [Mass/Vol] 19 mg/dL Normal 9-23 [facility] Comment on above: Performed By: #### C MP, LIPID, CHC CBC #### [facility] [address] [place] [address] [place] Creatinine and Glomerular fi ltration rate.predicted panel (S/P/Bld)Ordered By: Corbin Mckinney on 07-01-2021 Creatinine [Mass/Vol] 0.92 mg/dL 0.64-1.27 [facility] Eosinophils Auto (Bld) [#/Vo l]Ordered By: Corbin Mckinney on 07-01-2021 Eosinophils (Bld) [#/Vol] 0.1 10*3/uL 0.0-0.45 [facility] Eosinophils/100 WBC Auto (Bl d)Ordered By: Corbin Mckinney on 07-01-2021 Eosinophils/100 WBC (Bld) 1.3 % [facility] Erythrocyte distribution wid th Auto (RBC) [Ratio]Ordered By: Corbin Mckinney on 07-01-2021 Erythrocyte distribution width (RBC) [Ratio] 13.4 % 12.0-14.8 [facility] Estimated glomerular filtrat ion rate (GFR) non- AmericanOrdered By: Corbin Mckinney on 07-01-2021 GFR/1.73 sq M.predicted among non-blacks MDRD (S/P/Bld) [Vol rate/Area] > 60 mL/Min [facility] Globulin Calc (S) [Mass/Vol] Ordered By: Corbin Mckinney on 07-01-2021 Globulin (S) [Mass/Vol] 2.5 g/dL [facility] Hematocrit Auto (Bld) [Volum e fraction]Ordered By: Corbin Mckinney on 07-01-2021 Hematocrit (Bld) [Volume fraction] 42.1 % 38.8-50.0 [facility] Laboratory - Hematology and Cell countsOrdered By: Corbin Mckinney on 07-01-2021 Nucleated RBC/100 WBC (Bld) [Ratio] 0.1 % 0-0.5 [facility] Lipid Panelon 07-01-2021 Cholesterol [Mass/Vol] 198 mg/dL Normal 140-200 [facility] Comment on above: Result Comment: Chol less than 200 mg/dl low risk Chol 201-239 mg/dl borderline risk Chol 240 mg/dl and greater high risk Performed By: #### C MP, LIPID, [facility] CBC #### [facility] [address] [place] [address] [place] Cholesterol in HDL [Mass/Vol] 50 mg/dL Normal 29-71 [facility] Comment on above: Result Comment: HDL CHOL ATP-III CLASSIFICATION Cardiovascular Risk HDL > or equal to 60 mg/dL LOW HDL < 40 mg/dL HIGH Performed By: #### C MP, LIPID, [facility] CBC #### [facility] [address] [place] [address] [facility] Cholesterol.total/Chol esterol in HDL [Mass ratio] 4.0 {ratio} Normal <5.0 [facility] Comment on above: Result Comment: PERF ORMED BY: [place] [address] PATHOLOGIST CAMPUS MANAGER COLE MELENDEZ M.D. Performed By: #### C MP, LIPID, [facility] CBC #### [address] LDL Cholesterol,Calculated 123 mg/dL High 0-100 [facility] Comment on above: Result Comment: LDL ATP III CLASSIFICATION LDL less than 100 mg/dL Optimal LDL 100-129 mg/dL Near or above optimal LDL 130-159 mg/dL Borderline high LDL 160-189 mg/dL High LDL greater than 189 mg/dL Very high Performed By: #### C MP, LIPID, [facility] CBC #### [address] Triglyceride w/Reflex 124 mg/dL Normal 35-149 [facility] Comment on above: Result Comment: TRIG ATP III CLASSIFICATION TRIG less than 150 mg/dL Normal TRIG 150-199 mg/dL Borderline high TRIG 200-500 mg/dL High TRIG greater than 500 mg/dL Very high Standard traceable to the Center for Disease Conrtrol and Prevention (CDC) test method. Performed By: #### C MP, LIPID, [facility] CBC #### [facility] [address] [place] [address] VLDL CHOLESTEROL 24 mg/dL Normal [facility] Comment on above: Performed By: #### C MP, LIPID, [facility] CBC #### [address] Lymphocytes Auto (Bld) [#/Vo l]Ordered By: Corbin Mckinney on 07-01-2021 Lymphocytes (Bld) [#/Vol] 1.3 10*3/uL 1.00-4.8 [facility] Lymphocytes/100 WBC Auto (Bl d)Ordered By: Corbin Mckinney on 07-01-2021 Lymphocytes/100 WBC (Bld) 26.8 % [facility] MCH Auto (RBC) [Entitic mass ]Ordered By: Corbin Mckinney on 07-01-2021 MCH (RBC) [Entitic mass] 32.4 pg 27.5-35.2 [facility] MCHC Auto (RBC) [Mass/Vol]Or dered By: Corbin Mckinney on 07-01-2021 MCHC (RBC) [Mass/Vol] 34.5 g/dL 32.5-35.6 [facility] MCV Auto (RBC) [Entitic vol] Ordered By: Corbin Mckinney on 07-01-2021 MCV (RBC) [Entitic vol] 93.8 fL 83.5-101 [facility] Monocytes Auto (Bld) [#/Vol] Ordered By: Corbin Mckinney on 07-01-2021 Monocytes (Bld) [#/Vol] 0.4 10*3/uL 0.0-0.8 [facility] Monocytes/100 WBC Auto (Bld) Ordered By: Corbin Mckinney on 07-01-2021 Monocytes/100 WBC (Bld) 7.7 % [facility] Neutrophils Auto (Bld) [#/Vo l]Ordered By: Corbin Mckinney on 07-01-2021 Neutrophils (Bld) [#/Vol] 3.0 10*3/uL 1.8-7.7 [facility] Neutrophils/100 WBC Auto (Bl d)Ordered By: Corbin Mckinney on 07-01-2021 Neutrophils/100 WBC (Bld) 63.7 % [facility] No Panel InformationOrdered By: Corbin Mckinney on 07-01-2021 Estimated GFR () > 60 mL/Min [facility] Comment on above: GFR estimated refere nce range: According to KDOQI guidelines, <60 ml/min/1.73m2 is sufficient to diagnose a patient with chronic kidney disease. Pharmacy Creatinine Clearance (Chem N/A [facility] Platelet mean volume Auto (B ld) [Entitic vol]Ordered By: Corbin Mckinney on 07-01-2021 Platelet mean volume (Bld) [Entitic vol] 7.9 fL 6.6-10.1 [facility] Platelets Auto (Bld) [#/Vol] Ordered By: Corbin Mckinney on 07-01-2021 Platelets (Bld) [#/Vol] 240 10*3/uL 150-450 [facility] Protein [Mass/volume] in Ser um or PlasmaOrdered By: Corbin Mckinney on 07-01-2021 Protein [Mass/Vol] 6.7 g/dL 6.1-7.9 [facility] RBC Auto (Bld) [#/Vol]Ordere d By: Corbin Mckinney on 07-01-2021 RBC (Bld) [#/Vol] 4.49 10*6/uL 3.90-5.60 [facility] Serum or plasma alanine fiore otransferase measurement without P-5'-P (enzymatic activiOrdered By: Corbin Mckinney on 07-01-2021 ALT No additional P-5'-P [Catalytic activity/Vol] 16 U/L 10-60 [facility] Serum or plasma albumin/glob ulin mass ratioOrdered By: Corbin Mckinney on 07-01-2021 Albumin/Globulin [Mass ratio] 1.7 {ratio} [facility] Serum or plasma alkaline crow sphatase measurement (enzymatic activity/volume)Ordered By: Corbin Mckinney on 07-01-2021 ALP [Catalytic activity/Vol] 49 U/L 32-92 [facility] Serum or plasma aspartate am inotransferase measurement (enzymatic activity/volume)Ordered By: Corbin Mckinney on 07-01-2021 AST [Catalytic activity/Vol] 21 U/L 10-42 [facility] Serum or plasma calcium carlos manuel urement (mass/volume)Ordered By: Corbin Mckinney on 07-01-2021 Calcium [Mass/Vol] 9.6 mg/dL 8.2-10.2 [facility] Serum or plasma chloride rafa surement (moles/volume)Ordered By: Corbin Mckinney on 07-01-2021 Chloride [Moles/Vol] 104 mmol/L 95-114 [facility] Serum or plasma glucose carlos manuel urement (mass/volume)Ordered By: Corbin Mckinney on 07-01-2021 Glucose [Mass/Vol] 111 mg/dL 70-100 [facility] Comment on above: ADA recommended refe rence rangeRandom Glucose Reference Range is dependent on time and content of last meal. Glucose of more than 200 mg/dL in a nonstressed, ambulatory subject supports the diagnosis of Diabetes Mellitus. Serum or plasma high density lipoprotein (HDL) cholesterol measurementOrdered By: Corbin Mckinney on 07-01-2021 Cholesterol in HDL [Mass/Vol] 50 mg/dL 29- [facility] Comment on above: HDL CHOL ATP-III CLA SSIFICATION Cardiovascular RiskHDL > or equal to 60 mg/dL LOWHDL < 40 mg/dL HIGH Serum or plasma potassium me asurement (moles/volume)Ordered By: Corbin Mckinney on 07-01-2021 Potassium [Moles/Vol] 4.4 mmol/L 3.5-5.1 [facility] Serum or plasma sodium measu rement (moles/volume)Ordered By: Corbin Mckinney on 07-01-2021 Sodium [Moles/Vol] 138 mmol/L 136-146 [facility] Serum or plasma total biliru bin measurement (mass/volume)Ordered By: Corbin Mckinney on 07-01-2021 Bilirubin [Mass/Vol] 0.7 mg/dL 0.3-1.2 [facility] Serum or plasma total carbon dioxide measurement (moles/volume)Ordered By: Corbin Mckinney on 07-01-2021 CO2 [Moles/Vol] 23.7 mmol/L 22.0-30.0 [facility] Serum or plasma total choles terol/high density lipoprotein (HDL) cholesterol mass ratOrdered By: Corbin Mckinney on 07-01-2021 Cholesterol.total/Chol esterol in HDL [Mass ratio] 4.0 {ratio} [facility] Serum or plasma urea nitroge n measurement (mass/volume)Ordered By: Corbin Mckinney on 07-01-2021 Urea nitrogen [Mass/Vol] 19 mg/dL 9- [facility] Triglyceride [Mass/volume] i n Serum or PlasmaOrdered By: Corbin Mckinney on 07-01-2021 Triglyceride [Mass/Vol] 124 mg/dL 35-149 [facility] Comment on above: TRIG ATP III CLASSIF ICATIONTRIG less than 150 mg/dL NormalTRIG 150-199 mg/dL Borderline highTRIG 200-500 mg/dL High TRIG greater than 500 mg/dL Very highStandard traceable to the Center for Disease Conrtrol and Prevention (CDC) test method. XR chest 2V*on 07-01-2021 XR chest 2V* [facility] [address] [place] [address] XRay Report Signed Patient: Froylan Hardy MR#: [id number] : 1955 Acct:[id number] Age/Sex: 66 / M ADM Date: 07/01/21 Loc: [place] Room: Type: [facility] Attending Dr: Corbin Mckinney Jr, DO Ordering [...] 10:06 AM Dictation Location: RADIO-PC-13 Transcribed By: [facility] 07/01/21 1006 Dictated By: Zeinab Reyes MD 07/01/21 1005 Signed By: 07/01/21 1006 Normal [facility] Vital Signs Date Time Vital Sign Value Performing Clinician Facility 01-26-2024 08:22-0500 Blood Pressure Location [employer] [facility] 01-26-2024 08:22-0500 Diastolic blood pressure 78 mm[Hg] Holly Sarmini [facility] 01-26-2024 08:22-0500 Heart rate 78 /min Holly Sarmini [facility] 01-26-2024 08:22-0500 Respiratory rate 18 /min Holly Sarmini [facility] 01-26-2024 08:22-0500 Systolic blood pressure 124 mm[Hg] Holly Sarmini [facility] 12-24-2023 09:15-0400 Body mass index (BMI) [Ratio] 24.7 kg/m2 [facility] 12-24-2023 09:15-0400 Diastolic blood pressure 85 mm[Hg] [facility] 12-24-2023 09:15-0400 Systolic blood pressure 135 mm[Hg] [facility] 12-24-2023 08:57-0400 Body height 175.26 cm [facility] 12-24-2023 08:57-0400 Body weight 75.92 kg [facility] 12-24-2023 08:57-0400 Respiratory rate 12 /min [facility] 12-22-2023 15:10-0400 Blood Pressure Location Holly Sarmini [facility] 12-22-2023 15:10-0400 Diastolic blood pressure 85 mm[Hg] Holly Sarmini [facility] 12-22-2023 15:10-0400 Heart rate 75 /min Holly Sarmini [facility] 12-22-2023 15:10-0400 Mean blood pressure 105 mm[Hg] Holly Sarmini [facility] 12-22-2023 15:10-0400 Respiratory rate 16 /min Holly Sarmini [facility] 12-22-2023 15:10-0400 SaO2% (BldA) [Mass fraction] 97 % Holly Sarmini [facility] 12-22-2023 15:10-0400 Systolic blood pressure 144 mm[Hg] Holly Sarmini [facility] 12-22-2023 14:55-0400 Blood Pressure Location Holly Sarmini [facility] 12-22-2023 14:55-0400 Diastolic blood pressure 101 mm[Hg] Holly Sarmini [facility] 12-22-2023 14:55-0400 Heart rate 82 /min Holly Sarmini [facility] 12-22-2023 14:55-0400 Mean blood pressure 108 mm[Hg] Holly Sarmini [facility] 12-22-2023 14:55-0400 Respiratory rate 16 /min Holly Sarmini [facility] 12-22-2023 14:55-0400 SaO2% (BldA) [Mass fraction] 94 % Holly Sarmini [facility] 12-22-2023 14:55-0400 Systolic blood pressure 122 mm[Hg] Holly Sarmini [facility] 12-22-2023 14:40-0400 Blood Pressure Location Holly Sarmini [facility] 12-22-2023 14:40-0400 Diastolic blood pressure 82 mm[Hg] Holly Sarmini [facility] 12-22-2023 14:40-0400 Heart rate 82 /min Holly Sarmini [facility] 12-22-2023 14:40-0400 Mean blood pressure 95 mm[Hg] Holly Sarmini [facility] 12-22-2023 14:40-0400 Respiratory rate 19 /min Holly Sarmini [facility] 12-22-2023 14:40-0400 SaO2% (BldA) [Mass fraction] 93 % Holly Sarmini [facility] 12-22-2023 14:40-0400 Systolic blood pressure 120 mm[Hg] Holly Sarmini [facility] 12-22-2023 14:35-0400 Respiratory rate 16 /min Holly Sarmini [facility] 12-22-2023 14:30-0400 Respiratory rate 21 /min Holly Sarmini [facility] 12-22-2023 14:26-0400 Body temperature 97.88 [degF] Holly Sarmini [facility] 12-22-2023 14:20-0400 Respiratory rate 24 /min Holly Sarmini [facility] 12-22-2023 13:29-0400 Body temperature 97.7 [degF] Holly Sarmini [facility] 12-16-2023 12:36-0400 Diastolic blood pressure 73 mm[Hg] Holly Sarmini [facility] 12-16-2023 12:36-0400 Heart rate 89 /min Holly Sarmini [facility] 12-16-2023 12:36-0400 Systolic blood pressure 126 mm[Hg] Holly Sarmini [facility] 12-16-2023 12:32-0400 Blood Pressure Location Holly Sarmini [facility] 12-16-2023 12:32-0400 Respiratory rate 16 /min Holly Sarmini [facility] Encounters Encounter Date Encounter Type Care Provider Facility Start: 01-26-2024 End: 01-26-2024 ambulatory Holly Talal Sarmini Facility:[facility] Start: 01-26-2024 End: 01-26-2024 Patient encounter procedure Holly Talal Sarmini [facility] Start: 12-24-2023 End: 12-24-2023 ambulatory [facility] Work Phone: Start: 12-24-2023 End: 12-24-2023 Patient encounter procedure [facility] Work Phone: Start: 12-22-2023 End: 12-22-2023 ambulatory Holly Talal Sarmini Facility[facility] Start: 12-22-2023 End: 12-22-2023 Patient encounter procedure Holly Talal Sarmini [facility] Start: 12-16-2023 End: 12-16-2023 ambulatory Holly Talal Sarmini Facility:[facility] Start: 12-16-2023 End: 12-16-2023 Patient encounter procedure Holly Talal Sarmini [facility] Start: 12-02-2023 ambulatory Hloly Sarmini Facili ty:[facility] Start: 07-01-2021 End: 07-01-2021 Departed Referred DO Corbin Mckinney Jr Work Phone: [facility] [address] Start: 03-17-2021 End: 03-18-[address] NONE LISTED REQUEST Facility:[facility] Start: 06-25-2020 End: 06-26-[address] NONE LISTED REQUEST Facility:[facility] Start: 06-03-2020 End: 06-04-[address] GIVNES LISTED REQUEST Facility: Start: 05-31-2017 Ambulatory PAULETTE CRAIN Facility:1 532 Start: 05-31-2017 Ambulatory Facility:9 507 Procedures Date Procedure Procedure Detail Performing Clinician Start: 12-22-2023 Colonoscopy Elayne jackson Start: 07-01-2021 Plain chest X-ray DO Ed acosta Radatz Jr Work Phone: Start: 03-17-[address] GIVENS L ISTED REQUEST Comment on above: Performed By: #### D ATPSA #### [facility] [address] [place] [address] Dr. Shelli Sood Start: 02-07-2016 right inguinal herni a repair Holly Sarmini hernia repair as child 1 Muh ammad Sarmini Comment on above: unknown side History of right hip replacement Holly Sarmini left ring finger ten don repair Holly Sarmini right ankle fx Holly Sarm ini Plan of Treatment Date Care Activity Detail Author [facility] Immunizations Immunization Date Immunization Notes Care Provider Fa cility 01-07-2022 influenza virus vaccine, unspecified formulation Holly Sarmini [facility] 01-07-2022 SARS-CoV-2 (COVID-19 ) [id number] Holly Sarmini [facility] 02-11-2021 SARS-CoV-2 (COVID-19 ) mRNA BNT-162b2 vax Holly Sarmini [facility] 01-24-2021 influenza virus vaccine, unspecified formulation Holly Sarmini [facility] 06-25-2020 SARS-CoV-2 (COVID-19 ) mRNA BNT-162b2 vax Holly Sarmini [facility] 06-03-2020 SARS-CoV-2 (COVID-19 ) mRNA BNT-162b2 vax Holly Sarmini [facility] 01-05-2020 influenza virus vaccine, unspecified formulation Holly Sarmini [facility] 08-01-2018 zoster vaccine recombinant Holly Sarmini [facility] 04-28-2018 zoster vaccine recombinant Holly Sarmini [facility] Payers Date Payer Category Payer Medicare [id number] 2019 Private Health Insurance [id number] 1957 Self-pay [id number] 1955 Unknown [id number] [id number] 1955 Unknown [id number] 2.16.8 [id number] 1955 Unknown [id number] 2.16.8 [id number] 1955 Unknown [id number] 2.16.8 [id number] Medicare Medicare [id number] Unknown FROYLAN HARDY Unknown [id number] 2.16.84 [id number] Unknown [id number] 2.16.84 [id number] Unknown [id number] 2.16.84 [id number] Social History Date Type Detail Facility Tobacco smoking stat [facility] Unknown if ever smoked [facility] Work Phone: Start: 1955 Sex Assigned At Male [facility] Start: 12-16-2023 End: 01-26-2024 Tobacco smoking status Never smoked tobacco (finding) [facility] Tobacco smoking status Never [facility] Sex Assigned At Male [facility] Functional Status Date Assessment Result Facility 01-26-2024 Functional Status N/A [facility] 12-22-2023 Functional Status N/A [facility] 12-16-2023 Functional Status N/A [facility] Clinical Notes 12-22-2023 Note Date [...] hard liquor (44 mL). General instructions Take lhdw-pfv-mkpbfuz and prescription medicines only as told by [...] provider. Document Revised: 06/26/2020 Document Reviewed: 06/26/2020 [employer] Patient Education 2023 [employer]. 12/22/2023 15:03:35 Colonoscopy, Care After Surgery Salam [...] get enough exercise. You smoke. You take npcu-ozt-sztnpod pain medicines. You have a family history [...] Follow these instructions at home: Medicines Take wkgr-mrk-koqhgtt and prescription medicines only as told by your provider. If told, take a fiber supplement or probiotic. Managing constipation Your condition may cause constipation. To prevent or treat constipation, you may need to: Drink enough fluid to keep your pee (urine) pale yellow. Take uqvo-qzg-yhspojc or prescription medicines. Eat foods that are [...] provider. Document Revised: 12/03/2022 Document Reviewed: 12/03/2022 [employer] Patient Education 2023 [employer]. 12/22/2023 15:03:20 Hemorrhoids, Aamg-yk-Xehj Hemorrhoids Hemorrhoids are swollen veins that may [...] Follow these instructions at home: Medicines Take csnz-uge-xwddwte and prescription medicines only as told by [...] provider. Document Revised: 11/18/2022 Document Reviewed: 11/18/2022 [employer] Patient Education 2023 [employer]. Follow Up Care 12/16/2023 13:40:15 With:Duane HARRIS, ANUJA Taylor, [facility] Address: [address] [place] [address], [address] [address] [phone] When: Unknown Comments:Office will call to schedule follow up appointment and/or review any pending biopsy resultsCall for any problems. [facility] 12-22-2023 Note Progress Note-Physic lilo Patient: FROYLAN [...] family history is negative. Procedure history: Colonoscopy ([id number]) on 12/22/2023 at 68 Years. right inguinal hernia repair on 02/07/2016 at 60 Years. History of right hip replacement ([id number]). right ankle fx. left ring finger tendon [...] 84 mmHg mmHg (more content not included)... [facility] Comment on above: Result Comment: Elec tronically Signed By: Carlitos Louis MD\.br\Date and Time Signed: 12/22/23 16:16 EDT 12-22-2023 Note Progress Note-Physic lilo Patient: FROYLAN HARDY Age: 68 years Sex: Male : 1955 Associated Diagnoses: None Author: Carlitos Louis MD Postoperative Information Postoperative disposition: Postoperative disposition: To PACU. Optimetrix number: Optimetrix number [id number]. Anesthetic utilized: General. Health Status Allergies: Allergic [...] when meets criteria ( To home ). [facility] Comment on above: Result Comment: Elec [...] exercise. ? You smoke. ? You take sqvl-cmf-dmnszae pain medicines. ? You have a family [...] these instructions at home: Medicines ? Take axfw-vfz-qcxkgpk and prescription medicines only as told by your provider. ? If told, take a fiber supplement or probiotic. Managing constipation Your condition may cause constipation. To prevent or treat constipation, you may need to: ? Drink enough fluid to keep your pee (urine) pale yellow. ? Take yxzs-mai-aurodfe or prescription medicines. ? Eat foods that [...] provider. Document Orly (more content not included)... [facility] 12-22-2023 Note Endoscopic Procedure Report - Other Patient: FROYLAN HARDY Age: 68 years Sex: Male : 1955 Associated Diagnoses: None Author: Elayne Jewell MD Pre-Procedure Procedure Date 12/22/2023 14:24:00 . Procedure Type: Colonoscopy with removal of tumor(s), polyp(s), or other lesion(s) by cold snare technique. Procedure provider Performed by Elayne Jewell MD. Current history and physical Documented on chart. right inguinal hernia repair on 02/07/2016 at 60 Years. History of right hip replacement ([id number]). right ankle fx. left ring finger tendon repair. hernia repair as child. Comments: 01/31/2016 8:20 MICHELLE Chapin RN, [facility] unknown side. Past Medical History No active or resolved past medical history items have been selected or recorded.. reviewed. Family History Entire family history is negative.. reviewed. Procedure History right inguinal hernia repair on 02/07/2016 at 60 Years. History of right hip replacement ([id number]). right ankle fx. left ring finger tendon [...] Normal examined terminal ileum Images Procedure images: Rec1_hd_video_2023____ 35_991.jpg Rec1_hd_video_2023___32_ 24_849.jpg Rec1_hd_video___ 02_595.jpg Rec1_hd_video__30_ 25_257.jpg Rec1_hd_video__30_ 11_415.jpg Rec1_hd_video___ 58_249.jpg Rec1_hd_video___ 47_991.jpg Rec1_hd_video___ 37_661.jpg Rec1_hd_video___ 44_572.jpg Rec1_hd_video___ 24_316.jpg Rec1_hd_video___ 01_815.jpg Rec1_hd_video___ 13_217.jpg Rec1_hd_video__19_ 43_549.jpg Rec1_hd_video___ 58_460.jpg Rec1_hd_video___ 47_832.jpg Rec1_hd_video___ 29_315.jpg Rec1_hd_video___ 24_069.jpg . Post-Procedure Complications: none. Estimated blood [...] medications, Avoid NSAIDs. (more content not included)... [facility] Comment on above: Result Comment: Elec tronically Signed By: Duane HARRIS, Elayne Mejias\.br\Date and Time Signed: 12/22/23 14:27 EDT Other Comment: Noreen schulte Attachment - attachment storage system not supported [id number] Can be viewed in source system Missing Attachment - attachment storage system not supported [id number] Can be viewed in source system Missing Attachment - attachment storage system not supported [id number] Can be viewed in source system Missing Attachment - attachment storage system not supported [id number] Can be viewed in source system Missing Attachment - attachment storage system not supported [id number] Can be viewed in source system Missing Attachment - attachment storage system not supported [id number] Can be viewed in source system Missing Attachment - attachment storage system not supported [id number] Can be viewed in source system Missing Attachment - attachment storage system not supported [id number] Can be viewed in source system Missing Attachment - attachment storage system not supported [id number] Can be viewed in source system Missing Attachment - attachment storage system not supported [id number] Can be viewed in source system Missing Attachment - attachment storage system not supported [id number] Can be viewed in source system Missing Attachment - attachment storage system not supported [id number] Can be viewed in source system Missing Attachment - attachment storage system not supported [id number] Can be viewed in source system Missing Attachment - attachment storage system not supported [id number] Can be viewed in source system Missing Attachment - attachment storage system not supported [id number] Can be viewed in source system Missing Attachment - attachment storage system not supported [id number] Can be viewed in source system Missing Attachment - attachment storage system not supported [id number] Can be viewed in source system 10-02-2024 Evaluation + Plan note Extrac nancy from: Title:ANES Pre-operative Note 2022 Author:Carlitos Jones Date:12/22/23 Plan [place] [employer] (ASA) physical status classification: Class I. Anesthetic Preoperative Plan: Anesthesia General. Extracted from: Title:ANES Post-operative Note---General Author: Carlitos Louis MD Date:12/22/23 Plan Transfer/Discharge: Transfer/Discharge Discharge when meets criteria ( To home ). Extracted from: Title:1Preop H&P Author:Elayne Jewell MD Date:12/22/23 Impression and Plan Impression: screening colon cancer Plan: - Colonoscopy [facility] 10-02-2024 NoteHistory and Physical Patient: FROYLAN HARDY Age: 68 years Sex: Male : 1955 Associated Diagnoses: None Author: Elayne Jewell MD Preoperative Information Indication for procedure and diagnosis: [...] 60 Years. History of right hip replacement ([id number]). right ankle fx. left ring finger tendon [...] (DEC 21:) Resp Rate 19 br/min (DEC 21) SBP 127 mmHg (DEC 21:) DBP 89 mmHg (DEC 21) Weight 78.2 kg (DEC 21:) BMI 25.48 (DEC 21:) General: in Nad Abdomen: Soft, NTND Impression and Plan Impression: screening colon cancer [facility]:Result Comment: Electronically Signed By: Duane HARRIS, Elayne Mejias\.br\Date and Time Signed: 12/22/23 13:57 EDTEvaluation + Plan note Future Appointments Appointment Date:12/22/2023 02:00:00 PM Scheduled Provider: Location:[facility] Appointment Type:Surgery FT [facility] Evaluation noteNo assessment information available [facility] Work Phone: Evaluation note* Diagnosis Onset Date Resolution Status Screening for colon cancer a cute Screening PSA (prostate specific antigen) acute [facility] Work Phone: Hospital course Narrative No data available for this section [facility] Discharge instructions No data available for this section [facility] Progress note No data available for this section [facility] Summary Purpose Family History No Family History [...] section and content) DATE CREATED AUTHOR 09/10/2017 formerly [facility] DATE CREATED AUTHOR AUTHOR'S ORGANIZ ATION 09/10/2017 [facility] DATE CREATED AUTHOR AUTHOR'S ORGANIZ ATION 03/18/2021 [facility] DATE CREATED AUTHOR AUTHOR'S ORGANIZ ATION 07/02/2021 [facility] DATE CREATED AUTHOR AUTHOR'S ORGANIZ ATION 12/28/2023 [facility] DATE CREATED AUTHOR AUTHOR'S ORGANIZ ATION 01/30/2024 [facility] Care Teams (unrecognized sec tion and content) [...] may be documented in an alternate section No data available for this [...] BE BASED ON THE PRIMARY CLINICAL RECORDS. [facility]. provides no warranty or guarantee of the accuracy or completeness of information in this document.
== END 2024-02-21 08:02 | disposition home or self-care (01) ==
LOC: EC 08:02
PROVIDERS: PCP Internal Medicine; Visit Provider Orthopaedic Surgery
DX: M54.50 Low back pain, unspecified (principal); M51.369 Other intervertebral disc degeneration, lumbar region without mention of lumbar back pain or lower extremity pain
CPT/HCPCS: 72110

== ENCOUNTER 2024-04-17 09:34 | Outpatient (OUT) | payer OTHER, SELFPAY ==
--- NOTE | 2024-04-17 09:47 | CT_ITS ---
[address] [address] Patient Name: VANESSA KEY MRN: [id number] date: 1955 Sex: M Assigned Patient Location: LAB Current Patient Location: LAB Accession/Order Number: [id number] Exam Date: 04/17/2024 10:25 Report Date: 04/17/2024 16:00 At the request of: ARIELLE TERRELL Procedure: CT abdomen pelvis wo/w con EXAMINATION: CT abdomen pelvis wo/w con HISTORY: Abnormal MRI Kidney, Ureteropelvic Junction Obstruction COMPARISON: No relevant comparison available. TECHNIQUE: Axial, Coronal, and Sagittal images were obtained without and/or with IV contrast as indicated by examination type. Dose reduction techniques were achieved by using automated exposure control and/or adjustment of mA and/or kV according to patient size and/or use of iterative reconstruction technique. FINDINGS: LUNG BASES: No visible pulmonary or pleural disease. LIVER: No enlargement, atrophy, suspicious density, or significant focal lesion. BILIARY: No dilatation or calcification. PANCREAS: No lesion, fluid collection, or abnormal duct dilatation. SPLEEN: No enlargement or focal lesion. ADRENALS: No mass or enlargement. KIDNEYS: Prominent left renal parapelvic cyst. No abnormal dilation of the left renal pelvis. No mass, obstruction, or calcification. BOWEL/MESENTERY: Diverticulosis of the distal colon without acute inflammatory changes. No visible mass, obstruction, or bowel wall thickening. AORTA/VASCULAR: No aneurysm or dissection. Mild-moderate atherosclerotic disease. RETROPERITONEUM: No mass or adenopathy. LYMPH NODES: No adenopathy. URINARY BLADDER: No visible focal wall thickening, lesion, or calculus. Limited evaluation of the base of the bladder due to metallic streak artifact from right hip replacement. PELVIC ORGANS: Partially obscured by streak artifact. ABDOMINAL WALL: No mass or hernia. BONES: Right hip replacement. 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 OTHER: Negative. CT/CT abdomen pelvis wo/w con IMPRESSION: 1. Today's contrast enhanced study shows what is suspected to be a dilated left renal pelvis is actually a prominent parapelvic cyst (incidental finding). No abnormal dilation of the left renal collecting system and ureter. 2. Colonic diverticulosis. Electronically authenticated by: NIR SANDOVAL Date: 04/17/2024 16:00
[2024-04-17 09:48] LABS: Estimated GFR (African America >60 (>=60 mL/min/1.73m^2); Estimated GFR (Non-African Ame >60 (>=60 mL/min/1.73m^2)
--- OUTSIDE RECORDS SUMMARY | 2024-04-17 09:49 | XMS_ITS | CCD ---
Author Organization [facility] Care Team Providers Care Delphi Developer Name Role Phone PAULETTE CRAIN Unavailable Unavailable [...] Attending Provider RICHARD RAHMAN Primary Care Physician Elayne Jewell Attending Unavaila ble Elayne Jewell Admitting Unavaila ble Elayne Jewell Attending Unavaila ble Elayne Jewell Referring Unavaila ble Elayne Jewell Attending Unavaila ble Medications Current Medications Medication Drug Class(es) Dates Sig (Normalized) Sig (Original) {1 (Ascorbic Acid 7540 MG / POLYETHYLENE GLYCOL 3350 44634 MG / Potassium Chloride 1200 MG / Sodium Ascorbate 74336 MG / Sodium Chloride 3200 MG Powder for Oral Solution) / 1 (POLYETHYLENE GLYCOL 3350 984216 MG / Potassium Chloride 1000 MG / [...] 01-28-2024 Reminders Reminders From: Adrianna Mccarty To: [facility] Reminders/Recalls; Sent: 01/28/2024 13:02:00 EST Show up: 11/20/2028 13:01:00 EDT Subject: Ambulatory Reminder Due Date/Time: 12/20/2028 13:01:00 EDT Reminder/Recall Addendum by Adrianna Mccarty on January 28, 2024 12:58:27 EST 12/21/2028 From: Elayne Jewell MD To: Adrianna Mccarty; Sent: 01/26/2024 09:08:01 EST Subject: General Message Caller Name: FROYLAN HARDY; Caller Number: , M Colonoscopy 5 years please [facility] Reminders Reminders From: Elmer Powers To: [facility] - Reminders/Recalls; Sent: 12/30/2023 16:11:25 EDT Show up: 11/20/2030 16:11:00 EDT Subject: Ambulatory Reminder Due Date/Time: 12/21/2030 16:11:00 EDT Reminder/Recall Repeat colonoscopy in 7 years(2030) - serrated adenoma per dr jewell, changed it to five.. disregard. Normal [facility] Ambulatory Visit Summaryon 1 03-27-2023 Ambulatory Visit [...] you for choosing us for your care. [facility] Gastroenterology Office/Clin ic Noteon 01-26-2024 Gastroenterology Office/Clinic [...] virus vaccine, inactivated 01/07/2022 Recorded SARS-CoV-2 (COVID-19) [id number] 01/07/2022 Recorded SARS-CoV-2 (COVID-19) mRNA BNT-162b2 vax 02/11/2021 Recorded influenza virus vaccine, inactivated 01/24/2021 Recorded SARS-CoV-2 (COVID-19) mRNA BNT-162b2 vax 06/25/2020 Recorded SARS-CoV-2 (COVID-19) mRNA BNT-162b2 vax 06/03/2020 Recorded influenza virus vaccine, inactivated 01/05/2020 Recorded zoster vaccine, inactivated 08/01/2018 Recorded zoster vaccine, inactivated 04/28/[address] [facility] Comment on above: Result Comment: Elec tronically Signed By: Duane HARRIS, Elayne Mejias\.br\Date and Time Signed: 01/26/24 09:07 EST Surgical Pathology Reporton 12-27-2023 Surgical Pathology Report [address] [id number]- Surgical Pathology Report Collected Date/Time: 12/22/2023 14:14 [...] is entirely submitted in one cassette. (DC) DC:[facility] Microscopic Description Microscopic examination performed unless gross only specified. Normal [facility] Comment on above: Performed By: #### [id number] #### [facility] Laboratory [address] [place] [address] Main OR Intraoperative Recor don 12-23-2023 Main OR Intraoperative Record Main OR Intraoperative Record IntraOp Document Type FT Summary Primary Physician: Elayne Jewell MD Finalized Date/Time: 12/23/23 10:58:27 Pt. Name: FROYLAN HARDY/Sex: 1955 Male Med Rec #: [id number] Physician: Elayne Jewell MD Financial #: [id number] Pt. Type: O Room/Bed: / Admit/Disch: 12/22/23 [...] Shepherd RN, Lisa Mohan Role Performed Anesthesiologist Water Project Manager - Primary Scrub - Primary Corporate Director Of Human Resources Time In 12/22/23 14:00:00 12/22/23 14:00:00 12/22/23 14:00:00 Time Out 12/22/23 14:18:00 12/22/23 14:25:00 12/22/23 14:25:00 Procedure COLONOSCOPY(.) COLONOSCOPY(.) COLONOSCOPY(.) Comments Dr. Louis supervising case Last Modified By: Zain LOMBARDO, Ish Pittman RN, Ish Pires RN 12/22/23 14:25:57 12/22/23 14:25:57 12/22/23 14:25:57 Entry 4 Entry 5 Case Attendee Duane HARRIS, Elayne Murray DNP, DISPATCH MACHINE RUNNER, [facility] [place] Role Performed Surgeon - Primary DISPATCH MACHINE RUNNER Time In 12/22/23 14:00:00 12/22/23 14:17:00 Time [...] p (more content not included)... Normal [facility] Discharge Instructionson Discharge Instructions Discharge [...] Follow Up with Duane HARRIS, Elayne Mejias, [facility], [facility] When: Comments: Office will call to schedule follow up appointment and/or review any pending biopsy results Call for any problems. Where: [address] [place] [address], [address] [address] [phone] Allergies No Known Allergies Education Materials Colon [...] recommended by your (more content not included)... [facility] Comment on above: Result Comment: Elec tronically Signed By: Ricardo LOMBARDO, Binta\.br\Date and Time Signed: 12/22/23 15:07 EDT Inpatient Patient Summaryon 12-22-2023 Inpatient Patient Summary Inpatient Patient Summary [place] [id number] [facility] Clinical Discharge Instructions PERSON INFORMATION Name: FROYLAN HARDY PHYSICIANS Admitting Physician: Elayne eJwell MD Attending Physician: Elayne Jewell MD PCP: RICHARD RAHMAN DO Discharge Diagnosis: Colon cancer screening Comment: PATIENT EDUCATION INFORMATION Instructions: Medication Leaflets: Follow up: MEDICATION LIST Comment: [facility] Main OR PACU II Recordon Main OR PACU II Record Main OR PACU II R ecord PACU Phase II Document Type FT Summary Primary Physician: Elayne Jewell MD Finalized Date/Time: 12/22/23 15:35:35 Pt. Name: FROYLAN HARDY D.O.B./Sex: 1955 Male Med Rec #: [id number] Physician: Elayne Jewell MD Financial #: [id number] Pt. Type: O Room/Bed: / Admit/Disch: 12/22/23 [...] By: Binta Silva RN 12/22/23 15:[address] [facility] Main OR Preoperative Recordo n 12-22-2023 Main OR Preoperative Record Main OR Preoperative Record Holding Area Document Type FT Summary Primary Physician: lEayne Jewell MD Finalized Date/Time: 12/22/23 13:17:19 Pt. Name: FROYLAN HARDY/Sex: 1955 Male Med Rec #: [id number] Physician: Elayne Jewell MD Financial #: [id number] Pt. Type: O Room/Bed: / Admit/Disch: 12/22/23 [...] By: Jana Harrison RN 12/22/23 13:[address] [facility] Outpatient Surgery Discharge Instructionon 12-22-2023 Outpatient Surgery Discharge Instruction Outpatient Surgery Discharge Instruction [place] [id number] Patient Discharge Instructions PERSON INFORMATION Name: FROYLAN [...] to serve you. Thank you for choosing [facility] HERE ARE THE MEDICATION CHANGES THAT OCCURRED DURING YOUR HOSPITAL STAY PATIENT EDUCATION INFORMATION Instructions: Medication Leaflets: Normal [facility] Ambulatory Visit Summaryon 0 12-16-2023 Ambulatory Visit [...] Screen for colon cancer Oral Pickup at [facility]/pharmacy #[id number] Pharmacy Information [facility]/pharmacy #[id number]: [address] [place], [place] [id number] [phone] Allergies No Known Allergies Patient Survey You may receive a survey via text or e-mail asking about your office visit. Please share your experience with us by completing your survey. We appreciate your feedback and thank you for choosing us for your care. [facility] Gastroenterology Office/Clin ic Noteon 12-16-2023 Gastroenterology Office/Clinic Note Gastroenterology Office/Clinic Note Chief Complaint screening HPI Staff This is a 68 year old male who presents today for a screening colonoscopy. Denies Blood Thinners. Denies GLP-1 Agonists. Denies any family history of colon cancer/polyps or IBD. Denies Dysphagia, abdominal pain, constipation, diarrhea or bloody stools. previous EGD/Colonoscopy- 10 years [facility]. Denies recent imaging or labs. History [...] E&M of New Patient Low 30-44 Min 05098 E&M of New Patient Moderate 45-59 Min 50403 Follow-up No qualifying data available Problem List/Past [...] Family History Family history is negative Normal [facility] Comment on above: Result Comment: Elec tronically Signed By: Duane HARRIS, Elayne Mejias\.br\Date and Time Signed: 12/16/23 13:17 EDT Basophils Auto (Bld) [#/Vol] Ordered By: Corbin Mckinney on 07-01-2021 Basophils (Bld) [#/Vol] 0.0 10*3/uL 0.0-0.2 [facility] Basophils/100 WBC Auto (Bld) Ordered By: Corbin Mckinney on 07-01-2021 Basophils/100 WBC (Bld) 0.5 % [facility] Blood hemoglobin measurement (mass/volume)Ordered By: Corbin Mckinney on 07-01-2021 Hemoglobin (Bld) [Mass/Vol] 14.5 g/dL 13.0-17.0 [facility] Blood leukocytes automated c ount (number/volume)Ordered By: Corbin Mckinney on 07-01-2021 WBC (Bld) [#/Vol] 4.8 10*3/uL 4.5-11.0 [facility] Body fluid albumin measureme nt (mass/volume)Ordered By: Corbin Mckinney on 07-01-2021 Albumin (Body fld) [Mass/Vol] 4.2 g/dL 3.2-5.5 [facility] Cholesterol [Mass/volume] in Serum or PlasmaOrdered By: Corbin Mckinney on 07-01-2021 Cholesterol [Mass/Vol] 198 mg/dL 140-200 [facility] Comment on above: Chol less than 200 m g/dl low riskChol 201-239 mg/dl borderline riskChol 240 mg/dl and greater high risk Cholesterol in LDL Calc [Mas s/Vol]Ordered By: Corbin Mckinney on 07-01-2021 Cholesterol in LDL [Mass/Vol] 123 mg/dL 0-100 [facility] Comment on above: LDL ATP III CLASSIFI CATIONLDL less than 100 mg/dL OptimalLDL 100-129 mg/dL Near or above optimalLDL 130-159 mg/dL Borderline highLDL 160-189 mg/dL HighLDL greater than 189 mg/dL Very high Cholesterol in VLDL Calc [Ma ss/Vol]Ordered By: Corbin Mckinney on 07-01-2021 Cholesterol in VLDL [Mass/Vol] 24 mg/dL [facility] Complete Blood Count no refl exon 07-01-2021 Basophils (Bld) [#/Vol] 0.0 10*3/uL Normal 0.0-0.2 [facility] Comment on above: Result Comment: PERF ORMED BY: [place] [address] PATHOLOGIST LEAD IOS DEVELOPER COLE MELENDEZ M.D. Performed By: #### C MP, LIPID, CHC CBC #### [facility] [address] [place] [address] [place] Basophils/100 WBC (Bld) 0.5 % Normal . [facility] Comment on above: Performed By: #### C MP, LIPID, CHC CBC #### [facility] [address] [place] [address] [place] Eosinophils (Bld) [#/Vol] 0.1 10*3/uL Normal 0.0-0.45 [facility] Comment on above: Performed By: #### C MP, LIPID, CHC CBC #### [facility] [address] [place] [address] [place] Eosinophils/100 WBC (Bld) 1.3 % Normal . [facility] Comment on above: Performed By: #### C MP, LIPID, CHC CBC #### [address] Erythrocyte distribution width (RBC) [Ratio] 13.4 % Normal 12.0-14.8 [facility] Comment on above: Performed By: #### C MP, LIPID, CHC CBC #### [address] Hematocrit (Bld) [Volume fraction] 42.1 % Normal 38.8-50.0 [facility] Comment on above: Performed By: #### C MP, LIPID, CHC CBC #### [address] Hemoglobin (Bld) [Mass/Vol] 14.5 g/dL Normal 13.0-17.0 [facility] Comment on above: Performed By: #### C MP, LIPID, CHC CBC #### [address] Lymphocytes (Bld) [#/Vol] 1.3 10*3/uL Normal 1.00-4.8 [facility] Comment on above: Performed By: #### C MP, LIPID, CHC CBC #### [address] Lymphocytes/100 WBC (Bld) 26.8 % Normal . [facility] Comment on above: Performed By: #### C MP, LIPID, CHC CBC #### [address] MCH (RBC) [Entitic mass] 32.4 pg Normal 27.5-35.2 [facility] Comment on above: Performed By: #### C MP, LIPID, CHC CBC #### [address] MCV (RBC) [Entitic vol] 93.8 fL Normal 83.5-101 [facility] Comment on above: Performed By: #### C MP, LIPID, CHC CBC #### [address] Mean Corpuscular HGB Conc 34.5 g/dL Normal 32.5-35.6 [facility] Comment on above: Performed By: #### C MP, LIPID, CHC CBC #### [facility] [address] [place] [address] [place] Monocytes (Bld) [#/Vol] 0.4 10*3/uL Normal 0.0-0.8 [facility] Comment on above: Performed By: #### C MP, LIPID, CHC CBC #### [facility] [address] [place] [address] [place] Monocytes/100 WBC (Bld) 7.7 % Normal . [facility] Comment on above: Performed By: #### C MP, LIPID, CHC CBC #### [facility] [address] Neutrophils (Bld) [#/Vol] 3.0 10*3/uL Normal 1.8-7.7 [facility] Comment on above: Performed By: #### C MP, LIPID, CHC CBC #### [facility] [address] [place] [address] [place] Neutrophils/100 WBC (Bld) 63.7 % Normal . [facility] Comment on above: Performed By: #### C MP, LIPID, CHC CBC #### [facility] [address] [place] [address] [place] Nucleated RBC/100 WBC (Bld) [Ratio] 0.1 % Normal 0-0.5 [facility] Comment on above: Performed By: #### C MP, LIPID, CHC CBC #### [facility] [address] [place] [address] [place] Platelet mean volume (Bld) [Entitic vol] 7.9 fL Normal 6.6-10.1 [facility] Comment on above: Performed By: #### C MP, LIPID, CHC CBC #### [facility] [address] [place] [address] [place] Platelets (Bld) [#/Vol] 240 10*3/uL Normal 150-450 [facility] Comment on above: Performed By: #### C MP, LIPID, CHC CBC #### [facility] [address] RBC (Bld) [#/Vol] 4.49 10*6/uL Normal 3.90-5.60 [facility] Comment on above: Performed By: #### C MP, LIPID, CHC CBC #### [facility] [address] WBC (Bld) [#/Vol] 4.8 10*3/uL Normal 4.5-11.0 [facility] Comment on above: Performed By: #### C MP, LIPID, CHC CBC #### [facility] [address] [place] [address] Comprehensive Metabolic Pane jimbo 07-01-2021 Albumin [Mass/Vol] 4.2 g/dL Normal 3.2-5.5 [facility] Comment on above: Performed By: #### C MP, LIPID, [facility] CBC #### [address] Albumin/Globulin [Mass ratio] 1.7 {ratio} Normal [facility] Comment on above: Performed By: #### C MP, LIPID, [facility] CBC #### [address] ALP [Catalytic activity/Vol] 49 U/L Normal 32-92 [facility] Comment on above: Performed By: #### C MP, LIPID, [facility] CBC #### [facility] [address] [place] [address] ALT [Catalytic activity/Vol] 16 U/L Normal 10-60 [facility] Comment on above: Performed By: #### C MP, LIPID, CHC CBC #### [facility] [address] [place] [address] AST [Catalytic activity/Vol] 21 U/L Normal 10-42 [facility] Comment on above: Performed By: #### C MP, LIPID, CHC CBC #### [facility] [address] [place] [address] Bilirubin [Mass/Vol] 0.7 mg/dL Normal 0.3-1.2 [facility] Comment on above: Performed By: #### C MP, LIPID, CHC CBC #### [facility] [address] Calcium [Mass/Vol] 9.6 mg/dL Normal 8.2-10.2 [facility] Comment on above: Performed By: #### C MP, LIPID, CHC CBC #### [facility] [address] Chloride [Moles/Vol] 104 mmol/L Normal 95-114 [facility] Comment on above: Performed By: #### C MP, LIPID, CHC CBC #### [address] CO2 [Moles/Vol] 23.7 mmol/L Normal 22.0-30.0 [facility] Comment on above: Performed By: #### C MP, LIPID, CHC CBC #### [address] Creatinine [Mass/Vol] 0.92 mg/dL Normal 0.64-1.27 [facility] Comment on above: Performed By: #### C MP, LIPID, CHC CBC #### [address] Estimated GFR ( Rebekah > 60 [facility] Comment on above: Result Comment: GFR estimated reference range: According to KDOQI guidelines, <60 ml/min/1.73m2 is sufficient to diagnose a patient with chronic kidney disease. Performed By: #### C MP, LIPID, CHC CBC #### [address] Estimated GFR (Non- Am > 60 [facility] Comment on above: Performed By: #### C MP, LIPID, CHC CBC #### [address] Globulin (S) [Mass/Vol] 2.5 g/dL [facility] Comment on above: Performed By: #### C MP, LIPID, CHC CBC #### [address] Glucose [Mass/Vol] 111 mg/dL High 70-100 [facility] Comment on above: Result Comment: [facility] Glucose Reference Range is dependent on time and content of last meal. Glucose of more than 200 mg/dL in a nonstressed, ambulatory subject supports the diagnosis of Diabetes Mellitus. ADA recommended reference range Performed By: #### C MP, LIPID, CHC CBC #### [facility] [address] Potassium [Moles/Vol] 4.4 mmol/L Normal 3.5-5.1 [facility] Comment on above: Performed By: #### C MP, LIPID, CHC CBC #### [facility] [address] Protein [Mass/Vol] 6.7 g/dL Normal 6.1-7.9 [facility] Comment on above: Performed By: #### C MP, LIPID, CHC CBC #### [facility] [address] Sodium [Moles/Vol] 138 mmol/L Normal 136-146 [facility] Comment on above: Performed By: #### C MP, LIPID, CHC CBC #### [facility] [address] [place] [address] [place] Urea nitrogen [Mass/Vol] 19 mg/dL Normal 9-23 [facility] Comment on above: Performed By: #### C MP, LIPID, CHC CBC #### [facility] [address] [place] [address] [place] Creatinine and Glomerular fi ltration rate.predicted panel (S/P/Bld)Ordered By: Corbin Mckinney on 07-01-2021 Creatinine [Mass/Vol] 0.92 mg/dL 0.64-1.27 [facility] Eosinophils Auto (Bld) [#/Vo l]Ordered By: Corbin Mckinney on 07-01-2021 Eosinophils (Bld) [#/Vol] 0.1 10*3/uL 0.0-0.45 [facility] Eosinophils/100 WBC Auto (Bl d)Ordered By: Corbin Mckinney on 07-01-2021 Eosinophils/100 WBC (Bld) 1.3 % [facility] Erythrocyte distribution wid th Auto (RBC) [Ratio]Ordered By: Corbin Mckinney on 07-01-2021 Erythrocyte distribution width (RBC) [Ratio] 13.4 % 12.0-14.8 [facility] Estimated glomerular filtrat ion rate (GFR) non- AmericanOrdered By: Corbin Mckinney on 07-01-2021 GFR/1.73 sq M.predicted among non-blacks MDRD (S/P/Bld) [Vol rate/Area] > 60 mL/Min [facility] Globulin Calc (S) [Mass/Vol] Ordered By: Corbin Mckinney on 07-01-2021 Globulin (S) [Mass/Vol] 2.5 g/dL [facility] Hematocrit Auto (Bld) [Volum e fraction]Ordered By: Corbin Mckinney on 07-01-2021 Hematocrit (Bld) [Volume fraction] 42.1 % 38.8-50.0 [facility] Laboratory - Hematology and Cell countsOrdered By: Corbin Mckinney on 07-01-2021 Nucleated RBC/100 WBC (Bld) [Ratio] 0.1 % 0-0.5 [facility] Lipid Panelon 07-01-2021 Cholesterol [Mass/Vol] 198 mg/dL Normal 140-200 [facility] Comment on above: Result Comment: Chol less than 200 mg/dl low risk Chol 201-239 mg/dl borderline risk Chol 240 mg/dl and greater high risk Performed By: #### C MP, LIPID, [facility] CBC #### [facility] [address] [place] [address] [place] Cholesterol in HDL [Mass/Vol] 50 mg/dL Normal 29-71 [facility] Comment on above: Result Comment: HDL CHOL ATP-III CLASSIFICATION Cardiovascular Risk HDL > or equal to 60 mg/dL LOW HDL < 40 mg/dL HIGH Performed By: #### C MP, LIPID, [facility] CBC #### [facility] [address] [place] [address] [facility] Cholesterol.total/Chol esterol in HDL [Mass ratio] 4.0 {ratio} Normal <5.0 [facility] Comment on above: Result Comment: PERF ORMED BY: [place] [address] PATHOLOGIST LEAD IOS DEVELOPER COLE MELENDEZ M.D. Performed By: #### C MP, LIPID, [facility] CBC #### [address] LDL Cholesterol,Calculated 123 mg/dL High 0-100 [facility] Comment on above: Result Comment: LDL ATP III CLASSIFICATION LDL less than 100 mg/dL Optimal LDL 100-129 mg/dL Near or above optimal LDL 130-159 mg/dL Borderline high LDL 160-189 mg/dL High LDL greater than 189 mg/dL Very high Performed By: #### C MP, LIPID, [facility] CBC #### [address] Triglyceride w/Reflex 124 mg/dL Normal 35-149 [facility] Comment on above: Result Comment: TRIG ATP III CLASSIFICATION TRIG less than 150 mg/dL Normal TRIG 150-199 mg/dL Borderline high TRIG 200-500 mg/dL High TRIG greater than 500 mg/dL Very high Standard traceable to the Center for Disease Conrtrol and Prevention (CDC) test method. Performed By: #### C MP, LIPID, [facility] CBC #### [facility] [address] [place] [address] VLDL CHOLESTEROL 24 mg/dL Normal [facility] Comment on above: Performed By: #### C MP, LIPID, [facility] CBC #### [address] Lymphocytes Auto (Bld) [#/Vo l]Ordered By: Corbin Mckinney on 07-01-2021 Lymphocytes (Bld) [#/Vol] 1.3 10*3/uL 1.00-4.8 [facility] Lymphocytes/100 WBC Auto (Bl d)Ordered By: Corbin Mckinney on 07-01-2021 Lymphocytes/100 WBC (Bld) 26.8 % [facility] MCH Auto (RBC) [Entitic mass ]Ordered By: Corbin Mckinney on 07-01-2021 MCH (RBC) [Entitic mass] 32.4 pg 27.5-35.2 [facility] MCHC Auto (RBC) [Mass/Vol]Or dered By: Corbin Mckinney on 07-01-2021 MCHC (RBC) [Mass/Vol] 34.5 g/dL 32.5-35.6 [facility] MCV Auto (RBC) [Entitic vol] Ordered By: Corbin Mckinney on 07-01-2021 MCV (RBC) [Entitic vol] 93.8 fL 83.5-101 [facility] Monocytes Auto (Bld) [#/Vol] Ordered By: Corbin Mckinney on 07-01-2021 Monocytes (Bld) [#/Vol] 0.4 10*3/uL 0.0-0.8 [facility] Monocytes/100 WBC Auto (Bld) Ordered By: Corbin Mckinney on 07-01-2021 Monocytes/100 WBC (Bld) 7.7 % [facility] Neutrophils Auto (Bld) [#/Vo l]Ordered By: Corbin Mckinney on 07-01-2021 Neutrophils (Bld) [#/Vol] 3.0 10*3/uL 1.8-7.7 [facility] Neutrophils/100 WBC Auto (Bl d)Ordered By: Corbin Mckinney on 07-01-2021 Neutrophils/100 WBC (Bld) 63.7 % [facility] No Panel InformationOrdered By: Corbin Mckinney on 07-01-2021 Estimated GFR () > 60 mL/Min [facility] Comment on above: GFR estimated refere nce range: According to KDOQI guidelines, <60 ml/min/1.73m2 is sufficient to diagnose a patient with chronic kidney disease. Pharmacy Creatinine Clearance (Chem N/A [facility] Platelet mean volume Auto (B ld) [Entitic vol]Ordered By: Corbin Mckinney on 07-01-2021 Platelet mean volume (Bld) [Entitic vol] 7.9 fL 6.6-10.1 [facility] Platelets Auto (Bld) [#/Vol] Ordered By: Corbin Mckinney on 07-01-2021 Platelets (Bld) [#/Vol] 240 10*3/uL 150-450 [facility] Protein [Mass/volume] in Ser um or PlasmaOrdered By: Corbin Mckinney on 07-01-2021 Protein [Mass/Vol] 6.7 g/dL 6.1-7.9 [facility] RBC Auto (Bld) [#/Vol]Ordere d By: Corbin Mckinney on 07-01-2021 RBC (Bld) [#/Vol] 4.49 10*6/uL 3.90-5.60 [facility] Serum or plasma alanine fiore otransferase measurement without P-5'-P (enzymatic activiOrdered By: Corbin Mckinnye on 07-01-2021 ALT No additional P-5'-P [Catalytic activity/Vol] 16 U/L 10-60 [facility] Serum or plasma albumin/glob ulin mass ratioOrdered By: Corbin Mckinney on 07-01-2021 Albumin/Globulin [Mass ratio] 1.7 {ratio} [facility] Serum or plasma alkaline crow sphatase measurement (enzymatic activity/volume)Ordered By: Corbin Mckinney on 07-01-2021 ALP [Catalytic activity/Vol] 49 U/L 32-92 [facility] Serum or plasma aspartate am inotransferase measurement (enzymatic activity/volume)Ordered By: Corbin Mckinney on 07-01-2021 AST [Catalytic activity/Vol] 21 U/L 10-42 [facility] Serum or plasma calcium carlos manuel urement (mass/volume)Ordered By: Corbin Mckinney on 07-01-2021 Calcium [Mass/Vol] 9.6 mg/dL 8.2-10.2 [facility] Serum or plasma chloride rafa surement (moles/volume)Ordered By: Corbin Mckinney on 07-01-2021 Chloride [Moles/Vol] 104 mmol/L 95-114 [facility] Serum or plasma glucose carlos manuel urement (mass/volume)Ordered By: Corbin Mckinney on 07-01-2021 Glucose [Mass/Vol] 111 mg/dL 70-100 [facility] Comment on above: ADA recommended refe rence rangeRandom Glucose Reference Range is dependent on time and content of last meal. Glucose of more than 200 mg/dL in a nonstressed, ambulatory subject supports the diagnosis of Diabetes Mellitus. Serum or plasma high density lipoprotein (HDL) cholesterol measurementOrdered By: Corbin Mckinney on 07-01-2021 Cholesterol in HDL [Mass/Vol] 50 mg/dL 29- [facility] Comment on above: HDL CHOL ATP-III CLA SSIFICATION Cardiovascular RiskHDL > or equal to 60 mg/dL LOWHDL < 40 mg/dL HIGH Serum or plasma potassium me asurement (moles/volume)Ordered By: Corbin Mckinney on 07-01-2021 Potassium [Moles/Vol] 4.4 mmol/L 3.5-5.1 [facility] Serum or plasma sodium measu rement (moles/volume)Ordered By: Corbin Mckinney on 07-01-2021 Sodium [Moles/Vol] 138 mmol/L 136-146 [facility] Serum or plasma total biliru bin measurement (mass/volume)Ordered By: Corbin Mckinney on 07-01-2021 Bilirubin [Mass/Vol] 0.7 mg/dL 0.3-1.2 [facility] Serum or plasma total carbon dioxide measurement (moles/volume)Ordered By: Corbin Mckinney on 07-01-2021 CO2 [Moles/Vol] 23.7 mmol/L 22.0-30.0 [facility] Serum or plasma total choles terol/high density lipoprotein (HDL) cholesterol mass ratOrdered By: Corbin Mckinney on 07-01-2021 Cholesterol.total/Chol esterol in HDL [Mass ratio] 4.0 {ratio} [facility] Serum or plasma urea nitroge n measurement (mass/volume)Ordered By: Corbin Mckinney on 07-01-2021 Urea nitrogen [Mass/Vol] 19 mg/dL 9- [facility] Triglyceride [Mass/volume] i n Serum or PlasmaOrdered By: Corbin Mckinney on 07-01-2021 Triglyceride [Mass/Vol] 124 mg/dL 35-149 [facility] Comment on above: TRIG ATP III CLASSIF ICATIONTRIG less than 150 mg/dL NormalTRIG 150-199 mg/dL Borderline highTRIG 200-500 mg/dL High TRIG greater than 500 mg/dL Very highStandard traceable to the Center for Disease Conrtrol and Prevention (CDC) test method. XR chest 2V*on 07-01-2021 XR chest 2V* [facility] Main [place] [address] [place] [address] XRay Report Signed Patient: Froylan Hardy MR#: [id number] : 1955 Acct:[id number] Age/Sex: 66 / M ADM Date: 07/01/21 Loc: [place] Room: Type: [facility] Attending Dr: Corbin Mckinney Jr, DO Ordering [...] 10:06 AM Dictation Location: RADIO-PC-13 Transcribed By: [facility] 07/01/21 1006 Dictated By: Zeinab Reyes MD 07/01/21 1005 Signed By: 07/01/21 1006 Normal [facility] Vital Signs Date Time Vital Sign Value Performing Clinician Facility 01-26-2024 08:22-0500 Blood Pressure Location [facility]Picker [facility] 01-26-2024 08:22-0500 Diastolic blood pressure 78 mm[Hg] Holly Sarmini [facility] 01-26-2024 08:22-0500 Heart rate 78 /min Holly Sarmini [facility] 01-26-2024 08:22-0500 Respiratory rate 18 /min Holly Sarmini [facility] 01-26-2024 08:22-0500 Systolic blood pressure 124 mm[Hg] Holly Sarmini [facility] 12-24-2023 09:15-0400 Body mass index (BMI) [Ratio] 24.7 kg/m2 [facility] 12-24-2023 09:15-0400 Diastolic blood pressure 85 mm[Hg] [facility] 12-24-2023 09:15-0400 Systolic blood pressure 135 mm[Hg] [facility] 12-24-2023 08:57-0400 Body height 175.26 cm [facility] 12-24-2023 08:57-0400 Body weight 75.92 kg [facility] 12-24-2023 08:57-0400 Respiratory rate 12 /min [facility] 12-22-2023 15:10-0400 Blood Pressure Location Holly Sarmini [facility] 12-22-2023 15:10-0400 Diastolic blood pressure 85 mm[Hg] Holly Sarmini [facility] 12-22-2023 15:10-0400 Heart rate 75 /min Holly Sarmini [facility] 12-22-2023 15:10-0400 Mean blood pressure 105 mm[Hg] Holly Sarmini [facility] 12-22-2023 15:10-0400 Respiratory rate 16 /min Holly Sarmini [facility] 12-22-2023 15:10-0400 SaO2% (BldA) [Mass fraction] 97 % Holly Sarmini [facility] 12-22-2023 15:10-0400 Systolic blood pressure 144 mm[Hg] Holly Sarmini [facility] 12-22-2023 14:55-0400 Blood Pressure Location Holly Sarmini [facility] 12-22-2023 14:55-0400 Diastolic blood pressure 101 mm[Hg] Holly Sarmini [facility] 12-22-2023 14:55-0400 Heart rate 82 /min Holly Sarmini [facility] 12-22-2023 14:55-0400 Mean blood pressure 108 mm[Hg] Holly Sarmini [facility] 12-22-2023 14:55-0400 Respiratory rate 16 /min Holly Sarmini [facility] 12-22-2023 14:55-0400 SaO2% (BldA) [Mass fraction] 94 % Holly Sarmini [facility] 12-22-2023 14:55-0400 Systolic blood pressure 122 mm[Hg] Holly Sarmini [facility] 12-22-2023 14:40-0400 Blood Pressure Location Holly Sarmini [facility] 12-22-2023 14:40-0400 Diastolic blood pressure 82 mm[Hg] Holly Sarmini [facility] 12-22-2023 14:40-0400 Heart rate 82 /min Holly Sarmini [facility] 12-22-2023 14:40-0400 Mean blood pressure 95 mm[Hg] Holly Sarmini [facility] 12-22-2023 14:40-0400 Respiratory rate 19 /min Holly Sarmini [facility] 12-22-2023 14:40-0400 SaO2% (BldA) [Mass fraction] 93 % Holly Sarmini [facility] 12-22-2023 14:40-0400 Systolic blood pressure 120 mm[Hg] Holly Sarmini [facility] 12-22-2023 14:35-0400 Respiratory rate 16 /min Holly Sarmini [facility] 12-22-2023 14:30-0400 Respiratory rate 21 /min Holly Sarmini [facility] 12-22-2023 14:26-0400 Body temperature 97.88 [degF] Holly Sarmini [facility] 12-22-2023 14:20-0400 Respiratory rate 24 /min Holly Sarmini [facility] 12-22-2023 13:29-0400 Body temperature 97.7 [degF] Holly Sarmini [facility] 12-16-2023 12:36-0400 Diastolic blood pressure 73 mm[Hg] Holly Sarmini [facility] 12-16-2023 12:36-0400 Heart rate 89 /min Holly Sarmini [facility] 12-16-2023 12:36-0400 Systolic blood pressure 126 mm[Hg] Holly Sarmini [facility] 12-16-2023 12:32-0400 Blood Pressure Location Holly Sarmini [facility] 12-16-2023 12:32-0400 Respiratory rate 16 /min Holly Sarmini [facility] Encounters Encounter Date Encounter Type Care Provider Facility Start: 01-26-2024 End: 01-26-2024 ambulatory Holly Talal Sarmini Facility:[facility] Start: 01-26-2024 End: 01-26-2024 Patient encounter procedure Holly Talal Sarmini [facility] Start: 12-24-2023 End: 12-24-2023 ambulatory [facility] Work Phone: Start: 12-24-2023 End: 12-24-2023 Patient encounter procedure [facility] Work Phone: Start: 12-22-2023 End: 12-22-2023 ambulatory Holly Talal Sarmini Facility:[facility] Start: 12-22-2023 End: 12-22-2023 Patient encounter procedure Holly Talal Sarmini [facility] Start: 12-16-2023 End: 12-16-2023 ambulatory Holly Talal Sarmini Facility:[facility] Start: 12-16-2023 End: 12-16-2023 Patient encounter procedure Holly Talal Sarmini [facility] Start: 12-02-2023 ambulatory Holly Sarmini Facili ty:[facility] Start: 07-01-2021 End: 07-01-2021 Departed Referred DO Corbin Mckinney Jr Work Phone: [facility] [address] Start: 03-17-2021 End: 03-18-[address] NONE LISTED REQUEST Facility:[facility] Start: 06-25-2020 End: 06-26-[address] NONE LISTED REQUEST Facility:[facility] Start: 06-03-2020 End: 06-04-[address] GIVENS LISTED REQUEST Facility: Start: 05-31-2017 Ambulatory PAULETTE CRAIN Facility:[id number] Start: 05-31-2017 Ambulatory Facility:[id number] Procedures Date Procedure Procedure Detail Performing Clinician Start: 12-22-2023 Colonoscopy Elayne jackson Start: 07-01-2021 Plain chest X-ray DO Ed acosta Radatz Jr Work Phone: Start: 03-17-[address] GIVENS L ISTED REQUEST Comment on above: Performed By: #### D ATPSA #### [facility] [address] [place] [address] Dr. Shelli Sood Start: 02-07-2016 right inguinal herni a repair Holly Sarmini hernia repair as child 1 Muh ammad Sarmini Comment on above: unknown side History of right hip replacement Holly Sarmini left ring finger ten don repair Holly Sarmini right ankle fx Holly Sarm ini Plan of Treatment Date Care Activity Detail Author [facility] Immunizations Immunization Date Immunization Notes Care Provider Fa cility 01-07-2022 influenza virus vaccine, unspecified formulation Holly Sarmini [facility] 01-07-2022 SARS-CoV-2 (COVID-19 ) [id number] Holly Sarmini [facility] 02-11-2021 SARS-CoV-2 (COVID-19 ) mRNA BNT-162b2 vax Holly Sarmini [facility] 01-24-2021 influenza virus vaccine, unspecified formulation Holly Sarmini [facility] 06-25-2020 SARS-CoV-2 (COVID-19 ) mRNA BNT-162b2 vax Holly Sarmini [facility] 06-03-2020 SARS-CoV-2 (COVID-19 ) mRNA BNT-162b2 vax Holly Sarmini [facility] 01-05-2020 influenza virus vaccine, unspecified formulation Holly Sarmini [facility] 08-01-2018 zoster vaccine recombinant Holly Sarmini [facility] 04-28-2018 zoster vaccine recombinant Holly Sarmini [facility] Payers Date Payer Category Payer Medicare [id number] 2019 Private Health Insurance [id number] 1957 Self-pay [id number] 1955 Unknown [id number] [id number] [id number] 1955 Unknown [id number] 2.16.8 [id number] 1955 Unknown [id number] 2.16.8 [id number] 1955 Unknown [id number] 2.16.8 [id number] Medicare Medicare [id number] Unknown FROYLAN HARDY Unknown [id number] 2.16.84 [id number] Unknown [id number] 2.16.84 [id number] Unknown [id number] 2.16.84 [id number] Social History Date Type Detail Facility Tobacco smoking stat [facility] Unknown if ever smoked [facility] Work Phone: Start: 1955 Sex Assigned At Male [facility] Start: 12-16-2023 End: 01-26-2024 Tobacco smoking status Never smoked tobacco (finding) [facility] Tobacco smoking status Never [facility] Sex Assigned At Male [facility] Functional Status Date Assessment Result Facility 01-26-2024 Functional Status N/A [facility] 12-22-2023 Functional Status N/A [facility] 12-16-2023 Functional Status N/A [facility] Clinical Notes 12-22-2023 Note Date [...] hard liquor (44 mL). General instructions Take fofb-qiw-svdyoro and prescription medicines only as told by [...] provider. Document Revised: 06/26/2020 Document Reviewed: 06/26/2020 [employer] Patient Education 2023 [employer]. 12/22/2023 15:03:35 Colonoscopy, Care After Surgery Salam [...] get enough exercise. You smoke. You take lzmy-wmi-orvuong pain medicines. You have a family history [...] Follow these instructions at home: Medicines Take qbbw-ago-sdvzyfl and prescription medicines only as told by your provider. If told, take a fiber supplement or probiotic. Managing constipation Your condition may cause constipation. To prevent or treat constipation, you may need to: Drink enough fluid to keep your pee (urine) pale yellow. Take smit-drl-vxvmfte or prescription medicines. Eat foods that are [...] provider. Document Revised: 12/03/2022 Document Reviewed: 12/03/2022 [employer] Patient Education 2023 [employer]. 12/22/2023 15:03:20 Hemorrhoids, Dfup-yl-Tqhh Hemorrhoids Hemorrhoids are swollen veins that may [...] Follow these instructions at home: Medicines Take htiv-ezg-npiggsc and prescription medicines only as told by [...] provider. Document Revised: 11/18/2022 Document Reviewed: 11/18/2022 [employer] Patient Education 2023 [employer]. Follow Up Care 12/16/2023 13:40:15 With:Duane HARRIS, ANUJA Taylor, [facility] Address: [address] [place] [address], [address] [address] [phone] When: Unknown Comments:Office will call to schedule follow up appointment and/or review any pending biopsy resultsCall for any problems. [facility] 12-22-2023 Note Progress Note-Physic lilo [...] family history is negative. Procedure history: Colonoscopy ([id number]) on 12/22/2023 at 68 Years. right inguinal hernia repair on 02/07/2016 at 60 Years. History of right hip replacement ([id number]). right ankle fx. left ring finger tendon [...] 84 mmHg mmHg (more content not included)... [facility] Comment on above: Result Comment: Elec tronically Signed By: Carlitos Louis MD\.br\Date and Time Signed: 12/22/23 16:16 EDT 12-22-2023 Note Progress Note-Physic lilo Patient: FROYLAN HARDY Age: 68 years Sex: Male : 1955 Associated Diagnoses: None Author: Carlitos Louis MD Postoperative Information Postoperative disposition: Postoperative disposition: To PACU. Optimetrix number: Optimetrix number [id number]. Anesthetic utilized: General. Health Status Allergies: Allergic [...] when meets criteria ( To home ). [facility] Comment on above: Result Comment: Elec tronically [...] exercise. ? You smoke. ? You take crrq-bla-aowjare pain medicines. ? You have a family [...] these instructions at home: Medicines ? Take whfv-vup-kgwazvg and prescription medicines only as told by your provider. ? If told, take a fiber supplement or probiotic. Managing constipation Your condition may cause constipation. To prevent or treat constipation, you may need to: ? Drink enough fluid to keep your pee (urine) pale yellow. ? Take gqdu-abu-zmqudgt or prescription medicines. ? Eat foods that [...] provider. Document Orly (more content not included)... [facility] 12-22-2023 Note Endoscopic Procedure Report - Other [...] 60 Years. History of right hip replacement ([id number]). right ankle fx. left ring finger tendon repair. hernia repair as child. Comments: 01/31/2016 8:20 MICHELLE Chapin RN, [facility] unknown side. Past Medical History No active or resolved past medical history items have been selected or recorded.. reviewed. Family History Entire family history is negative.. reviewed. Procedure History right inguinal hernia repair on 02/07/2016 at 60 Years. History of right hip replacement ([id number]). right ankle fx. left ring finger tendon [...] medications, Avoid NSAIDs. (more content not included)... [facility] Comment on above: Result Comment: Elec tronically Signed By: Duane HARRIS, Elayne Mejias\.br\Date and Time Signed: 12/22/23 14:27 EDT Other Comment: Noreen schulte Attachment - attachment storage system not supported [id number] Can be viewed in source system Missing Attachment - attachment storage system not supported [id number] Can be viewed in source system Missing Attachment - attachment storage system not supported [id number] Can be viewed in source system Missing Attachment - attachment storage system not supported [id number] Can be viewed in source system Missing Attachment - attachment storage system not supported [id number] Can be viewed in source system Missing Attachment - attachment storage system not supported [id number] Can be viewed in source system Missing Attachment - attachment storage system not supported [id number] Can be viewed in source system Missing Attachment - attachment storage system not supported [id number] Can be viewed in source system Missing Attachment - attachment storage system not supported [id number] Can be viewed in source system Missing Attachment - attachment storage system not supported [id number] Can be viewed in source system Missing Attachment - attachment storage system not supported [id number] Can be viewed in source system Missing Attachment - attachment storage system not supported [id number] Can be viewed in source system Missing Attachment - attachment storage system not supported [id number] Can be viewed in source system Missing Attachment - attachment storage system not supported [id number] Can be viewed in source system Missing Attachment - attachment storage system not supported [id number] Can be viewed in source system Missing Attachment - attachment storage system not supported [id number] Can be viewed in source system Missing Attachment - attachment storage system not supported [id number] Can be viewed in source system 10-02-2024 Evaluation + Plan note Extrac nancy from: Title:ANES Pre-operative Note 2022 Author:Carlitos Jones Date:12/22/23 Plan [place] [employer] (ASA) physical status classification: Class I. Anesthetic Preoperative Plan: Anesthesia General. Extracted from: Title:ANES Post-operative Note---General Author: Carlitos Louis MD Date:12/22/23 Plan Transfer/Discharge: Transfer/Discharge Discharge when meets criteria ( To home ). Extracted from: Title:1Preop H&P Author:Elayne Jewell MD Date:12/22/23 Impression and Plan Impression: screening colon cancer Plan: - Colonoscopy [facility] 10-02-2024 NoteHistory and Physical Patient: [...] 60 Years. History of right hip replacement ([id number]). right ankle fx. left ring finger tendon [...] Plan Impression: screening colon cancer [facility]:Result Comment: Electronically Signed By: Duane HARRIS, Elayne Mejias\.br\Date and Time Signed: 12/22/23 13:57 EDTEvaluation + Plan note Future Appointments Appointment Date:12/22/2023 02:00:00 PM Scheduled Provider: Location:[facility] Appointment Type:Surgery FT [facility] Evaluation noteNo assessment information available [facility] Work Phone: Evaluation note* Diagnosis Onset Date Resolution Status Screening for colon cancer a cute Screening PSA (prostate specific antigen) acute [facility] Work Phone: Hospital course Narrative No data available for this section [facility] Hospital Discharge instructions No data available for this section [facility] Progress note No data available for this section [facility] Summary Purpose Family History No Family [...] section and content) DATE CREATED AUTHOR 09/10/2017 [facility] DATE CREATED AUTHOR AUTHOR'S ORGANIZ ATION 09/10/2017 [facility] DATE CREATED AUTHOR AUTHOR'S ORGANIZ ATION 03/18/2021 [facility] DATE CREATED AUTHOR AUTHOR'S ORGANIZ ATION 07/02/2021 [facility] DATE CREATED AUTHOR AUTHOR'S ORGANIZ ATION 12/28/2023 [facility] DATE CREATED AUTHOR AUTHOR'S ORGANIZ ATION 01/30/2024 [facility] Care Teams (unrecognized sec tion and content) [...] BE BASED ON THE PRIMARY CLINICAL RECORDS. [employer] [facility]. provides no warranty or guarantee of the accuracy or completeness of information in this document.
== END 2024-04-17 09:35 | disposition home or self-care (01) ==
LOC: LAB 09:34
PROVIDERS: PCP Internal Medicine; Visit Provider Internal Medicine
DX: N13.5 Crossing vessel and stricture of ureter without hydronephrosis (principal); R93.429 Abnormal radiologic findings on diagnostic imaging of unspecified kidney; N13.4 Hydroureter; K57.90 Diverticulosis of intestine, part unspecified, without perforation or abscess without bleeding
CPT/HCPCS: 36415; 74178; 82565; Q9967

== ENCOUNTER 2025-02-02 08:29 | Outpatient (OUT) | payer OTHER, SELFPAY | END 2025-02-02 08:30 | disposition home or self-care (01) | LOC: LAB 08:30 | PROVIDERS: PCP Internal Medicine; Visit Provider Internal Medicine | DX: Z12.5 Encounter for screening for malignant neoplasm of prostate (principal) | CPT/HCPCS: 36415; G0103 ==